=== PATIENT | female | born 1985 | race Hispanic/Latino ===

== ENCOUNTER 2017-04-24 10:45 | Inpatient (IN) | payer MEDICAID ==
[2017-04-24] VITALS (10 sets, daily range): BP systolic 109–119; BP diastolic 64–77; PULSE 88–97; RESP 15–18; O2SAT 95–99
[~2017-04-24] VITALS: Ht 149.9 cm; Wt 67.1 kg
[~2017-04-24 10:45] MED LIST: PREN1TAB69 PO; [UNRECOGNIZED DRUG - CODE] PO; actigall PO
--- NOTE | 2017-04-24 11:04 | ED.REPORT ---
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 The pt was at work this morning when she developed a gradual onset headache then became suddenly dizzy with blurred vision. She drank water and sat down, then experienced a syncopal episode. When she woke, she had a 10/ 10 pain in her pelvic area. The pt has also noticed recent yellowing of her eyes but denies nausea, vomiting, cough and chest pain. She recently had a negative workup for abdominal pain. The pt was on Mirena then Depo-Provera shots , which she stopped taking one month ago. She has not had a period in "years." Nursing Notes Stated Complaint: SYNCOPAL Nursing Notes Reviewed: Yes Allergies: Coded Allergies: No Known Allergies (Verified , 04/24/17) No Active Prescriptions or Reported Meds General Time Seen by Provider: 11:04 Chief Complaint Other (Syncope) Hx Obtained From: Patient, EMS Arrived By: Ambulance Onset Occurred: 46 - 59 minutes ago Recent Healthcare: Recent doctor visit Similar Sx Previous: No Past Medical History Past Medical History heart murmur pneumonia echocardiogram 11/2016: ASD with left to right shunt Past Surgical History shunt Smoking History Unknown if Ever Smoker Social History Other Social History: Good social support Ambulatory Status Independent Review of Systems Eyes: Reports: Blurred bilateral Respiratory: Denies: Non-productive cough, Shortness of breath Cardiovascular: Denies: Chest pain GI: Denies: Abdominal pain, Nausea, Vomiting Musculoskeletal: Denies: Back pain, Neck pain Skin: Denies Rash Neurologic: Reports: Dizziness, Headache, Syncope Complete sys rev & neg: except as marked. Additional Review of Systems Female: Reports: Pelvic pain Physical Exam Initial Vital Signs Vital Signs (First) Date Time Temp Pulse Resp B/P Pulse Ox O2 Delivery O2 Flow Rate FiO2 04/24/17 10:50 36.8 90 15 109/64 97 Room Air Initial VS: Reviewed General/Constitutional: Awake, Alert Respiratory / Chest: Atraumatic, Breath sounds NL, Breath sounds = bilat, No respiratory distress Cardiovascular: Heart rate NL, Regular rhythm murmur present Lower Extremity / Pelvis / MS: Atraumatic, Full range of motion Neurologic: Oriented X3, Speech NL, No motor deficits, No sensory deficits Head / Eyes: Atraumatic, Normocephalic, PERRL, EOMI ENT: Atraumatic, Airway patent, Mucous membranes moist Neck: Atraumatic, Supple, Full range of motion Abdomen: Atraumatic, Soft, Non-tender Back: Atraumatic, Full range of motion Skin: Atraumatic, No rash, Warm, Dry mildly jaundiced Psychiatric: Affect NL, Mood NL Upper Extremity / MS: Atraumatic, Full range of motion Rectum / Perineum: Atraumatic, No mass brown/orange stool guaiac negative Interpretation & Diagnostics Lab Results Interpretation Result Diagram: 04/24/17 1150 04/24/17 1119 Test 04/24/17 11:10 04/24/17 11:19 04/24/17 11:50 04/24/17 12:10 Prothrombin Time 11.7sec (8.1-12.5) Prothromb Time International Ratio 1.09ratio Activated Partial Thromboplast Time 25.7sec (22.8-33.0) Fibrinogen 211mg/dL (157-380) D-Dimer < 0.5mg/L FEU (<0.50) Sodium Level 136mEq/L (134-144) Potassium Level 4.2mEq/L (3.5-5.2) Chloride Level 100mEq/L (97-108) Carbon Dioxide Level 19mmol/L (18-29) Blood Urea Nitrogen 23mg/dL (6-20) Creatinine 1.05mg/dL (0.57-1.00) Estimat Glomerular Filtration Rate 88mL/min (>59) Glucose Level 105mg/dL (60-99) Calcium Level 8.5mg/dL (8.5-10.1) Magnesium Level 2.2mg/dL (1.6-2.6) Total Bilirubin 1.4mg/dL (0.0-1.2) Aspartate Amino Transf (AST/SGOT) 25U/L (0-50) Alanine Aminotransferase (ALT/SGPT) 33U/L (0-32) Alkaline Phosphatase 131U/L (25-150) Troponin T 0.010ug/L (0.0-0.011) Total Protein 7.5g/dL (6.4-8.4) Albumin 4.2g/dL (3.4-5.0) White Blood Count 12.5th/mm3 (3.8-10.1) Red Blood Count 2.41mil/mm3 (3.90-5.20) Hemoglobin 7.1g/dL (12.0-15.6) Hematocrit 20.5% (35.0-46.0) Mean Corpuscular Volume 85.1fL (81-100) Mean Corpuscular Hemoglobin 29.5pg (27.0-35.0) Mean Corpuscular Hemoglobin Concent 34.6% (32.0-37.0) Red Cell Distribution Width 15.3% (12.3-15.4) Platelet Count 20bil/L (150-400) Neutrophils (%) (Auto) 17.0% (40-74) Lymphocytes (%) (Auto) 63.3% (14-46) Monocytes (%) (Auto) 16.1% (4-12) Eosinophils (%) (Auto) 0.1% (0-5) Basophils (%) (Auto) 0.5% (0-3) Urine Color Yellow (YELLOW) Urine Appearance Clear (CLEAR,HAZY) Urine pH 5.5 (5.0-8.0) Urine Specific [place] 1.020 (1.003-1.035) Urine Protein Negativemg/dL (NEG,TRACE) Urine Glucose (UA) Negativemg/dL (NEGATIVE) Urine Ketones Negativemg/dL (NEGATIVE) Urine Occult Blood Trace (NEGATIVE) Urine Nitrite Negative (NEGATIVE) Urine Bilirubin Negative (NEGATIVE) Urine Urobilinogen Normalmg/dL (NORMAL) Urine Leukocyte Esterase Trace (NEGATIVE) Urine RBC 0-2/hpf (0-2) Urine WBC 0-5/hpf (0-5) Urine Epithelial Cells Few/hpf (NONE-MOD) Urine Crystals None seen (NONE SEEN) Urine Bacteria Few/hpf (NONE-FEW) Urine Hyaline Casts None/lpf (NONE) Urine Granular Casts None seen (NONE SEEN) Urine Waxy Casts None seen (NONE SEEN) Urine Red Blood Cell Casts None seen (NONE SEEN) Urine White Blood Cell Casts None seen (NONE SEEN) Urine Mucus None seen (None Seen) Urine Trichomonas None seen (NONE SEEN) Urine Yeast None (NONE SEEN) Urinalysis Comment None Urine Culture Reflexed Indicated Test 04/24/17 13:05 Lactic Acid Level 0.8mmol/L (0.4-2.0) Procalcitonin 0.16ng/mL (0.00-0.08) ECG Interpretation ECG Interpretation: normal sinus rhythm with a rate of 89 probable left atrial enlargement Time: 11:21 Interpreted by: ED physician X-Ray Chest Interpretation Chest Xray Interpretation: IMPRESSION: Cardiomegaly as before, without acute cardiopulmonary disease. Dictated by: Kenny Wagner M.D. on 04/24/2017 at 12:52 Approved by: Kenny Wagner M.D. on 04/24/2017 at 12:53 Interpretation / Wet Read by: Interpret - Radiologist CT Head Interpretation IMPRESSION: 1. No acute intracranial process. Dictated by: Lakshmi Leavitt M.D. on 04/24/2017 at 14:46 Approved by: Lakshmi Leavitt M.D. on 04/24/2017 at 14:47 Interpretation / Wet Read by: Interpret - Radiologist CT Abd / Pelvis Interpretation IMPRESSION: 1. Gallstones as before, without CT findings of acute cholecystitis. 2. The appendix appears normal in morphology. 3. Dominant 4.6 cm nonhemorrhagic left ovarian cyst, presumably functional given the patient's age. If there is left adnexal region tenderness, consider 6-12 week followup pelvic ultrasound to confirm expected size decrease or resolution. 4. Interval increased prominence of several normal sized bilateral iliac chain lymph nodes since 2006, of uncertain etiology. Early lymphoma may be a possibility. Dictated by: Kenny Wagner M.D. on 04/24/2017 at 14:45 Approved by: Kenny Wagner M.D. on 04/24/2017 at 14:57 Interpretation / Wet Read by: Interpret - Radiologist Re-Eval/Medical Decision Med Decision/Clinical Course Symptomatic anemia as well as thrombocytopenia without any evidence of infection or bleeding. Concern for previously undiagnosed malignancy. Patient will be transfused in the ER. Source of Hx: Old records Re-Evaluation/Progress #1: Time of Eval: 13:15 Patient Status: Condition improved Re-Evaluation/Progress Note: Pt rechecked, who is resting. Additional physical exam is performed. Re-Evaluation/Progress #2: Time of Eval: 15:01 Patient Status: Condition improved Re-Evaluation/Progress Note: Pt rechecked, who is resting. Lab and radioogy results are discussed. The diagnosis and plan for admission are discussed. The pt understands and agrees with the plan. All questions are addressed at this time. Counseled Regarding: Diagnosis, Lab results, Need for admission Discharge & Departure Impression: Primary Impression: Syncope Syncope type: unspecified Qualified Code: R55 - Syncope and collapse Additional Impressions: Symptomatic anemia Thrombocytopenia Disposition: ADMITTED TO HOSPITAL Discharge Condition All VS Reviewed: Yes Condition: Stable Referrals: Kathy Wolf MD (PCP) Crit Care Except Billable Proc Time Spent: 30-74 minutes (33 minutes) Services Performed: Patient management by me, Time spent at bedside, Reviewing test results Critical Care Notes: See MDM Scribe Attestation Portions of this note were transcribed by Carmen Woods. I, Dr. Iniguez personally performed the history, physical exam and medical decision-making; I reviewed and confirmed the accuracy of the information in the transcribed note. copies to: Kathy Wolf MD, Timothy S DO Apr 24, 2017 11:04 CARMEN WOODS Apr 24, 2017 11:13
[2017-04-24] MEDS ORDERED: 0.9% Sodium Chloride 1,000 ML IV ONE (11:15)
[2017-04-24 11:23] LABS: EOSINOPHILS % (AUTO) 0 % (0-5); Mean Corpuscular Hemoglobin 29.6 pg (27.0-35.0); Mean Corpuscular Volume 85.8 fL (81-100)
[2017-04-24 11:35] LABS: TROPONIN T 0.01 ug/L (0.0-0.011)
[2017-04-24 11:46] LABS: Magnesium 2.2 mg/dL (1.6-2.6)
[2017-04-24 11:55] LABS: BASOPHILS % (AUTO) 0 % (0-3); MONOCYTES % (AUTO) 1 % (4-12); NEUTROPHILS % (AUTO) 19 % (40-74); Platelet Count 23 bil/L (150-400)
[2017-04-24 12:10] LABS: BASOPHILS % (AUTO) 0.5 % (0-3); EOSINOPHILS % (AUTO) 0.1 % (0-5); MONOCYTES % (AUTO) 16.1 % (4-12); Mean Corpuscular Hemoglobin 29.5 pg (27.0-35.0); Mean Corpuscular Volume 85.1 fL (81-100)
[2017-04-24 12:39] LABS: D-Dimer < 0.5 mg/L FEU (<0.50); INR 1.09 ratio
[2017-04-24 12:51] LABS: Platelet Count 20 bil/L (150-400)
--- NOTE | 2017-04-24 12:54 | DRSVH ---
PROCEDURE: X-RAY CHEST ONE VIEW, PORTABLE ([id number]) INDICATIONS: 31 year-old female with syncope. TECHNIQUE: One view of the chest was acquired. COMPARISON: [facility], , CHEST 1VW (PORTABLE), 03/18/2009, 13:47. [facility], , CHEST 1VW (PORTABLE), 03/14/2009, 13:36. [facility], CHEST 1VW, 03/11/2009, 9 :28. FINDINGS: Surgical changes and devices: None. Lungs and pleura: No pleural effusions or pneumothorax. Lungs are clear. Mediastinum: Mediastinal contours appear normal. Cardiomegaly is unchanged. Bones and chest wall: No suspicious bony lesions. Overlying soft tissues appear unremarkable. IMPRESSION: Cardiomegaly as before, without acute cardiopulmonary disease. Dictated by: Kenny Wagner M.D. on 04/24/2017 at 12:52 Approved by: Kenny Wagner M.D. on 04/24/2017 at 12:53
[2017-04-24 14:11] LABS: APPEARANCE,URINE CLEAR (CLEAR,HAZY); COLOR,URINE YELLOW (YELLOW); OCCULT BLOOD,URINE TRACE (NEGATIVE); PH,URINE 5.5 (5.0-8.0); UROBILINOGEN,URINE NORMAL (NORMAL)
--- NOTE | 2017-04-24 14:48 | DRSVH ---
PROCEDURE: CT BRAIN WITHOUT CONTRAST ([id number]) INDICATIONS: headache thrombocytopenia TECHNIQUE: Noncontrast 4.5 mm thick angled axial sections acquired from the foramen magnum to the vertex, with c oronal reformats. COMPARISON: None. FINDINGS: Image quality: Excellent. CSF spaces: Basal cisterns are patent. No extra-axial fluid collections. Ventricles are normal in size and shape. Brain: No midline shift. No intracranial masses or hemorrhage. Palafox-white matter interface is norm al. Skull and face: Calvarium and visualized facial bones are intact, without suspicious lesions. Sinuses: Visualized sinuses and mastoids are clear. IMPRESSION: 1. No acute intracranial process. Dictated by: Lakshmi Leavitt M.D. on 04/24/2017 at 14:46 Approved by: Lakshmi Leavitt M.D. on 04/24/2017 at 14:47
--- NOTE | 2017-04-24 14:59 | DRSVH ---
PROCEDURE: CT ABDOMEN AND PELVIS WITH CONTRAST ([id number]) INDICATIONS: 31 year-old female with lower abdominal pain and thrombocytopenia. TECHNIQUE: After the administration of intravenous contrast, 5 mm thick sections acquired from the diaphragm to the symphysis. 5 mm coronal and sagittal reformats were acquired. For radiation dose reduction, the following was used: automated exposure control, adjustment of mA and/or kV according to patient siz razia. COMPARISON: [facility], CT, ABD/PELVIS W/CON (PN), 05/17/2007, 21:16. FINDINGS: Image quality: Excellent. ABDOMEN: Lung bases: Lung bases are clear, except for left lung base linear and nodular scarring that is unch anged since 2006. Heart size is upper normal. Solid organs: Liver and spleen are normal in size and enhancement. Gallbladder contains several dep endent noncalcified gallstones as before. Biliary system is non dilated. Pancreas enhances normally . No adrenal nodules. Kidneys demonstrate normal size and enhancement, without hydronephrosis. Peritoneum and bowel: Bowel loops demonstrate normal wall thickness and caliber. The appendix appea rs normal on axial image 53. No free fluid or air. Nodes and vessels: No retroperitoneal or mesenteric adenopathy by size criteria. Aorta and inferior vena cava are normal in size. Miscellaneous: No ventral hernias. PELVIS: Genitourinary: Bladder wall thickness is normal. Uterus and right ovary appear normal in size. Ther e is a dominant 4.6 cm left ovarian cyst, measuring 16.1 Hounsfield units in density. Miscellaneous: No inguinal hernias or adenopathy. On axial image 66, bilateral normal sized iliac c yu and pelvic side wall lymph nodes have increased in prominence since 2006. Bones: No suspicious bony lesions. No vertebral body compression fractures. IMPRESSION: 1. Gallstones as before, without CT findings of acute cholecystitis. 2. The appendix appears normal in morphology. 3. Dominant 4.6 cm nonhemorrhagic left ovarian cyst, presumably functional given the patient's age. I f there is left adnexal region tenderness, consider 6-12 week followup pelvic ultrasound to confirm e xpected size decrease or resolution. 4. Interval increased prominence of several normal sized bilateral iliac chain lymph nodes since 2006 , of uncertain etiology. Early lymphoma may be a possibility. Dictated by: Kenny Wagner M.D. on 04/24/2017 at 14:45 Approved by: Kenny Wagnre M.D. on 04/24/2017 at 14:57
[2017-04-24] MEDS ORDERED: Polyethylene Glycol (PEG) 17 Gm Powder PO PRN (15:20)
[2017-04-24] MEDS ORDERED: Ondansetron 2 mg/mL 2 mL Inj IVPUSH PRN (15:20)
[2017-04-24] MEDS ORDERED: Alum-Mag Hydrox-Simeth 30 mL Suspension PO PRN (15:20)
--- NOTE | 2017-04-24 17:14 | NUR ---
Admit to [facility] Report received from ER Kaylene Villegas RN. awaiting patient from ER. Admit and med req done.
[2017-04-24] MEDS: 0.9% Sodium Chloride 250 ML IV SCH (17:27)
--- NOTE | 2017-04-24 17:48 | PCM.HPMED ---
Subjective Date of Service Apr 24, 2017 Primary Provider: Admitting Physician: Luis Boo Primary Care Physician: Kathy Wolf MD Attending Physician: Luis Boo Admit Status: From the Emergency Department, Admit to Red Team Chief Complaint: Syncope History of Present Illness: Ms. Castorena is a 31 female with past medical history of congenital heart murmur with ASD with [id number] shunt who presents to the ED via EMS secondary to syncopal episode. 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 She does not know how long she was unconscious for an denies any pain before after the event. She states this sort of thing has never happened before but she does state that she has been feeling weak for the last 4 days with a mild headache for the last 2 weeks. She denies fever or chills, nausea vomiting diarrhea, current visual changes, current lightheadedness or dizziness, chest pain, shortness of breath, abdominal pain, change in bladder habits numbness or tingling in her extremities. She does state she has a mild persistent headache. Of note the patient had an IUD in place until June 2016 and was given a double shot at that time. She has not had her period in 10 months. She is currently asymptomatic. Primary care physician is Dr. Wolf from [facility] In the ED chest x-ray showed cardiomegaly, head CT showed no acute process, abdominal CT showed left ovarian cyst and interval increased prominence of several normal-sized bilateral iliac chain lymph nodes since 2006, of uncertain etiology. Early lymphoma may be a possibility Review of Systems: A comprehensive review of systems was conducted with the patient and found to be negative except as above in the history of present illness. Allergies Coded Allergies: No Known Allergies (Verified , 04/24/17) Home Medications None reported Exam Vital Signs & I/O Vital Sign- Last 8 Hours Date Time Temp Pulse Resp B/P Pulse Ox O2 Delivery O2 Flow Rate FiO2 04/26/17 04:42 36.4 69 18 110/71 99 Room Air 04/26/17 03:07 70 04/26/17 00:14 36.8 76 16 109/71 99 Room Air Intake and Output- Last 8 Hour 04/26/17 Cumulative From/Thru 06:59 04/24/17 10:50 - 04/26/17 05:20 Intake Total 400 ml 2935 ml Output Total 420 ml 1170 ml Balance -20 ml 1765 ml Intake Oral 400 ml 1550 ml IV Total 1035 ml Packed Cells 350 ml Output Urine Total 420 ml 1170 ml Lab & Micro Results Laboratory Tests Test 04/25/17 09:27 04/25/17 12:06 04/25/17 17:54 04/25/17 18:37 Serum Immunoglobulin A 203mg/dL (87-352) Serum Immunoglobulin G 1284mg/dL (700-1600) Total Bilirubin 1.4mg/dL (0.0-1.2) Direct Bilirubin 0.2mg/dL (0.0-0.3) Immunoglobulin M 151mg/dL (26-217) Microbiology 04/24/17 Blood Culture - Preliminary, Resulted NO GROWTH AFTER 24 HOURS 04/24/17 Urine Culture - Final, Complete Mixed Urogenital Nhi Result Diagram: 04/25/17 0620 04/25/17 0620 Review of Systems: Constitutional: Negative, except as otherwise mentioned in the history above. Ophthalmologic: Negative, except as otherwise mentioned in the history above. Cardiovascular: Negative, except as otherwise mentioned in the history above. Respiratory: Negative, except as otherwise mentioned in the history above. Gastrointestinal: Negative, except as otherwise mentioned in the history above. Genitourinary: Negative, except as otherwise mentioned in the history above. Musculoskeletal: Negative, except as otherwise mentioned in the history above. Neurological: Negative, except as otherwise mentioned in the history above. Psychiatric: Negative, except as otherwise mentioned in the history above. Hematologic/Lymphatic: Negative, except as otherwise mentioned in the history above. Allergic/Immunologic: Negative, except as otherwise mentioned in the history above. PMH heart murmur pneumonia echocardiogram 11/2016: ASD with left to right shunt 2 previous pregnancies Surgical History Denies Family History States mother passed from diabetes Father still alive 2 brothers, 4 sisters. One sister with heart murmur Social History Hx Alcohol Use: No Hx Substance Use: No Hx Tobacco Use: No Smoking Status: Unknown if Ever Smoker Living Arrangement: with Family Exam Vital Signs Vital Sign - Last Date Time Temp Pulse Resp B/P Pulse Ox O2 Delivery O2 Flow Rate FiO2 04/24/17 17:37 36.7 90 16 114/70 04/24/17 17:29 99 Room Air Exam General: Awake and alert lying in hospital bed in no acute distress, well- developed, well-nourished, appropriately interactive. Upper Sorbian-speaking only, remote white goods appliance tech used for interview and exam HEENT: Normocephalic, atraumatic. External ears without defect. Pupils equal, round, and reactive to light and accommodation scleral icterus, moist conjunctivae, and no lid lag. Oropharynx free of erythema and cobble stoning with moist mucosa. Neck: Supple with full range of motion. No jugular venous distension. No bruits. Cardiovascular: Regular rate and rhythm blowing systolic murmur Pulmonary: Clear to auscultation bilaterally with no crackles, wheezes, or rhonchi. Normal respiratory effort with no use of accessory muscles. Abdomen: Bowel tones present. Soft, nontender, nondistended. No hepatosplenomegaly or masses appreciated. Extremities: No clubbing, cyanosis, edema. Brachydactyly. Skin: Normal temperature, turgor, and texture, mild jaundice Neurological: Cranial nerves grossly intact. Psychiatric: Normal mood and affect. Alert and oriented to person, place, and time. Lab and Diagnostics Result Diagram: 04/25/1761904/25/17619 X-Rays, CTs and MRIs . X-RAY CHEST ONE VIEW, PORTABLE IMPRESSION: Cardiomegaly as before, without acute cardiopulmonary disease. Dictated by: Kenny Wagner M.D. on 04/24/2017 CT BRAIN WITHOUT CONTRAST IMPRESSION: 1. No acute intracranial process. Dictated by: Lakshmi Leavitt M.D. on 04/24/2017 CT ABDOMEN AND PELVIS WITH CONTRAST IMPRESSION: 1. Gallstones as before, without CT findings of acute cholecystitis. 2. The appendix appears normal in morphology. 3. Dominant 4.6 cm nonhemorrhagic left ovarian cyst, presumably functional given the patient's age. If there is left adnexal region tenderness, consider 6- 12 week followup pelvic ultrasound to confirm expected size decrease or resolution. 4. Interval increased prominence of several normal sized bilateral iliac chain lymph nodes since 2006, of uncertain etiology. Early lymphoma may be a possibility. Dictated by: Kenny Wagner M.D. on 04/24/2017 Cardiac Echo Impressions . Echocardiogram Report 11/23/2016 Interpretation Summary: Normal left ventricle size with ejection fraction 60-65%. Flattened septum is consistent with RV pressure/volume overload. Moderately dilated right ventricle with normal systolic function. Severely dilated right atrium. Mildly dilated left atrium. Mild mitral regurgitation. Mild tricuspid regurgitation. There is a large ASD that measures at 2.7 cm. with left to right ishunt. The right ventricular systolic pressure is estimated at 38 mmHg assuming a right atrial pressure of 3 mm Hg. Electronically signed by: Harjinder Adams 11/23/2016 Assessment & Plan Ms. Castorena is a 31 female with past medical history of congenital heart murmur with ASD with [id number] shunt who presents to the ED via EMS secondary to syncopal episode and thrombocytopenia. Syncope present on admission. Under evaluation Possibly secondary to cardiac defect with concomitant anemia EKG shows normal sinus rhythm HR 89 Nurse to perform orthostatics Echo from 12/06/2016 as above Repeat echo pending Continue to monitor Thrombocytopenia. Present on admission. Ongoing Consider platelet transfusion Continue to monitor Anemia. Present on admission. Ongoing Transfuse 1 unit PRBCs Continue to monitor Leukocytosis, present on admission. Ongoing White count 20.4 on admit, repeat value 12.5 30 minutes later Afebrile, lactic acid normal, pro-calcitonin essentially negative Continue to monitor Patient Status: Patient was admitted under inpatient status with expected length of stay greater than two midnights due to severity of presenting symptoms , risk of adverse event, and complexity of treatment plan. Resuscitation Status: CPR: Attempt Resuscitation Attending Statement The patient was seen and examined together with Dr. WAGGONER on 04/24/17 and I agree with the history, exam and plan as outlined in the note above. ALLIE WAGGONER DO Apr 24, 2017 17:48 Luis Boo Apr 26, 2017 07:30
--- NOTE | 2017-04-24 17:51 | NUR ---
Blood transfusion Patient arrived to unit 1725. Vital signs WNL. Consent for blood signed in the ER and placed in chart. Software Business Analyst at bed side. per patient report she has recieved one time blood in the past in 2008. Blood products involving risks/side effects has been reviewed. call light with in reach. Blood started at 1743 and infusing at this time with no sign and symptoms of adverse effect. No sign and symptoms of cardiac or respiratory distress noted. Denies abdominal pain, nausea or vomiting. Family at bed side. Tele on per substance abuse technician [id number]. Stable vital signs. Sloan varma hospitalist. Continue to monitor.
[2017-04-24 23:29] LABS: Mean Corpuscular Hemoglobin 29.8 pg (27.0-35.0); Mean Corpuscular Volume 86.2 fL (81-100)
[2017-04-24 23:30] LABS: BASOPHILS % (AUTO) 0 % (0-3); EOSINOPHILS % (AUTO) 0 % (0-5); MONOCYTES % (AUTO) 4 % (4-12); NEUTROPHILS % (AUTO) 21 % (40-74)
[2017-04-24 23:31] LABS: Platelet Count 19 bil/L (150-400)
[2017-04-25] VITALS (7 sets, daily range): BP systolic 100–120; BP diastolic 63–77; PULSE 76–90; RESP 18; O2SAT 97–99
[2017-04-25 06:47] LABS: Mean Corpuscular Hemoglobin 29.6 pg (27.0-35.0); Mean Corpuscular Volume 86.3 fL (81-100)
[2017-04-25 09:11] LABS: Unsaturated Iron Binding 14.7 ug/dL
--- NOTE | 2017-04-25 11:29 | DRSVH ---
[facility] [address] [place] [address] Echocardiogram Report Name: NEREIDA RUSSELL Study Date: 04/25/2017 Height: 59 in Hospital Exam Location: [facility] Weight: 14 8 lb Gender: Female BSA: 1.6 m2 : 1985 Age: 31 yrs BP: 108/70 mmHg Reason For Study: VSD Ordering Physician: HOSPITALIST [facility] Performed By: Nenita Gallegos Referring Physician: Elijah Sutton Interpretation Summary The left ventricle is normal in size. There is no ventricular septal defect visualized. The ejection fraction is estimated to be 55-60%. Flattened septum is consistent with RV pressure/volume overload. There is septal wall mild hypokinesis. Assessment of diastolic parameters indicates a relaxation abnormality of the left ventricle, consistent with normal filling pressures. The right ventricle is moderate to severely dilated. The right ventricular systolic function is normal. The right ventricular systolic pressure is estimated at least 63 mmHg assuming a right atrial pressure of 8 mm Hg. Compared to the prior echo exam, there has been an increase in the severity of pulmonary hypertension. The left atrium is severely dilated. The right atrium is severely dilated. The atrial septal defect is large. A secundum type atrial septal defect is present. Doppler evidence suggests a left to right interatrial shunt. Measuring 2.7 cm. There is mild to moderate tricuspid regurgitation. There is mild to moderate pulmonic regurgitation. Increased velocities through PV valve. Peak velocity is 2.37. Mean gradient is 15 mmHg. The aortic root is normal size. Severe pulmonary artery dilation. PA measuring 3.9cm. Slight increase compaired to previous study. The IVC is dilated (diameter is greater than 2.1 cm) yet it collapses greater than 50% with a sniff. This suggests a right atrial pressure of 8 mm Hg. Procedure: A two-dimensional transthoracic echocardiogram with color flow and Doppler was performed. The study quality was technically adequate. Comparison is made with the echocardiogram of 11/23/16. The patient was in normal sinus rhythm during the exam. Left Ventricle: The left ventricle is normal in size. There is normal left ventricular wall thickness. There is no ventricular septal defect visualized. The ejection fraction is estimated to be 55-60%. Flattened septum is consistent with RV pressure/volume overload. There is septal wall mild hypokinesis. Assessment of diastolic parameters indicates a relaxation abnormality of the left ventricle, consistent with normal filling pressures. Right Ventricle: The right ventricle is moderate to severely dilated. The right ventricular systolic function is normal. Atria: The left atrium is severely dilated. The right atrium is severely dilated. The atrial septal defect is large. A secundum type atrial septal defect is present. Doppler evidence suggests a left to right interatrial shunt. Measuring 2.7 cm. Mitral Valve: The mitral valve leaflets appear thickened, but open well. There is borderline mitral valve prolapse. There is mild mitral regurgitation. Aortic Valve: The aortic valve is normal in structure and function. No aortic regurgitation is present. Tricuspid Valve: The tricuspid valve is normal. There is mild to moderate tricuspid regurgitation. The right ventricular systolic pressure is estimated at least 63 mmHg assuming a right atrial pressure of 8 mm Hg. Compared to the prior echo exam, there has been an increase in the severity of pulmonary hypertension. Pulmonic Valve: The pulmonic valve leaflets are thin and pliable; valve motion is normal. Increased velocities through PV valve. Peak velocity is 2.37. Mean gradient is 15. There is mild to moderate pulmonic regurgitation. Great Vessels: The aortic root is normal size. The ascending aorta is normal in size. The aortic arch is normal in size. Severe pulmonary artery dilation. PA measuring 3.9cm. Slight increase compaired to previous study. The IVC is dilated (diameter is greater than 2.1 cm) yet it collapses greater than 50% with a sniff. This suggests a right atrial pressure of 8 mm Hg. Pericardium/ Pleura There is no pericardial effusion. There is no pleural effusion. MMode/2D Measurements & Calculations LVIDd: 3.9 cm RA long axis LVOT diam: 1.3 cm LVIDs: 2.4 cm LA A2 area: 22.6 cm AoV Opening FS: 39.4 % LA A4 area: 25.3 cm RA area EPSS: 0.72 cm LA length (vol) Ao root diam IVSd: 0.58 cm : 38.5 cm LVPWd: 0.82 cm LA vol: 79.7 ml RA vol asc Aorta Diam LA vol index : 175.ml RA Ao Arch Diam (Prox : 107.9 mm2 Trans): 2.1 cm IVC diam: 2.3 cm LV gilbert. diameter/BSA LV sys. diameter/BSA RVD1 (basal) RVD2 (mid): 5.9 cm (cm/m^2): 2.4 (cm/m^2): 1.4 Doppler Measurements & Calculations Ao V2 max MV E max abel MV E/A: 0.70 TR max abel : 134.6 cm/sec : 55.2 cm/sec Med Peak E' Abel : 369.9 cm/sec Ao max PG MV A max abel TR max PG : 7.3 mmHg : 78.6 cm/sec E/E' med: 5.6 : 54.7 mmHg Ao mean PG MV P1/2t: 42.7 msec PA V2 max : 237.1 cm/sec LVOT Max Abel PA mean PG : 92.8 cm/sec : 15.3 mmHg ESAU(I,D): 0.92 cm sev ratio MV dec time MV P1/2t max abel Ao V2 mean LV V1 max PG : 0.15 sec : 98.4 cm/sec MVA(P1/2t): 5.2 cm2 Ao V2 VTI: 26.5 cmLV V1 VTI ESAU(V,D): 0.93 cm2: 18.1 cm PA V2 mean ESAU indexed to BSA : 188.0 cm/sec (cm^2/m^2): 0.56 Reading Physician:MALCOLM
--- NOTE | 2017-04-25 13:00 | NUR ---
Headache Communication completed via computed tomography technologist. Pt complained of JONES pain, does not normally have headaches at home, requested something for relief. Tylenol requested and ordered from MD. Pt reports good relief from JONES pain. Call light in reach will continue to monitor.
--- NOTE | 2017-04-25 13:11 | PCM.PNMED ---
Subjective Date of Service Apr 25, 2017 Subjective generalized weakness improved after transfusion. low platelets. she states she has lost 6 pounds in the last few weeks . Exam Vital Signs Vital Sign - Last Date Time Temp Pulse Resp B/P Pulse Ox O2 Delivery O2 Flow Rate FiO2 04/25/17 10:32 36.7 78 18 100/65 99 Room Air Intake and Output 04/24/17 04/24/17 04/25/17 Cumulative From/Thru 15:00 23:00 07:00 04/24/17 10:50 - 04/24/17 20:50 Intake Total 1385 ml 1385 ml Balance 1385 ml 1385 ml IV Total 1035 ml 1035 ml Packed Cells 350 ml 350 ml Exam General: Awake and alert lying in hospital bed in no acute distress, well- developed, well-nourished, appropriately interactive. 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 External ears without defect. Neck: Supple with full range of motion. No jugular venous distension. No bruits. no lymphadenopathy in cervical and axillary area Cardiovascular: Regular rate and rhythm blowing systolic murmur Pulmonary: Clear to auscultation bilaterally with no crackles, wheezes, or rhonchi. Normal respiratory effort with no use of accessory muscles. Abdomen: Bowel tones present. Soft, nontender, nondistended. No hepatosplenomegaly or masses appreciated. Extremities: No clubbing, cyanosis, edema. Brachydactyly. Skin: Normal temperature, turgor, and texture, mild jaundice Neurological: Cranial nerves grossly intact. Psychiatric: Normal mood and affect. Alert and oriented to person, place, and time. IVs and Medications Medications Reviewed: Medications were reviewed in detail Lab and Diagnostics Result Diagram: 04/25/1761904/25/17619 X-Rays, CTs and MRIs . X-RAY CHEST ONE VIEW, PORTABLE IMPRESSION: Cardiomegaly as before, without acute cardiopulmonary disease. Dictated by: Kenny Wagner M.D. on 04/24/2017 CT BRAIN WITHOUT CONTRAST IMPRESSION: 1. No acute intracranial process. Dictated by: Lakshmi Leavitt M.D. on 04/24/2017 CT ABDOMEN AND PELVIS WITH CONTRAST IMPRESSION: 1. Gallstones as before, without CT findings of acute cholecystitis. 2. The appendix appears normal in morphology. 3. Dominant 4.6 cm nonhemorrhagic left ovarian cyst, presumably functional given the patient's age. If there is left adnexal region tenderness, consider 6- 12 week followup pelvic ultrasound to confirm expected size decrease or resolution. 4. Interval increased prominence of several normal sized bilateral iliac chain lymph nodes since 2006, of uncertain etiology. Early lymphoma may be a possibility. Dictated by: Kenny Wagner M.D. on 04/24/2017 Cardiac Echo Impressions . Echocardiogram Report 11/23/2016 Interpretation Summary: Normal left ventricle size with ejection fraction 60-65%. Flattened septum is consistent with RV pressure/volume overload. Moderately dilated right ventricle with normal systolic function. Severely dilated right atrium. Mildly dilated left atrium. Mild mitral regurgitation. Mild tricuspid regurgitation. There is a large ASD that measures at 2.7 cm. with left to right ishunt. The right ventricular systolic pressure is estimated at 38 mmHg assuming a right atrial pressure of 3 mm Hg. Electronically signed by: Harjinder Adams 11/23/2016 ECHO 04/25/17 Interpretation Summary The left ventricle is normal in size. There is no ventricular septal defect visualized. The ejection fraction is estimated to be 55-60%. Flattened septum is consistent with RV pressure/volume overload. There is septal wall mild hypokinesis. Assessment of diastolic parameters indicates a relaxation abnormality of the left ventricle, consistent with normal filling pressures. The right ventricle is moderate to severely dilated. The right ventricular systolic function is normal. The right ventricular systolic pressure is estimated at least 63 mmHg assuming a right atrial pressure of 8 mm Hg. Compared to the prior echo exam, there has been an increase in the severity of pulmonary hypertension. The left atrium is severely dilated. The right atrium is severely dilated. The atrial septal defect is large. A secundum type atrial septal defect is present. Doppler evidence suggests a left to right interatrial shunt. Measuring 2.7 cm. There is mild to moderate tricuspid regurgitation. There is mild to moderate pulmonic regurgitation. Increased velocities through PV valve. Peak velocity is 2.37. Mean gradient is 15 mmHg. The aortic root is normal size. Severe pulmonary artery dilation. PA measuring 3.9cm. Slight increase compaired to previous study. The IVC is dilated (diameter is greater than 2.1 cm) yet it collapses greater than 50% with a sniff. This suggests a right atrial pressure of 8 mm Hg Assessment & Plan Ms. Castorena is a 31 female with past medical history of congenital heart murmur with ASD with [id number] shunt who presents to the ED via EMS secondary to syncopal episode and thrombocytopenia. # Syncope due to symptomatic anemia present on admission. 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 Present on admission. Ongoing -platelets 20 Continue to monitor # suspected autoimmune hemolytic Anemia. Present on admission. Ongoing -consistent with hemolytic,high LDH and Tbili,haptoglobulin pending Transfused 1 unit PRBCs on 04/24 Continue to monitor # Leukocytosis, present on admission. Ongoing White count 20.4 on admit, repeat value 12.5 30 minutes later Afebrile, lactic acid normal, pro-calcitonin essentially negative Continue to monitor Patient Status: Patient was admitted under inpatient status with expected length of stay greater than two midnights due to severity of presenting symptoms , risk of adverse event, and complexity of treatment plan. discharge 1-2 days pending hematology rec Resuscitation Status: CPR: Attempt Resuscitation Raul Padilla MD Apr 25, 2017 13:10
[2017-04-25] MEDS: 0.9% Sodium Chloride 250 ML IV SCH (16:00)
[2017-04-25 18:17] LABS: Bilirubin, Direct 0.2 mg/dL (0.0-0.3)
--- NOTE | 2017-04-25 19:10 | CONS ---
[address] [address] CONSULTATION REPORT PATIENT: NEREIDA CONTRREAS : 1985 MR#: [id number] ADMIT: 04/24/2017 JOB ID: [id number] DATE OF SERVICE: 04/25/2017 HISTORY OF PRESENT ILLNESS: The patient is a 31-year-old woman referred for evaluation and management of leukocytosis with associated lymphocytosis and anemia. She has normocytic anemia and profound thrombocytopenia. She was hospitalized following an episode of syncope, which she experienced while at work. She had developed a gradual-onset headache, then dizziness with blurred vision prior to her syncopal episode. She subsequently had 10/10 pain in the pelvic area, without nausea, vomiting or change in bowel habits. She has not had a menstrual cycle in years, as she has been on Mirena, then Depo-Provera shots. She denies bleeding. Workup in the emergency department included CT of the brain, which showed no acute intracranial process, and abdominal/pelvic CT, which showed a 4.6 cm nonhemorrhagic left ovarian cyst with several prominent bilateral iliac chain lymph nodes of uncertain etiology. There were also incidental gallstones without findings of acute cholecystitis. Appendix appeared normal in morphology. A chest film showed cardiomegaly without acute cardiopulmonary disease. She has a history of tuberculosis treated in 2008 with Rifampin, pyridoxine, pyrazinamide, ethambutol and isoniazid. Her most recent laboratory studies prior to the current admission available in [facility] on February 08, 2011 showed a normal white cell count of 7.7 with hemoglobin 11.1, hematocrit 33.5%, MCV 89, and platelets of 120,000. Admission laboratory studies in the emergency department on April 24, 2017 had a total white count of 20.4 with 80% lymphocytes, 19% neutrophils, with a hemoglobin 7.9, hematocrit 22.9%, and platelets of 23,000. Laboratory studies earlier today had a total white count of 12.2 with hemoglobin 8.4, hematocrit 24.5%, and platelets of 20,000. She had a normal reticulocyte count of 0.6%. Haptoglobin is pending. PAST MEDICAL HISTORY: 1. Tuberculosis treated in 2008. 2. Syncope. 3. control. 4. Abdominal pain. 5. ASD with [id number] shunt on echocardiogram, November 2016. 6. Pneumonia. 7. Heart murmur. ALLERGIES: No known drug allergies. MEDICATIONS: 1. Tylenol p.r.n. 2. Famotidine 10 mg p.o. b.i.d. 3. Maalox Plus p.r.n. 4. Zofran p.r.n. 5. Senokot p.r.n. 6. MiraLAX p.r.n. FAMILY HISTORY: The patient is unaware of any blood disorders or cancers. SOCIAL HISTORY AND HABITS: The patient and her live in [place]. She is and speaks little to no South Korean. She is a nonsmoker, nondrinker and denies recreational drug use. REVIEW OF SYSTEMS: She had some recent headaches. No acute change in vision. She denies any fevers. No bleeding or atypical bruising. She denies any recent cough or shortness of breath. No nausea, vomiting, diarrhea or constipation. No abdominal pain. No bleeding or atypical bruising. She has had abdominal pain which has improved. No dysuria. No significant arthritic concerns. PHYSICAL EXAMINATION: This is a pleasant, younger, woman in no acute distress. Vitals: T 36.7, P 78, R 18, BP 100/65, O2 saturation 99% on room air. Height: 149.86 cm, weight 147 pounds (67.1 kg). HEENT: Pupils equally round, reactive to light. Extraocular muscles intact. Sclerae anicteric. Conjunctivae pale. Mucous membranes moist. No oral lesions. Nodes: No adenopathy in the neck or axilla. Chest is clear. No wheezes or crackles. Cardiac exam: Regular rate and rhythm with normal S1, S2. No murmurs, rubs, or gallops appreciated. Abdomen soft, nontender. Normoactive bowel tones. No palpable splenomegaly or masses. Extremities: No edema. 2+ distal pulses. No calf tenderness. No cyanosis or clubbing. No petechiae or ecchymoses. Neuro: Alert and cooperative with no gross focal deficits. LABORATORIES: WBC 15.2 with 21% neutrophils, 67% lymphocytes, 7% bands, hemoglobin 8.4, hematocrit 24.3%, platelets 19,000. Sodium 138, potassium 4.2, BUN 19, creatinine 0.71, glucose 92, calcium 8.4, albumin 3.8, iron 251, TIBC 266, percent saturation 94%, total bilirubin 1.5, direct bilirubin pending. AST 20, ALT 27, alkaline phosphatase 119. PT 11.7, INR 1.1, PTT 25.7, fibrinogen 211. Haptoglobin pending. ASSESSMENT AND PLAN: Lymphocytic leukocytosis with severe anemia and profound thrombocytopenia: The patient, who has a remote history of tuberculosis treated with multidrug regimen in 2008, but no significant history of cytopenias, presented with a syncopal episode. Imaging of the brain was unremarkable. Imaging below the diaphragm did not show any significant findings in the abdomen or pelvis other than a 4.6 cm nonhemorrhagic left ovarian cyst and several normal-sized bilateral iliac chain lymph nodes of uncertain etiology. Plain chest film showed no acute cardiopulmonary disease. Given her prior history, I recommend CT imaging of the chest to evaluate for any evidence of reactivated tuberculosis. Patients with syncope also have a high rate of pulmonary embolic disease. Differential diagnosis for her hematologic findings includes reactivated tuberculosis, or chronic lymphocytic leukemia with associated autoimmune hemolytic anemia/thrombocytopenia. There is no obvious blood loss, but consider further evaluation. Active blood loss is often associated with reticulocytosis, which she does not exhibit. Obtain flow cytometry with immunophenotyping for leukemia/lymphoma. Obtain globulin levels to help with diagnosis. Tuberculosis is often associated with hypergammaglobulinemia while chronic lymphocytic leukemia is frequently associated with hypogammaglobulinemia. In addition, await results of haptoglobin and fractionated bilirubin. Up to 10% of patients with chronic lymphocytic leukemia can develop an autoimmune hemolytic anemia and immune-mediated thrombocytopenia. This often responds to treatment with steroids and transfusion support as needed. However, if this is reactivated tuberculosis, then high-dose steroid treatment may be contraindicated. We will continue to monitor along with the hospitalist team. The patient appears clinically stable at this time. Thank you Dr. Padilla for this consultation. [facility]
[2017-04-26] VITALS (9 sets, daily range): BP systolic 109–115; BP diastolic 65–77; PULSE 69–85; RESP 16–18; O2SAT 99
[2017-04-26 08:31] LABS: Mean Corpuscular Hemoglobin 29.8 pg (27.0-35.0); Mean Corpuscular Volume 85.6 fL (81-100)
[2017-04-26 09:14] LABS: ERYTHROCYTE SEDIMENTATION RATE 49 mm/hr (0-32)
[2017-04-26 09:27] LABS: BASOPHILS % (AUTO) 0 % (0-3); EOSINOPHILS % (AUTO) 0 % (0-5); MONOCYTES % (AUTO) 0 % (4-12); NEUTROPHILS % (AUTO) 18 % (40-74); Platelet Count 22 bil/L (150-400)
--- NOTE | 2017-04-26 12:44 | DRSVH ---
PROCEDURE: CT CHEST WITH CONTRAST ([id number]) INDICATIONS: Evaluate treated tuberculosis, lymphocytosis TECHNIQUE: After the administration of intravenous contrast, 5 mm thick sections acquired from the pulmonary api iona to the posterior costophrenic angles. 7 mm thick coronal and sagittal MIP reformats were acquire d. For radiation dose reduction, the following was used: automated exposure control, adjustment of mA and/or kV according to patient size. COMPARISON: [facility], CT, CT ABD PELVIS W CON, 04/24/2017, 14:34. FINDINGS: Image quality: Excellent. Lungs and pleura: No acute air space opacities. No pleural effusions or pneumothorax. Central and peripheral airways are patent and normal in caliber. 6 mm right upper lobe nodule is present on series 3 image 13. There is no cavitation. Mediastinum: Heart size is normal. No pericardial effusion. No mediastinal or hilar adenopathy by size criteria. However, numerous subcentimeter aorticopulmonary lymph nodes are present. Thoracic ao rta is normal in size. Pulmonary artery is enlarged. Esophagus is normal in caliber. No hiatal her bernadette. Bones and chest wall: No suspicious bony lesions. No vertebral body compression fractures. Numerou s, bilateral axillary lymph nodes, the largest measuring 13 mm on the right. or supraclavicular claudia nopathy by size criteria. Thyroid gland is unremarkable. Abdomen: Visualized upper abdominal solid organs appear normal. Upper abdominal bowel loops are nor mal in caliber. IMPRESSION: 1. 6 mm right upper lobe nodule. It is nonspecific. Interval followup is recommended to document s tability or resolution after appropriate therapy. 2. Bilaterally axillary lymph nodes, with the largest measuring 13 mm. In addition, there are numer ous, subcentimeter lymph nodes in the aortopulmonary window. These may be reactive in nature. 3. Enlarged pulmonary artery suggestive of pulmonary artery hypertension. Dictated by: Lakshmi Leavitt M.D. on 04/26/2017 at 12:33 Approved by: Lakshmi Leavitt M.D. on 04/26/2017 at 12:42
--- NOTE | 2017-04-26 14:13 | NUR ---
Medical Lab Technician Communication/Activity Medical Lab Technician present for a.m. plate shop helper, assessment completed, questions answered, encouraged patient to tell RN know if she had additional questions so paring machine operator can be requested. Md & RN in room together able to interpret that Md/hospitalist is waiting to hear from hemotologist to discuss "plan", patient & spouse understood, RN to call paring machine operator for Md when the time comes. Request to remove tele to shower, patient showered, encouraged to ambulate outside of her room if she wishes.
--- NOTE | 2017-04-26 15:21 | PCM.PNMED ---
Subjective Date of Service Apr 26, 2017 Subjective no new complaints, lightheadedness improved. No more syncope Exam Vital Signs Vital Sign - Last Date Time Temp Pulse Resp B/P Pulse Ox O2 Delivery O2 Flow Rate FiO2 04/26/17 13:12 36.9 83 16 112/72 99 Room Air Intake and Output 04/25/17 04/25/17 04/26/17 Cumulative From/Thru 15:00 23:00 07:00 04/24/17 10:50 - 04/26/17 05:20 Intake Total 350 ml 800 ml 400 ml 2935 ml Output Total 350 ml 400 ml 420 ml 1170 ml Balance 0 ml 400 ml -20 ml 1765 ml Intake Oral 350 ml 800 ml 400 ml 1550 ml IV Total 1035 ml Packed Cells 350 ml Output Urine Total 350 ml 400 ml 420 ml 1170 ml Exam General: Awake and alert lying in hospital bed in no acute distress, well- developed, well-nourished, appropriately interactive. Georgian-speaking only, remote ice cream server used for interview and exam HEENT: Normocephalic, atraumatic. External ears without defect. Neck: Supple with full range of motion. No jugular venous distension. No bruits. no lymphadenopathy in cervical and axillary area. shooty lymph nodes reported on CT Cardiovascular: Regular rate and rhythm blowing systolic murmur Pulmonary: Clear to auscultation bilaterally with no crackles, wheezes, or rhonchi. Normal respiratory effort with no use of accessory muscles. Abdomen: Bowel tones present. Soft, nontender, nondistended. No hepatosplenomegaly or masses appreciated. Extremities: No clubbing, cyanosis, edema. Brachydactyly. Skin: Normal temperature, turgor, and texture, mild jaundice Neurological: Cranial nerves grossly intact. Psychiatric: Normal mood and affect. Alert and oriented to person, place, and time. IVs and Medications Medications Reviewed: Medications were reviewed in detail Lab and Diagnostics Result Diagram: 04/26/1782204/26/17822 X-Rays, CTs and MRIs . X-RAY CHEST ONE VIEW, PORTABLE IMPRESSION: Cardiomegaly as before, without acute cardiopulmonary disease. Dictated by: Kenny Wagner M.D. on 04/24/2017 CT BRAIN WITHOUT CONTRAST IMPRESSION: 1. No acute intracranial process. Dictated by: Lakshmi Leavitt M.D. on 04/24/2017 CT ABDOMEN AND PELVIS WITH CONTRAST IMPRESSION: 1. Gallstones as before, without CT findings of acute cholecystitis. 2. The appendix appears normal in morphology. 3. Dominant 4.6 cm nonhemorrhagic left ovarian cyst, presumably functional given the patient's age. If there is left adnexal region tenderness, consider 6- 12 week followup pelvic ultrasound to confirm expected size decrease or resolution. 4. Interval increased prominence of several normal sized bilateral iliac chain lymph nodes since 2006, of uncertain etiology. Early lymphoma may be a possibility. Dictated by: Kenny Wagner M.D. on 04/24/2017 PROCEDURE: CT CHEST WITH CONTRAST ([id number]) INDICATIONS: Evaluate treated tuberculosis, lymphocytosis IMPRESSION: 1. 6 mm right upper lobe nodule. It is nonspecific. Interval followup is recommended to document stability or resolution after appropriate therapy. 2. Bilaterally axillary lymph nodes, with the largest measuring 13 mm. In addition, there are numerous, subcentimeter lymph nodes in the aortopulmonary window. These may be reactive in nature. 3. Enlarged pulmonary artery suggestive of pulmonary artery hypertension. Dictated by: Lakshmi Leavitt M.D. on 04/26/2017 at 12:33 Cardiac Echo Impressions . Echocardiogram Report 11/23/2016 Interpretation Summary: Normal left ventricle size with ejection fraction 60-65%. Flattened septum is consistent with RV pressure/volume overload. Moderately dilated right ventricle with normal systolic function. Severely dilated right atrium. Mildly dilated left atrium. Mild mitral regurgitation. Mild tricuspid regurgitation. There is a large ASD that measures at 2.7 cm. with left to right ishunt. The right ventricular systolic pressure is estimated at 38 mmHg assuming a right atrial pressure of 3 mm Hg. Electronically signed by: Harjinder Adams 11/23/2016 ECHO 04/25/17 Interpretation Summary The left ventricle is normal in size. There is no ventricular septal defect visualized. The ejection fraction is estimated to be 55-60%. Flattened septum is consistent with RV pressure/volume overload. There is septal wall mild hypokinesis. Assessment of diastolic parameters indicates a relaxation abnormality of the left ventricle, consistent with normal filling pressures. The right ventricle is moderate to severely dilated. The right ventricular systolic function is normal. The right ventricular systolic pressure is estimated at least 63 mmHg assuming a right atrial pressure of 8 mm Hg. Compared to the prior echo exam, there has been an increase in the severity of pulmonary hypertension. The left atrium is severely dilated. The right atrium is severely dilated. The atrial septal defect is large. A secundum type atrial septal defect is present. Doppler evidence suggests a left to right interatrial shunt. Measuring 2.7 cm. There is mild to moderate tricuspid regurgitation. There is mild to moderate pulmonic regurgitation. Increased velocities through PV valve. Peak velocity is 2.37. Mean gradient is 15 mmHg. The aortic root is normal size. Severe pulmonary artery dilation. PA measuring 3.9cm. Slight increase compaired to previous study. The IVC is dilated (diameter is greater than 2.1 cm) yet it collapses greater than 50% with a sniff. This suggests a right atrial pressure of 8 mm Hg Assessment & Plan Ms. Castorena is a 31 female with past medical history of congenital heart murmur with ASD with [id number]-[id number] shunt who presents to the ED via EMS secondary to syncopal episode and thrombocytopenia. # Syncope due to symptomatic anemia present on admission. 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 Also has small LNs in axilla. Measuring 13mm on CT.there is also 6 mm right upper lobe nodule on CT chest . reactivation of TB causing hemolytic anemia and autoimmune thrombocytopenia unlikely but possible.ID consulted forinput -Axillary lymph nodes seem to be too small but will call surgery for bopsy if flowcytometry is unrevealing # suspected autoimmune Thrombocytopenia. Present on admission. Ongoing -platelets 20 Continue to monitor # suspected autoimmune hemolytic Anemia. Present on admission. Ongoing -consistent with hemolytic,high LDH and Tbili,haptoglobulin pending Transfused 1 unit PRBCs on 04/24 Continue to monitor # Leukocytosis, present on admission. Ongoing White count 20.4 on admit, repeat value 12.5 30 minutes later Afebrile, lactic acid normal, pro-calcitonin essentially negative Continue to monitor Patient Status: Patient was admitted under inpatient status with expected length of stay greater than two midnights due to severity of presenting symptoms , risk of adverse event, and complexity of treatment plan. discharge pending clinical course Resuscitation Status: CPR: Attempt Resuscitation Raul Padilla MD Apr 26, 2017 15:21
[2017-04-26] MEDS: Sodium Chloride LOK Flush 10 mL Syringe IVFLUSH SCH ×2 (16:48→20:08)
--- NOTE | 2017-04-26 16:58 | CONS ---
[address] [address] CONSULTATION REPORT PATIENT: NEREIDA CONTRERAS : 1985 MR#: [id number] ADMIT: 04/24/2017 JOB ID: [id number] DATE OF SERVICE: 04/26/2017 INFECTIOUS DISEASE CONSULTATION: I thank Dr. Padilla for this timely consult. REASON FOR CONSULTATION: Possible reactivated or reinfection tuberculosis. HISTORY OF PRESENT ILLNESS: The patient is an unfortunate 31-year-old mother of three who immigrated here from [place] about 13 years ago. In 2007 she was diagnosed and treated for pulmonary tuberculosis at the [facility]. She said she took seven pills a day for several months and was closely monitored by the [facility] Department and then told she was cured. At the onset of her pulmonary TB she had a productive cough, chest pain, fevers, chills, and night sweats. By the end of therapy she felt fine again and has not had any symptoms suggestive of recrudescent TB since that time. I have placed a call to the [facility] and am awaiting a call back to confirm that her therapy was finished as she indicates. In addition, she suffers from a very large ASD with [id number] shunt and is being monitored by the [facility]. These medical problems described above were relatively stable but then about two weeks ago she started getting very tired and also started to have some headaches and perhaps some lightheadedness. 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 This occurred just two days ago, on April 24. She was apparently out for a short period of time and has never had syncope before. Because of that she was brought to this facility and admitted. The patient states that up until the time of this passing out episode she had been feeling a bit weak and a bit tired for perhaps a couple of weeks but otherwise not much in the way of overt symptoms. She specifically denies any more fevers, chills, sweats, cough, hemoptysis, or chest pain, as she had suffered before when she had pulmonary TB. PAST MEDICAL HISTORY: 1. ASD with cardiomegaly and large shunt. 2. History of tuberculosis 2007. Appropriately treated by her report at [facility]. 3. Three pregnancies and three children, currently in school. SOCIAL HISTORY: The patient is a nonsmoker, nondrinker. Lives with her family. 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 FAMILY HISTORY: Positive for TB. Her father was diagnosed and treated for active pulmonary TB at about the same time she was. REVIEW OF SYSTEMS: The patient currently states she occasionally feels lightheaded but she has no headache. No fevers, no chills, no sweats, and no unexplained weight loss. No visual change, though her vision did turn sheldon as she had the syncopal episode a couple days ago, but it is now back to normal. No sore throat, trouble swallowing, cough, shortness of breath, or chest pain. No nausea, vomiting, diarrhea, dysuria, urgency, or frequency. She is not and, in fact, has been having absent menstrual periods now for several months. No swelling of the joints. No peripheral edema. No focal motor weakness. She has never had syncope before the episode the other day. Remainder of the review of systems negative, and note that I did the review of systems with the habilitation assistant. PHYSICAL EXAMINATION: Reveals an afebrile woman temp 36.9, pulse 83, respiratory rate 16, blood pressure 112/72. She is saturating very well on room air. She is in no acute distress. She is awake and alert, and cheerful. Head without trauma or temporal wasting. Eyes without conjunctivitis but her conjunctivae are rather pale. Her oral cavity is unremarkable. Her neck is without cervical nodes, but she does have supraclavicular nodes bilaterally which are small but firm. Her lungs are clear to auscultation posteriorly. Cardiac tones notable for what I would describe as between a 3/6 and 4/6 systolic murmur. This is a machinery type, continuous, very coarse, very loud murmur. She tells me she has had this since , and of course we know that this is due to an ASD being worked up by the [facility]. Her abdomen is soft and nontender, without organomegaly. She has no suprapubic fullness. No Andre catheter. No synovitis. No peripheral edema. She has good peripheral pulses. Neurologically she is intact. Good motor strength throughout. LABORATORIES: Include white count 17,000 when she was admitted. Her hematocrit is 25, platelets 22,000. She has a bizarre differential white count; 18% segs, 78% lymphs, and her sed rate is 49. Haptoglobin is 120, which is of course normal. D-dimer is negative. Creatinine 0.78. LFTs are normal. Bilirubin normal. CRP 0.5. Albumin 4.2. Urinalysis without white cells. IgM is 151, which is well within normal range. Cold agglutinins negative. Micro studies include blood cultures x2. I am really not certain why those were ordered in this afebrile patient but in any event they were negative. IMAGING: Was reviewed and includes a wide variety of studies. Chest CT was done which shows a small right upper lobe nodule. In addition there are bilateral axillary nodes and subcentimeter nodes in the AP window. An abdominal CT was also done. It shows gallstones with a left nonhemorrhagic ovarian cyst. Also noted are some small lymph nodes. A chest x-ray was reviewed which shows cardiomegaly but little else. In going back to our imaging from 2008 it is notable that a chest x-ray at that time showed bilateral infiltrates. There are subsequent films from that same year showing improvement. There is little in the way of interval films after 2008 until the prior chest x-ray available for review. IMPRESSION: It would appear this patient has some form of hematologic malignancy, and certainly CML would be the most likely candidate. She has a significant anemia in association with severe thrombocytopenia and an elevated white count which is almost exclusively lymphocytes. None of this sounds like recurrent tuberculosis. The patient had a very classic case of TB about a decade ago which was apparently aggressively and appropriately treated by our [facility] department with resolution. At this point I see no evidence for relapsing TB and do not think that is a serious diagnostic consideration at this point. RECOMMENDATIONS: 1. No specific diagnostic studies for TB are indicated. 2. I would not do QuantiFERON Gold or a skin test as these may be positive and we would not know what to do with the result. 3. Should the patient develop symptoms of pulmonary TB, we would of course collect additional sputa or do a BAL, but at this point none of that is indicated, and I agree that the main thing here is to workup what is probably an underlying hematologic malignancy in this very unfortunate woman who also has cardiomyopathy and a huge heart murmur related to her ASD. Thank you very much.
--- NOTE | 2017-04-26 17:39 | PCM.PNMED ---
Subjective Date of Service Apr 26, 2017 Subjective Oncology Progress Note Patient is a 31-year-old woman with a past history of tuberculosis who was referred for evaluation and management of leukocytosis with associated lymphocytosis, anemia, and severe thrombocytopenia. She was hospitalized following an episode of syncope and 10/10 pelvic pain. Today her CBC includes a white blood cell count of 17.1 with 78% lymphocytes, increased from 12.2 yesterday, hemoglobin of 8.9 improved from 8.4 yesterday, hematocrit of 25.6, and platelet count of 22. Other lab results include negative cold agglutinin and negative direct Cameron test. IgA, IgM, and IgG were normal. Total bilirubin was 1.2, haptoglobin was normal at 120 and LDH was minimally elevated at 228, decreasing the likelihood of a hemolytic anemia. Iron was high at 251 and TIBC was normal at 266. Today the patient has no complaints, and denies any further dizziness or syncope , nausea, vomiting, chest pain or abdominal pain. Exam Vital Signs Vital Sign - Last Date Time Temp Pulse Resp B/P Pulse Ox O2 Delivery O2 Flow Rate FiO2 04/26/17 13:12 36.9 83 16 112/72 99 Room Air Intake and Output 04/25/17 04/25/17 04/26/17 Cumulative From/Thru 15:00 23:00 07:00 04/24/17 10:50 - 04/26/17 05:20 Intake Total 350 ml 800 ml 400 ml 2935 ml Output Total 350 ml 400 ml 420 ml 1170 ml Balance 0 ml 400 ml -20 ml 1765 ml Intake Oral 350 ml 800 ml 400 ml 1550 ml IV Total 1035 ml Packed Cells 350 ml Output Urine Total 350 ml 400 ml 420 ml 1170 ml Exam General: Alert, Oriented X3, Cooperative, No acute distress Head: Normocephalic, atraumatic. External ears normal. Eyes: PERRLA, EOMI. Anicteric sclerae. Mouth: Mouth normal, Mucous membranes moist/pink Neck: Neck supple with full range of motion. Chest& Lungs: Clear to auscultation bilaterally with no crackles, wheezes, or rhonchi. Cardiovascular: Regular rate/rhythm, Normal S1, Normal S2, No murmurs/rubs/ gallops Abdomen: Non-tender, Non-distended, No masses, Normoactive bowel tones, Soft Musculoskeletal: Normal range of motion Extremities: No cyanosis/clubbing/edema bilaterally Neurological: Grossly neurologically intact. Normal speech Lab and Diagnostics Result Diagram: 04/26/1782204/26/17822 X-Rays, CTs and MRIs . X-RAY CHEST ONE VIEW, PORTABLE IMPRESSION: Cardiomegaly as before, without acute cardiopulmonary disease. Dictated by: Kenny Wagner M.D. on 04/24/2017 CT BRAIN WITHOUT CONTRAST IMPRESSION: 1. No acute intracranial process. Dictated by: Lakshmi Leavitt M.D. on 04/24/2017 CT ABDOMEN AND PELVIS WITH CONTRAST IMPRESSION: 1. Gallstones as before, without CT findings of acute cholecystitis. 2. The appendix appears normal in morphology. 3. Dominant 4.6 cm nonhemorrhagic left ovarian cyst, presumably functional given the patient's age. If there is left adnexal region tenderness, consider 6- 12 week followup pelvic ultrasound to confirm expected size decrease or resolution. 4. Interval increased prominence of several normal sized bilateral iliac chain lymph nodes since 2006, of uncertain etiology. Early lymphoma may be a possibility. Dictated by: Kenny Wagner M.D. on 04/24/2017 PROCEDURE: CT CHEST WITH CONTRAST ([id number]) INDICATIONS: Evaluate treated tuberculosis, lymphocytosis IMPRESSION: 1. 6 mm right upper lobe nodule. It is nonspecific. Interval followup is recommended to document stability or resolution after appropriate therapy. 2. Bilaterally axillary lymph nodes, with the largest measuring 13 mm. In addition, there are numerous, subcentimeter lymph nodes in the aortopulmonary window. These may be reactive in nature. 3. Enlarged pulmonary artery suggestive of pulmonary artery hypertension. Dictated by: Lakshmi Leavitt M.D. on 04/26/2017 at 12:33 Cardiac Echo Impressions . Echocardiogram Report 11/23/2016 Interpretation Summary: Normal left ventricle size with ejection fraction 60-65%. Flattened septum is consistent with RV pressure/volume overload. Moderately dilated right ventricle with normal systolic function. Severely dilated right atrium. Mildly dilated left atrium. Mild mitral regurgitation. Mild tricuspid regurgitation. There is a large ASD that measures at 2.7 cm. with left to right ishunt. The right ventricular systolic pressure is estimated at 38 mmHg assuming a right atrial pressure of 3 mm Hg. Electronically signed by: Harjinder Adams 11/23/2016 ECHO 04/25/17 Interpretation Summary The left ventricle is normal in size. There is no ventricular septal defect visualized. The ejection fraction is estimated to be 55-60%. Flattened septum is consistent with RV pressure/volume overload. There is septal wall mild hypokinesis. Assessment of diastolic parameters indicates a relaxation abnormality of the left ventricle, consistent with normal filling pressures. The right ventricle is moderate to severely dilated. The right ventricular systolic function is normal. The right ventricular systolic pressure is estimated at least 63 mmHg assuming a right atrial pressure of 8 mm Hg. Compared to the prior echo exam, there has been an increase in the severity of pulmonary hypertension. The left atrium is severely dilated. The right atrium is severely dilated. The atrial septal defect is large. A secundum type atrial septal defect is present. Doppler evidence suggests a left to right interatrial shunt. Measuring 2.7 cm. There is mild to moderate tricuspid regurgitation. There is mild to moderate pulmonic regurgitation. Increased velocities through PV valve. Peak velocity is 2.37. Mean gradient is 15 mmHg. The aortic root is normal size. Severe pulmonary artery dilation. PA measuring 3.9cm. Slight increase compaired to previous study. The IVC is dilated (diameter is greater than 2.1 cm) yet it collapses greater than 50% with a sniff. This suggests a right atrial pressure of 8 mm Hg Assessment & Plan Ms. Castorena is a 31-year-old female with history of tuberculosis who presents with lymphocytic leukocytosis, severe anemia, and severe thrombocytopenia after an episode of syncope. Lymphocytic leukocytosis with severe anemia and profound thrombocytopenia - Patient has been afebrile for the entire hospital stay, and has had no signs or symptoms of infection, including a negative procalcitonin and lactic acid. Chest CT shows a 6 mm right upper lobe nodule without any signs of active infection. Tuberculosis is unlikely at this point, and the case was discussed with Dr. Lara who agrees. Globulin levels, including IgA, IgM, and IgG were normal. At this point, there is high suspicion for chronic lymphocytic leukemia , and flow cytometry is currently pending. - Await flow cytometry results Severe anemia - In terms of her anemia, markers of hemolytic anemia were negative including a negative Cameron, negative cold agglutinin, normal haptoglobin, and normal total bilirubin, while LDH was only minimally elevated. Iron studies were normal, so iron deficiency anemia is unlikely at this point. Consider red cell aplasia given her low reticulocyte count and normocytic anemia, which has been known to be associated with CLL. Severe thrombocytopenia - She continues to be severely thrombocytopenic, possibly secondary to an autoimmune thrombocytopenia. - Recommend starting high-dose steroid treatment. Resuscitation Status: CPR: Attempt Resuscitation Jose Coles Apr 26, 2017 16:31
[2017-04-27] VITALS (7 sets, daily range): BP systolic 104–117; BP diastolic 66–75; PULSE 75–84; RESP 16–20; O2SAT 98–100
--- NOTE | 2017-04-27 01:06 | NUR ---
Comfortable Pt is asked (in Thai) if she has pain, comfortable temperature, needs for food or beverages, and is informed at use of PO medication and IV flush; Family in room and interprets other information as patient requests, comes in to hallway and asks for items as needed. Pt LS clear, pulse is stable although near tachy. VS checked Q 4 and rounding completed. Care continues
--- NOTE | 2017-04-27 08:38 | NUR ---
Social Work Note: Initial Assessment Data& Assessment: EMR reviewed. VISION TEACHER met with pt and pt family at bedside with the assistance of the virtual faro dealer to discuss discharge planning, VISION TEACHER role explained and discharge planning packet provided. Delmi Castorena is a 31 year old female admitted on 04/24/2017 for syncope and symptomatic anemia. Pt is not eligible for insurance coverage, [place] Order Control Clerk Blood Bank application provided. Pt sees Kathy Wolf MD for primary care at [facility]. Pt lives in [place] with her family and is independent at baseline with all ADL's. She does not use any DME at baseline. Pt does not have HH or SNF hx. Pt does not have LTC insurance or VA benefits. Pt to transport her home when medically ready. Pt and pt family denies any needs at this time. MD does not identify any concerns for pt capacity for self care at this time. VISION TEACHER to continue to follow if any needs or MD orders arise. Plan: Anticipated discharge home via POV when medically ready. VISION TEACHER to continue to follow if any needs or MD orders arise. GRIFFIN Carpio Addendum: 04/27/17 at 0842 by LARISSA NGO Amended: Links added.
[2017-04-27] MEDS: Sodium Chloride LOK Flush 10 mL Syringe IVFLUSH SCH ×2 (09:18→17:07)
--- NOTE | 2017-04-27 16:13 | PCM.PNMED ---
Subjective Date of Service Apr 27, 2017 Subjective pt started having Rt neck pain with nodule palpated, denied otherwise rash, bruises, signs of GIB Exam Vital Signs Vital Sign - Last Date Time Temp Pulse Resp B/P Pulse Ox O2 Delivery O2 Flow Rate FiO2 04/27/17 12:42 37.0 77 16 110/71 100 Room Air Intake and Output 04/26/17 04/26/17 04/27/17 Cumulative From/Thru 15:00 23:00 07:00 04/24/17 10:50 - 04/27/17 06:24 Intake Total 650 ml 600 ml 4185 ml Output Total 900 ml 950 ml 3020 ml Balance -250 ml -350 ml 1165 ml Intake Oral 650 ml 600 ml 2800 ml IV Total 1035 ml Packed Cells 350 ml Output Urine Total 900 ml 950 ml 3020 ml # Bowel Movements 1 1 2 Exam Elevated with dark skin, no bruises throughout NAD, comfortably laying down on the bed no JVD, MMM, LAD on posterior cervical, Supraclavicular, no LAD in bilat Axilla RRR, nl s1, s2 no mrg CTAB, no w,c S,ND,NT,normoactive BS+ warm, no edema, pulses 2/2 IVs and Medications Medications Reviewed: Medications were reviewed in detail Lab and Diagnostics Result Diagram: 04/26/1782204/26/17822 X-Rays, CTs and MRIs . X-RAY CHEST ONE VIEW, PORTABLE IMPRESSION: Cardiomegaly as before, without acute cardiopulmonary disease. Dictated by: Kenny Wagner M.D. on 04/24/2017 CT BRAIN WITHOUT CONTRAST IMPRESSION: 1. No acute intracranial process. Dictated by: Lakshmi Leavitt M.D. on 04/24/2017 CT ABDOMEN AND PELVIS WITH CONTRAST IMPRESSION: 1. Gallstones as before, without CT findings of acute cholecystitis. 2. The appendix appears normal in morphology. 3. Dominant 4.6 cm nonhemorrhagic left ovarian cyst, presumably functional given the patient's age. If there is left adnexal region tenderness, consider 6- 12 week followup pelvic ultrasound to confirm expected size decrease or resolution. 4. Interval increased prominence of several normal sized bilateral iliac chain lymph nodes since 2006, of uncertain etiology. Early lymphoma may be a possibility. Dictated by: Kenny Wagner M.D. on 04/24/2017 PROCEDURE: CT CHEST WITH CONTRAST ([id number]) INDICATIONS: Evaluate treated tuberculosis, lymphocytosis IMPRESSION: 1. 6 mm right upper lobe nodule. It is nonspecific. Interval followup is recommended to document stability or resolution after appropriate therapy. 2. Bilaterally axillary lymph nodes, with the largest measuring 13 mm. In addition, there are numerous, subcentimeter lymph nodes in the aortopulmonary window. These may be reactive in nature. 3. Enlarged pulmonary artery suggestive of pulmonary artery hypertension. Dictated by: Lakshmi Leavitt M.D. on 04/26/2017 at 12:33 Cardiac Echo Impressions . Echocardiogram Report 11/23/2016 Interpretation Summary: Normal left ventricle size with ejection fraction 60-65%. Flattened septum is consistent with RV pressure/volume overload. Moderately dilated right ventricle with normal systolic function. Severely dilated right atrium. Mildly dilated left atrium. Mild mitral regurgitation. Mild tricuspid regurgitation. There is a large ASD that measures at 2.7 cm. with left to right ishunt. The right ventricular systolic pressure is estimated at 38 mmHg assuming a right atrial pressure of 3 mm Hg. Electronically signed by: Harjinder Adams 11/23/2016 ECHO 04/25/17 Interpretation Summary The left ventricle is normal in size. There is no ventricular septal defect visualized. The ejection fraction is estimated to be 55-60%. Flattened septum is consistent with RV pressure/volume overload. There is septal wall mild hypokinesis. Assessment of diastolic parameters indicates a relaxation abnormality of the left ventricle, consistent with normal filling pressures. The right ventricle is moderate to severely dilated. The right ventricular systolic function is normal. The right ventricular systolic pressure is estimated at least 63 mmHg assuming a right atrial pressure of 8 mm Hg. Compared to the prior echo exam, there has been an increase in the severity of pulmonary hypertension. The left atrium is severely dilated. The right atrium is severely dilated. The atrial septal defect is large. A secundum type atrial septal defect is present. Doppler evidence suggests a left to right interatrial shunt. Measuring 2.7 cm. There is mild to moderate tricuspid regurgitation. There is mild to moderate pulmonic regurgitation. Increased velocities through PV valve. Peak velocity is 2.37. Mean gradient is 15 mmHg. The aortic root is normal size. Severe pulmonary artery dilation. PA measuring 3.9cm. Slight increase compaired to previous study. The IVC is dilated (diameter is greater than 2.1 cm) yet it collapses greater than 50% with a sniff. This suggests a right atrial pressure of 8 mm Hg Assessment & Plan Ms. Castorena is a 31 female with past medical history of congenital heart murmur with ASD with [id number] shunt who presents to the ED via EMS secondary to syncopal episode and thrombocytopenia. 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 Initially suspected possible TB reactivation. However, currently no signs of active TB per ID, no test available to verify. Cold agglutinin negative, IgM WNL , haptoglobin, retic WNL. ot was transfused 1 unit PRBCs on 04/24 -wbc, h/h, plt remained unchanged, pt newly developed cervical LAD -appreciate hematology followup, unclear pt can tolerate more invasive study given profound thrombocytopenia -awaits flow cytometry -consider steroid, however, labs not consistent to autoimmune hemolytic anemia, -will consider Axillary lymph nodes biopsy chronic, stable hx of TB, POA, Patient was treated for tuberculosis in 2008.CT chest and abd/ pelvis show small lymph nodes seen in abdomen and chest paraortic areas. Also has small LNs in axilla. Measuring 13mm on CT.there is also 6 mm right upper lobe nodule on CT chest . reactivation of TB causing hemolytic anemia and autoimmune thrombocytopenia unlikely but possible. # Syncope due to symptomatic anemia present on admission. Possibly due to symptomatic anemiam EKG shows normal sinus rhythm HR 89, no orthostatic drop. Echo from 12/06/2016 as above.repeat echo today shows worsening pulmonary HTN, pt remained asymptomatic. Patient Status: 2-3more days until h/h, plt more stable, Resuscitation Status: CPR: Attempt Resuscitation Time spent 35min Delfin Selby MD Apr 27, 2017 16:12
--- NOTE | 2017-04-27 17:11 | NUR ---
Hygiene/fatigue Pt has rested quietly through out the day, no complains of increased pain, altered vision or syncopal episodes. Pt was able to get up to shower however did report increased fatigue after. Pt is eating dinner with family at bedside. Call light in reach, will continue to monitor.
[2017-04-28] VITALS (9 sets, daily range): BP systolic 103–113; BP diastolic 63–74; PULSE 75–88; RESP 18; O2SAT 98–100
[2017-04-28] MEDS: Sodium Chloride LOK Flush 10 mL Syringe IVFLUSH SCH ×3 (00:30→17:15)
--- NOTE | 2017-04-28 05:36 | NUR ---
NOC Activity Pt has been alert and oriented. Pleasant and cooperative with care. Pt is hopeful and is aware of the current plan for her care. Denies chest pain, sob, n/v or abd discomfort. Pt's VSS and has been afebrile overnight. Intentional hourly rounding done.
[2017-04-28 07:15] LABS: Mean Corpuscular Hemoglobin 29.8 pg (27.0-35.0); Mean Corpuscular Volume 86.5 fL (81-100)
[2017-04-28 07:57] LABS: Magnesium 2.1 mg/dL (1.6-2.6)
[2017-04-28 08:05] LABS: NEUTROPHILS % (AUTO) 14 % (40-74); Platelet Count 21 bil/L (150-400)
[2017-04-28 08:06] LABS: BASOPHILS % (AUTO) 0 % (0-3); EOSINOPHILS % (AUTO) 1 % (0-5); MONOCYTES % (AUTO) 0 % (4-12)
--- NOTE | 2017-04-28 10:45 | PCM.PNMED ---
Subjective Date of Service Apr 28, 2017 Subjective pt remained stable, still has Rt neck pain, no new site of pain, denied rash, bruises, GIB Exam Vital Signs Vital Sign - Last Date Time Temp Pulse Resp B/P Pulse Ox O2 Delivery O2 Flow Rate FiO2 04/28/17 08:21 36.4 86 18 103/63 98 Room Air Intake and Output 04/27/17 04/27/17 04/28/17 Cumulative From/Thru 15:00 23:00 07:00 04/24/17 10:50 - 04/28/17 06:27 Intake Total 600 ml 650 ml 5435 ml Output Total 200 ml 3220 ml Balance 400 ml 650 ml 2215 ml Intake Oral 600 ml 650 ml 4050 ml IV Total 1035 ml Packed Cells 350 ml Output Urine Total 200 ml 3220 ml # Voids 2 3 5 # Bowel Movements 0 2 Exam pleasant, young lady, dark skin, no bruises throughout NAD, comfortably laying down on the bed no JVD, MMM, LAD on posterior cervical, Supraclavicular, no LAD in bilat Axilla RRR, nl s1, s2 no mrg CTAB, no w,c S,ND,NT,normoactive BS+ warm, no edema, pulses 2/2 IVs and Medications Medications Reviewed: Medications were reviewed in detail Lab and Diagnostics Result Diagram: 04/28/1763404/28/17634 X-Rays, CTs and MRIs . X-RAY CHEST ONE VIEW, PORTABLE IMPRESSION: Cardiomegaly as before, without acute cardiopulmonary disease. Dictated by: Kenny Wagner M.D. on 04/24/2017 CT BRAIN WITHOUT CONTRAST IMPRESSION: 1. No acute intracranial process. Dictated by: Lakshmi Leavitt M.D. on 04/24/2017 CT ABDOMEN AND PELVIS WITH CONTRAST IMPRESSION: 1. Gallstones as before, without CT findings of acute cholecystitis. 2. The appendix appears normal in morphology. 3. Dominant 4.6 cm nonhemorrhagic left ovarian cyst, presumably functional given the patient's age. If there is left adnexal region tenderness, consider 6- 12 week followup pelvic ultrasound to confirm expected size decrease or resolution. 4. Interval increased prominence of several normal sized bilateral iliac chain lymph nodes since 2006, of uncertain etiology. Early lymphoma may be a possibility. Dictated by: Kenny Wagner M.D. on 04/24/2017 PROCEDURE: CT CHEST WITH CONTRAST ([id number]) INDICATIONS: Evaluate treated tuberculosis, lymphocytosis IMPRESSION: 1. 6 mm right upper lobe nodule. It is nonspecific. Interval followup is recommended to document stability or resolution after appropriate therapy. 2. Bilaterally axillary lymph nodes, with the largest measuring 13 mm. In addition, there are numerous, subcentimeter lymph nodes in the aortopulmonary window. These may be reactive in nature. 3. Enlarged pulmonary artery suggestive of pulmonary artery hypertension. Dictated by: Lakshmi Leavitt M.D. on 04/26/2017 at 12:33 Cardiac Echo Impressions . Echocardiogram Report 11/23/2016 Interpretation Summary: Normal left ventricle size with ejection fraction 60-65%. Flattened septum is consistent with RV pressure/volume overload. Moderately dilated right ventricle with normal systolic function. Severely dilated right atrium. Mildly dilated left atrium. Mild mitral regurgitation. Mild tricuspid regurgitation. There is a large ASD that measures at 2.7 cm. with left to right ishunt. The right ventricular systolic pressure is estimated at 38 mmHg assuming a right atrial pressure of 3 mm Hg. Electronically signed by: Harjinder Adams 11/23/2016 ECHO 04/25/17 Interpretation Summary The left ventricle is normal in size. There is no ventricular septal defect visualized. The ejection fraction is estimated to be 55-60%. Flattened septum is consistent with RV pressure/volume overload. There is septal wall mild hypokinesis. Assessment of diastolic parameters indicates a relaxation abnormality of the left ventricle, consistent with normal filling pressures. The right ventricle is moderate to severely dilated. The right ventricular systolic function is normal. The right ventricular systolic pressure is estimated at least 63 mmHg assuming a right atrial pressure of 8 mm Hg. Compared to the prior echo exam, there has been an increase in the severity of pulmonary hypertension. The left atrium is severely dilated. The right atrium is severely dilated. The atrial septal defect is large. A secundum type atrial septal defect is present. Doppler evidence suggests a left to right interatrial shunt. Measuring 2.7 cm. There is mild to moderate tricuspid regurgitation. There is mild to moderate pulmonic regurgitation. Increased velocities through PV valve. Peak velocity is 2.37. Mean gradient is 15 mmHg. The aortic root is normal size. Severe pulmonary artery dilation. PA measuring 3.9cm. Slight increase compaired to previous study. The IVC is dilated (diameter is greater than 2.1 cm) yet it collapses greater than 50% with a sniff. This suggests a right atrial pressure of 8 mm Hg Assessment & Plan Ms. Castorena is a 31 female with past medical history of congenital heart murmur with ASD with relu-[id number] shunt who presents to the ED via EMS secondary to syncopal episode and thrombocytopenia. 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 Initially suspected possible TB reactivation. However, currently no signs of active TB per ID, no test available to verify. Cold agglutinin negative, IgM WNL , haptoglobin, retic WNL. ot was transfused 1 unit PRBCs on 04/24 -wbc, h/h, plt remained unchanged, although lymph% is worsening, moderate aypitcal lymphocytes seem. pt has persistent cervical LAD -appreciate hematology followup, unclear pt can tolerate more invasive study given profound thrombocytopenia -awaits flow cytometry -consider steroid, however, labs not consistent to autoimmune hemolytic anemia, -will consider Axillary lymph nodes biopsy chronic, stable hx of TB, POA, Patient was treated for tuberculosis in 2008.CT chest and abd/ pelvis show small lymph nodes seen in abdomen and chest paraortic areas. Also has small LNs in axilla. Measuring 13mm on CT.there is also 6 mm right upper lobe nodule on CT chest . reactivation of TB causing hemolytic anemia and autoimmune thrombocytopenia unlikely but possible. # Syncope due to symptomatic anemia present on admission. Possibly due to symptomatic anemiam EKG shows normal sinus rhythm HR 89, no orthostatic drop. Echo from 12/06/2016 as above.repeat echo today shows worsening pulmonary HTN, pt remained asymptomatic. Patient Status: 2-3more days until h/h, plt more stable, Resuscitation Status: CPR: Attempt Resuscitation Time spent 35min Delfin Selby MD Apr 28, 2017 10:45
--- NOTE | 2017-04-28 15:26 | NUR ---
PLT/BLOOD Patient platelets 21, Hgb 8, Hct 25. WBC 15.8. Blood work pending for CLL. Patient and family made aware via veterinarian helper about pending blood work and low platelets and danger of bleeding. Patient denies pain shortness of breath, and nausea. Eating and taking adequate oral fluids. Addendum: 04/28/17 at 1843 by RAKESH ARRINGTON RN APPOINTMENT Patient had appointment Saturday for cardiac consult phone number ([phone]). Number provided by of patient, nurse call but no one answered and no message machine.
[2017-04-29] VITALS (7 sets, daily range): BP systolic 103–111; BP diastolic 66–71; PULSE 74–80; RESP 16; O2SAT 97–100
[2017-04-29] MEDS: Sodium Chloride LOK Flush 10 mL Syringe IVFLUSH SCH ×4 (00:30→21:02)
--- NOTE | 2017-04-29 05:19 | NUR ---
NOC Activity Pt has been pleasant and cooperative with care. Denies chest pain, sob, n/v or abd discomfort. HS med administered as scheduled. Telemetry monitoring SR 70.s Pt's VSS and has been afebrile overnight.
[2017-04-29 07:57] LABS: Mean Corpuscular Hemoglobin 29.6 pg (27.0-35.0); Mean Corpuscular Volume 86.9 fL (81-100)
[2017-04-29 08:56] LABS: Platelet Count 23 bil/L (150-400)
[2017-04-29 08:57] LABS: BASOPHILS % (AUTO) 0 % (0-3); EOSINOPHILS % (AUTO) 2 % (0-5); MONOCYTES % (AUTO) 3 % (4-12); NEUTROPHILS % (AUTO) 21 % (40-74)
--- NOTE | 2017-04-29 09:26 | PROG NOTE ---
[address] [address] PROGRESS NOTE PATIENT: NEREIDA CONTRERAS : 1985 MR#: [id number] ADMIT: 04/24/2017 JOB ID: [id number] DATE: 04/29/2017 REASON FOR FOLLOWUP: History of prior active TB in a patient who now is being evaluated for hematologic malignancy. INTERVAL HISTORY: The patient reports no fevers, chills, or sweats. No significant headache, though she does occasionally have a twinge. No cough, shortness of breath, or GI symptoms. PHYSICAL EXAMINATION: Reveals an afebrile woman. Temp 36.6, pulse 74, respiratory rate 16, blood pressure 106/70 saturating 100% on room air. She is in no acute distress. Examination of the head no trauma. Eyes with pale conjunctivae, but no abnormalities. Oral cavity without thrush or hairy leukoplakia. The lungs are clear posteriorly. Cardiac tones regular rate and rhythm. The patient's abdomen is benign. No skin rash noted. LABORATORIES: Include white count pending today. Yesterday was 16,000. Again with only 21,000 platelets, 14% neutrophils, 85% lymphs. Creatinine 0.98. ALT is 40. Her LFTs are normal. Albumin 3.9. CRP 0.5. Cold agglutinin titers negative. Blood cultures negative. IMAGING: Includes the chest CT that was just reviewed and discussed on the . It shows pulmonary hypertension, a 6 mm right upper lobe nodule, and bilateral axillary nodes. The abdominal CT revealed gallstones and a hemorrhagic left ovarian cyst and increasing size of several prominent bilateral iliac chain nodes. Brain CT was negative. Chest x-ray with cardiomegaly. IMPRESSION: This is a complicated case of a woman who reports that she was treated for pulmonary tuberculosis in 2007 at the [facility]. She tells me she received four drug therapy and that she tolerated this quite well. She had classic symptoms of pulmonary TB at the onset of this and by the end of it she said she was cured. She now is admitted for workup of hematologic process, fatigue, and cytopenias, but has not had any recrudescent fevers, chills, cough, or symptoms that were consistent with her prior TB. I called the [facility] on Saturday, and they told me there were no records dating back that far. I was somewhat surprised they do not at least keep a single sheet to prove that satisfactory treatment TB was completed, but they say there is no records of this patient being treated at all and that is not surprising given that it was 9 or 10 years ago. IMPRESSION: I see no evidence for active tuberculosis in this patient, and I do not think the reasons to be unduly concerned about recrudescent tuberculosis. Nonspecific test like QuantiFERON Gold will not be helpful. If the patient does undergo a lymph node biopsy that may be helpful, but I think it is highly unlikely that she has active tuberculosis. RECOMMENDATIONS: 1. No TB drugs. 2. ID will go ahead and sign off at this time, but do not hesitate to call if there is additional questions or issues about this patient, especially as we obtain some more pathologic material.
--- NOTE | 2017-04-29 12:14 | PCM.PNMED ---
Subjective Date of Service Apr 29, 2017 Subjective pt still c/o neck pain from adenopathy, otherwise denied dizziness, no rash, bruises, GIB awaits Dr.Mathey levi today CBC grossly unchanged Exam Vital Signs Vital Sign - Last Date Time Temp Pulse Resp B/P Pulse Ox O2 Delivery O2 Flow Rate FiO2 04/29/17 10:00 36.6 77 16 107/68 98 Room Air Intake and Output 04/28/17 04/28/17 04/29/17 Cumulative From/Thru 15:00 23:00 07:00 04/24/17 10:50 - 04/28/17 18:08 Intake Total 720 ml 6155 ml Output Total 3220 ml Balance 720 ml 2935 ml Intake Oral 720 ml 4770 ml IV Total 1035 ml Packed Cells 350 ml Output Urine Total 3220 ml # Voids 2 7 # Bowel Movements 0 2 Exam pleasant, young lady, dark skin, no bruises throughout NAD, comfortably laying down on the bed no JVD, MMM, LAD on posterior cervical, Supraclavicular, no LAD in bilat Axilla RRR, nl s1, s2 no mrg CTAB, no w,c S,ND,NT,normoactive BS+ warm, no edema, pulses 2/2 IVs and Medications Medications Reviewed: Medications were reviewed in detail Lab and Diagnostics Result Diagram: 04/29/17 0730 04/28/17 0635 X-Rays, CTs and MRIs . X-RAY CHEST ONE VIEW, PORTABLE IMPRESSION: Cardiomegaly as before, without acute cardiopulmonary disease. Dictated by: Kenny Wagner M.D. on 04/24/2017 CT BRAIN WITHOUT CONTRAST IMPRESSION: 1. No acute intracranial process. Dictated by: Lakshmi Leaivtt M.D. on 04/24/2017 CT ABDOMEN AND PELVIS WITH CONTRAST IMPRESSION: 1. Gallstones as before, without CT findings of acute cholecystitis. 2. The appendix appears normal in morphology. 3. Dominant 4.6 cm nonhemorrhagic left ovarian cyst, presumably functional given the patient's age. If there is left adnexal region tenderness, consider 6- 12 week followup pelvic ultrasound to confirm expected size decrease or resolution. 4. Interval increased prominence of several normal sized bilateral iliac chain lymph nodes since 2006, of uncertain etiology. Early lymphoma may be a possibility. Dictated by: Kenny Wagner M.D. on 04/24/2017 PROCEDURE: CT CHEST WITH CONTRAST ([id number]) INDICATIONS: Evaluate treated tuberculosis, lymphocytosis IMPRESSION: 1. 6 mm right upper lobe nodule. It is nonspecific. Interval followup is recommended to document stability or resolution after appropriate therapy. 2. Bilaterally axillary lymph nodes, with the largest measuring 13 mm. In addition, there are numerous, subcentimeter lymph nodes in the aortopulmonary window. These may be reactive in nature. 3. Enlarged pulmonary artery suggestive of pulmonary artery hypertension. Dictated by: Lakshmi Leavitt M.D. on 04/26/2017 at 12:33 Cardiac Echo Impressions . Echocardiogram Report 11/23/2016 Interpretation Summary: Normal left ventricle size with ejection fraction 60-65%. Flattened septum is consistent with RV pressure/volume overload. Moderately dilated right ventricle with normal systolic function. Severely dilated right atrium. Mildly dilated left atrium. Mild mitral regurgitation. Mild tricuspid regurgitation. There is a large ASD that measures at 2.7 cm. with left to right ishunt. The right ventricular systolic pressure is estimated at 38 mmHg assuming a right atrial pressure of 3 mm Hg. Electronically signed by: Harjinder Adams 11/23/2016 ECHO 04/25/17 Interpretation Summary The left ventricle is normal in size. There is no ventricular septal defect visualized. The ejection fraction is estimated to be 55-60%. Flattened septum is consistent with RV pressure/volume overload. There is septal wall mild hypokinesis. Assessment of diastolic parameters indicates a relaxation abnormality of the left ventricle, consistent with normal filling pressures. The right ventricle is moderate to severely dilated. The right ventricular systolic function is normal. The right ventricular systolic pressure is estimated at least 63 mmHg assuming a right atrial pressure of 8 mm Hg. Compared to the prior echo exam, there has been an increase in the severity of pulmonary hypertension. The left atrium is severely dilated. The right atrium is severely dilated. The atrial septal defect is large. A secundum type atrial septal defect is present. Doppler evidence suggests a left to right interatrial shunt. Measuring 2.7 cm. There is mild to moderate tricuspid regurgitation. There is mild to moderate pulmonic regurgitation. Increased velocities through PV valve. Peak velocity is 2.37. Mean gradient is 15 mmHg. The aortic root is normal size. Severe pulmonary artery dilation. PA measuring 3.9cm. Slight increase compaired to previous study. The IVC is dilated (diameter is greater than 2.1 cm) yet it collapses greater than 50% with a sniff. This suggests a right atrial pressure of 8 mm Hg Assessment & Plan Ms. Castorena is a 31 female with past medical history of congenital heart murmur with ASD with [id number] shunt who presents to the ED via EMS secondary to syncopal episode and thrombocytopenia. 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 Initially suspected possible TB reactivation. However, currently no signs of active TB per ID, no test available to verify. Cold agglutinin negative, IgM WNL , haptoglobin, retic WNL. ot was transfused 1 unit PRBCs on 04/24 -wbc, h/h, plt remained unchanged, although lymph% is worsening, moderate aypitcal lymphocytes seem. pt has persistent cervical LAD -appreciate hematology followup, unclear pt can tolerate more invasive study given profound thrombocytopenia -awaits flow cytometry -consider steroid, however, labs not consistent to autoimmune hemolytic anemia, -will consider Axillary lymph nodes biopsy chronic, stable hx of TB, POA, Patient was treated for tuberculosis in 2008.CT chest and abd/ pelvis show small lymph nodes seen in abdomen and chest paraortic areas. Also has small LNs in axilla. Measuring 13mm on CT.there is also 6 mm right upper lobe nodule on CT chest . reactivation of TB causing hemolytic anemia and autoimmune thrombocytopenia unlikely but possible. # Syncope due to symptomatic anemia present on admission. Possibly due to symptomatic anemiam EKG shows normal sinus rhythm HR 89, no orthostatic drop. Echo from 12/06/2016 as above.repeat echo today shows worsening pulmonary HTN, pt remained asymptomatic. Patient Status:pending, pt may require acute tx in house. VTE Mechanical Devices: Venous Foot Pump Resuscitation Status: CPR: Attempt Resuscitation Time spent 35min Delfin Selby MD Apr 29, 2017 12:14
--- NOTE | 2017-04-29 15:22 | NUR ---
Social Work: Continued Discharge Planning Data & Assessment: EMR reviewed. Patient is on day 5 of hospitalization for syncope and symptomatic anemia per H&P. Patient is from home with family. Patient was discussed in morning rounds. Patient is not medically stable for discharge at this time. Patient will remain in hospital a few more days until H/H and platelets are more stable. SW will continue to follow for needs. Plan: Patient will discharge home with family when medically stable. SW will continue to follow for needs. GRIFFIN Lopez
--- NOTE | 2017-04-29 15:31 | NUR ---
Interpretation Face to face interpretation provided. Pt has denied pain all shift. Call made to pts [employer] at this AM to inform of pt missing 0800 appt [phone] at bedside most shift. Dr Rodgers in to assess pt.
[2017-04-30] VITALS (7 sets, daily range): BP systolic 98–105; BP diastolic 62–73; PULSE 73–85; RESP 16; O2SAT 99–100
--- NOTE | 2017-04-30 04:27 | NUR ---
Uneventful Night: Pt had an uneventful night, no c/o pain, chest pain or SOB. Pt slept most of the night, pleasant and cooperative with care.
[2017-04-30 06:34] LABS: Mean Corpuscular Hemoglobin 29.1 pg (27.0-35.0); Mean Corpuscular Volume 86.1 fL (81-100)
[2017-04-30] MEDS: Sodium Chloride LOK Flush 10 mL Syringe IVFLUSH SCH ×3 (07:44→19:54)
--- NOTE | 2017-04-30 08:13 | PROG NOTE ---
[address] [address] PROGRESS NOTE PATIENT: NEREIDA CONTRERAS : 1985 MR#: [id number] ADMIT: 04/24/2017 JOB ID: [id number] DATE: 04/29/2017 SUBJECTIVE: The patient is a 31-year-old woman hospitalized with lymphocytosis and anemia. She initially had a syncopal episode, at which time laboratory studies showed a hemoglobin of 7.9 and hematocrit of 22.9%. She had profoundly decreased platelets of 23,000 and an elevated white count of 20.4 with 80% lymphocytes. She is undergoing further evaluation of her cytopenias. A previous episode of abdominal pelvic pain has improved. Imaging showed a 4.6 cm non hemorrhagic left ovarian cyst, but no other significant findings. She denies any current bleeding. She denies any fevers. OBJECTIVE: Vitals: T 36.6, P 77, R 16, BP 107/68. HEENT: Conjunctivae slightly pale. Mucous membranes moist. No oral lesions. Nodes: No palpable adenopathy in the neck or axilla. Chest: Clear. Cardiac examination: Regular rate and rhythm with normal S1, S2. Abdomen: Soft, nontender. Normoactive bowel tones. No splenomegaly or masses. Extremities: No edema. 2+ distal pulses. LABORATORIES: WBC 16.5 with 71% lymphocytes, 21% neutrophils, 3% monocytes, 2% eosinophils, hemoglobin 8.8, hematocrit 25.8%, platelets 23,000. BUN 24, creatinine 0.98, glucose 110. AST 27, ALT 40, alkaline phosphatase 128. Flow cytometry-pending. ASSESSMENT AND PLAN: Lymphocytic leukocytosis with anemia and thrombocytopenia: Imaging has shown no evidence to suggest her remote diagnosis of tuberculosis. Await results of flow cytometry. The suspected diagnosis is chronic lymphocytic leukemia with possible autoimmune hemolytic anemia and thrombocytopenia. Other leukemias or lymphoproliferative disorders are with the differential. If flow cytometry is unrevealing, then bone marrow studies would be indicated. However, this could be provided as an outpatient if the patient is discharged. Although counts remain low, she is clinically stable at this time. We will continue to monitor with the hospitalist team. If discharged, please arrange [facility] on , May 02, 2017. VIDYA
[2017-04-30 08:17] LABS: BASOPHILS % (AUTO) 0 % (0-3); EOSINOPHILS % (AUTO) 0 % (0-5); MONOCYTES % (AUTO) 1 % (4-12); NEUTROPHILS % (AUTO) 15 % (40-74); Platelet Count 19 bil/L (150-400)
--- NOTE | 2017-04-30 13:11 | NUR ---
Flow Cytometry Primary RN called downstairs lab for results, paper results recd and given to physician.
--- NOTE | 2017-04-30 14:17 | PCM.PNMED ---
Subjective Date of Service Apr 30, 2017 Subjective Pt remained asymptomatic, plt level grossly unchanged, cytometry showed no PNH, otherwise no result available Exam Vital Signs Vital Sign - Last Date Time Temp Pulse Resp B/P Pulse Ox O2 Delivery O2 Flow Rate FiO2 04/30/17 09:26 36.7 77 16 105/68 99 Room Air Intake and Output 04/29/17 04/29/17 04/30/17 Cumulative From/Thru 15:00 23:00 07:00 04/24/17 10:50 - 04/30/17 05:45 Intake Total 500 ml 900 ml 400 ml 7955 ml Output Total 3220 ml Balance 500 ml 900 ml 400 ml 4735 ml Intake Oral 500 ml 900 ml 400 ml 6570 ml IV Total 1035 ml Packed Cells 350 ml Output Urine Total 3220 ml # Voids 3 3 2 15 # Bowel Movements 0 0 2 Exam pleasant, young lady, dark skin, no bruises throughout NAD, comfortably laying down on the bed no JVD, MMM, LAD on posterior cervical, Supraclavicular, no LAD in bilat Axilla RRR, nl s1, s2 no mrg CTAB, no w,c S,ND,NT,normoactive BS+ warm, no edema, pulses 2/2 IVs and Medications Medications Reviewed: Medications were reviewed in detail Lab and Diagnostics Result Diagram: 04/30/1761204/28/17 0635 X-Rays, CTs and MRIs . X-RAY CHEST ONE VIEW, PORTABLE IMPRESSION: Cardiomegaly as before, without acute cardiopulmonary disease. Dictated by: Kenny Wagner M.D. on 04/24/2017 CT BRAIN WITHOUT CONTRAST IMPRESSION: 1. No acute intracranial process. Dictated by: Lakshmi Leavitt M.D. on 04/24/2017 CT ABDOMEN AND PELVIS WITH CONTRAST IMPRESSION: 1. Gallstones as before, without CT findings of acute cholecystitis. 2. The appendix appears normal in morphology. 3. Dominant 4.6 cm nonhemorrhagic left ovarian cyst, presumably functional given the patient's age. If there is left adnexal region tenderness, consider 6- 12 week followup pelvic ultrasound to confirm expected size decrease or resolution. 4. Interval increased prominence of several normal sized bilateral iliac chain lymph nodes since 2006, of uncertain etiology. Early lymphoma may be a possibility. Dictated by: Kenny Wagner M.D. on 04/24/2017 PROCEDURE: CT CHEST WITH CONTRAST ([id number]) INDICATIONS: Evaluate treated tuberculosis, lymphocytosis IMPRESSION: 1. 6 mm right upper lobe nodule. It is nonspecific. Interval followup is recommended to document stability or resolution after appropriate therapy. 2. Bilaterally axillary lymph nodes, with the largest measuring 13 mm. In addition, there are numerous, subcentimeter lymph nodes in the aortopulmonary window. These may be reactive in nature. 3. Enlarged pulmonary artery suggestive of pulmonary artery hypertension. Dictated by: Lakshmi Leavitt M.D. on 04/26/2017 at 12:33 Cardiac Echo Impressions . Echocardiogram Report 11/23/2016 Interpretation Summary: Normal left ventricle size with ejection fraction 60-65%. Flattened septum is consistent with RV pressure/volume overload. Moderately dilated right ventricle with normal systolic function. Severely dilated right atrium. Mildly dilated left atrium. Mild mitral regurgitation. Mild tricuspid regurgitation. There is a large ASD that measures at 2.7 cm. with left to right ishunt. The right ventricular systolic pressure is estimated at 38 mmHg assuming a right atrial pressure of 3 mm Hg. Electronically signed by: Harjinder Adams 11/23/2016 ECHO 04/25/17 Interpretation Summary The left ventricle is normal in size. There is no ventricular septal defect visualized. The ejection fraction is estimated to be 55-60%. Flattened septum is consistent with RV pressure/volume overload. There is septal wall mild hypokinesis. Assessment of diastolic parameters indicates a relaxation abnormality of the left ventricle, consistent with normal filling pressures. The right ventricle is moderate to severely dilated. The right ventricular systolic function is normal. The right ventricular systolic pressure is estimated at least 63 mmHg assuming a right atrial pressure of 8 mm Hg. Compared to the prior echo exam, there has been an increase in the severity of pulmonary hypertension. The left atrium is severely dilated. The right atrium is severely dilated. The atrial septal defect is large. A secundum type atrial septal defect is present. Doppler evidence suggests a left to right interatrial shunt. Measuring 2.7 cm. There is mild to moderate tricuspid regurgitation. There is mild to moderate pulmonic regurgitation. Increased velocities through PV valve. Peak velocity is 2.37. Mean gradient is 15 mmHg. The aortic root is normal size. Severe pulmonary artery dilation. PA measuring 3.9cm. Slight increase compaired to previous study. The IVC is dilated (diameter is greater than 2.1 cm) yet it collapses greater than 50% with a sniff. This suggests a right atrial pressure of 8 mm Hg Assessment & Plan Ms. Castorena is a 31 female with past medical history of congenital heart murmur with ASD with [id number] shunt who presents to the ED via EMS secondary to syncopal episode and thrombocytopenia. 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 Initially suspected possible TB reactivation. However, currently no signs of active TB per ID, no test available to verify. Cold agglutinin negative, IgM WNL , haptoglobin, retic WNL. ot was transfused 1 unit PRBCs on 04/24 -wbc, h/h, plt remained unchanged, although lymph% is worsening, moderate aypitcal lymphocytes seem. pt has persistent cervical LAD -appreciate hematology followup, unclear pt can tolerate more invasive study given profound thrombocytopenia -awaits flow cytometry -consider steroid, however, labs not consistent to autoimmune hemolytic anemia, -will consider Axillary lymph nodes biopsy chronic, stable hx of TB, POA, Patient was treated for tuberculosis in 2008.CT chest and abd/ pelvis show small lymph nodes seen in abdomen and chest paraortic areas. Also has small LNs in axilla. Measuring 13mm on CT.there is also 6 mm right upper lobe nodule on CT chest . reactivation of TB causing hemolytic anemia and autoimmune thrombocytopenia unlikely but possible. # Syncope due to symptomatic anemia present on admission. Possibly due to symptomatic anemiam EKG shows normal sinus rhythm HR 89, no orthostatic drop. Echo from 12/06/2016 as above.repeat echo today shows worsening pulmonary HTN, pt remained asymptomatic. Patient Status:d/c tomorrow if cytometry unrevealing per oncology VTE Mechanical Devices: Venous Foot Pump Resuscitation Status: CPR: Attempt Resuscitation Time spent 35min Delfin Selby MD Apr 30, 2017 14:17
--- NOTE | 2017-04-30 17:42 | NUR ---
Social Work-readiness for discharge/ multidisciplinary rounds: Data:EMR Reviewed. Pt is on day 6 of hospitalization for syncope per H&P. Pt is not medically stable anticipate 1-2 more days. SW followed up with pt to confirms any unmeet discharge needs. Pt states she has further information for [facility] for insurance. SW took information, called [facility] and [facility] came and picked this up for pt. Pt declines any other SW needs. Pt's family to provide transport home at discharge. SW will continue to follow if needs arise. Assessment:Pt who is independent at baseline. Plan:Pt to discharge home when medically stable via POV. No anticipated discharge needs. SW will continue to follow if needs arise. GRIFFIN Robbins
[2017-05-01 05:06] VITALS: BP 93/61; PULSE 70; RESP 16; O2SAT 99
--- NOTE | 2017-05-01 06:08 | NUR ---
PT ACTIVITY Pt awake during first few hours of shift, family and friends in room. Pt denies pain or discomforts. Pt has been up in room independently, tolerates activity well. Continue to monitor. Call light in reach. Intentional rounding.
[2017-05-01 06:32] LABS: Mean Corpuscular Hemoglobin 29.8 pg (27.0-35.0); Mean Corpuscular Volume 86.6 fL (81-100)
[2017-05-01] MEDS: Sodium Chloride LOK Flush 10 mL Syringe IVFLUSH SCH (08:10)
[2017-05-01 08:56] LABS: BASOPHILS % (AUTO) 0 % (0-3); EOSINOPHILS % (AUTO) 0 % (0-5); MONOCYTES % (AUTO) 0 % (4-12); NEUTROPHILS % (AUTO) 11 % (40-74); Platelet Count 22 bil/L (150-400)
--- NOTE | 2017-05-01 10:13 | NUR ---
Blood-Cytometry Primary RN nic blood for Flow Cytometry and walked it to [facility]. Hospitalist and Dr Vishal rudd.
--- NOTE | 2017-05-01 11:02 | PCM.DIMED ---
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 You were monitored closely but didn't have complication or bleeding. Please note that you need to follow up the result of the study in the clinic with Dr.Bruce Rodgers in 1week. If you notice any bleeding episode, black stools, increasing bruises, any new headache and pain. Please return to hospital immediately Follow-up Provider: Shelton Rodgers MD Follow-up with PCP in: 1 week Delfin Selby MD May 01, 2017 11:02
[2017-05-01 11:11] VITALS: BP 101/64; PULSE 79; RESP 16; O2SAT 99
--- NOTE | 2017-05-01 11:28 | NUR ---
Social Work-discharge: data:EMR Reviewed. Pt is on day 7 of hospitalization for syncope per H&P. Pt is medically stable for discharge. Pt has been up independent in her room. No discharge needs identified. All updated and agreeable to plan. Assessment:Pt who is independent at baseline. Plan:Pt to discharge home today via POV. No discharge needs identified. All updated and agreeable to plan. GRIFFIN Robbins
--- NOTE | 2017-05-01 11:56 | NUR ---
Discharge Pt d/cd home with at 1050 via wc by the RN. Pt denied pain. IV d/cd. All personal belongings left with pt. VSS. F/u appt scheduled with Dr Rodgers for Fri at 1020, manager employee relations requested. Discharge info discussed with pt and live manager employee relations present. Pt denied having questions.
--- NOTE | 2017-05-01 19:53 | PCM.DC.MED ---
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 Shelton Rodgers Procedures XRay, CTs & MRIs . X-RAY CHEST ONE VIEW, PORTABLE IMPRESSION: Cardiomegaly as before, without acute cardiopulmonary disease. Dictated by: Kenny Wagner M.D. on 04/24/2017 CT BRAIN WITHOUT CONTRAST IMPRESSION: 1. No acute intracranial process. Dictated by: Lakshmi Leavitt M.D. on 04/24/2017 CT ABDOMEN AND PELVIS WITH CONTRAST IMPRESSION: 1. Gallstones as before, without CT findings of acute cholecystitis. 2. The appendix appears normal in morphology. 3. Dominant 4.6 cm nonhemorrhagic left ovarian cyst, presumably functional given the patient's age. If there is left adnexal region tenderness, consider 6- 12 week followup pelvic ultrasound to confirm expected size decrease or resolution. 4. Interval increased prominence of several normal sized bilateral iliac chain lymph nodes since 2006, of uncertain etiology. Early lymphoma may be a possibility. Dictated by: Kenny Wagner M.D. on 04/24/2017 PROCEDURE: CT CHEST WITH CONTRAST ([id number]) INDICATIONS: Evaluate treated tuberculosis, lymphocytosis IMPRESSION: 1. 6 mm right upper lobe nodule. It is nonspecific. Interval followup is recommended to document stability or resolution after appropriate therapy. 2. Bilaterally axillary lymph nodes, with the largest measuring 13 mm. In addition, there are numerous, subcentimeter lymph nodes in the aortopulmonary window. These may be reactive in nature. 3. Enlarged pulmonary artery suggestive of pulmonary artery hypertension. Dictated by: Lakshmi Leavitt M.D. on 04/26/2017 at 12:33 Cardiac Echo Impression . Echocardiogram Report 11/23/2016 Interpretation Summary: Normal left ventricle size with ejection fraction 60-65%. Flattened septum is consistent with RV pressure/volume overload. Moderately dilated right ventricle with normal systolic function. Severely dilated right atrium. Mildly dilated left atrium. Mild mitral regurgitation. Mild tricuspid regurgitation. There is a large ASD that measures at 2.7 cm. with left to right ishunt. The right ventricular systolic pressure is estimated at 38 mmHg assuming a right atrial pressure of 3 mm Hg. Electronically signed by: Harjinder Adams 11/23/2016 ECHO 04/25/17 Interpretation Summary The left ventricle is normal in size. There is no ventricular septal defect visualized. The ejection fraction is estimated to be 55-60%. Flattened septum is consistent with RV pressure/volume overload. There is septal wall mild hypokinesis. Assessment of diastolic parameters indicates a relaxation abnormality of the left ventricle, consistent with normal filling pressures. The right ventricle is moderate to severely dilated. The right ventricular systolic function is normal. The right ventricular systolic pressure is estimated at least 63 mmHg assuming a right atrial pressure of 8 mm Hg. Compared to the prior echo exam, there has been an increase in the severity of pulmonary hypertension. The left atrium is severely dilated. The right atrium is severely dilated. The atrial septal defect is large. A secundum type atrial septal defect is present. Doppler evidence suggests a left to right interatrial shunt. Measuring 2.7 cm. There is mild to moderate tricuspid regurgitation. There is mild to moderate pulmonic regurgitation. Increased velocities through PV valve. Peak velocity is 2.37. Mean gradient is 15 mmHg. The aortic root is normal size. Severe pulmonary artery dilation. PA measuring 3.9cm. Slight increase compaired to previous study. The IVC is dilated (diameter is greater than 2.1 cm) yet it collapses greater than 50% with a sniff. This suggests a right atrial pressure of 8 mm Hg Brief History HPI obtained by Dr. Boo on 04/24 Ms. Castorena is a 31 female with past medical history of congenital heart murmur with ASD with [id number] shunt who presents to the ED via EMS secondary to syncopal episode. 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 She does not know how long she was unconscious for an denies any pain before after the event. She states this sort of thing has never happened before but she does state that she has been feeling weak for the last 4 days with a mild headache for the last 2 weeks. She denies fever or chills, nausea vomiting diarrhea, current visual changes, current lightheadedness or dizziness, chest pain, shortness of breath, abdominal pain, change in bladder habits numbness or tingling in her extremities. She does state she has a mild persistent headache. Of note the patient had an IUD in place until June 2016 and was given a double shot at that time. She has not had her period in 10 months. She is currently asymptomatic. Primary care physician is Dr. Wolf from [facility] In the ED chest x-ray showed cardiomegaly, head CT showed no acute process, abdominal CT showed left ovarian cyst and interval increased prominence of several normal-sized bilateral iliac chain lymph nodes since 2006, of uncertain etiology. Early lymphoma may be a possibility Hospital Course Ms. Castorena is a 31 female with past medical history of congenital heart murmur with ASD with [id number] shunt who presents to the ED via EMS secondary to syncopal episode and thrombocytopenia. pt was hemodynamicallyi stable throughout even with severe thrombocytopenia, given new onset anemia, tthrombocytopenia, leukocytosis, abnormal leukocytes on microscope, pt was suspected CLL with probable autoimmune hemolytic anemia, although later IgM was WNL, cold agglutinin was negative. pt received 1unit on and didn't show any signs of bleeding throughout hospitalization. given pt's hx of TB, posible TB reactivation was suspected initially, however, since no test available and no signs of tb per ID, no further w/u or tx was pursued. Plan is to follow up with tomorrow, 05/02 FU the result of flow cytometry, if it's unrevealing, pt could potentially need BM biopsy per . 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 Initially suspected possible TB reactivation. However, currently no signs of active TB per ID, no test available to verify. Cold agglutinin negative, IgM WNL , haptoglobin, retic WNL. ot was transfused 1 unit PRBCs on 04/24 -wbc, h/h, plt remained unchanged, although lymph% is worsening, moderate aypitcal lymphocytes seem. pt has persistent cervical LAD -appreciate hematology followup, unclear pt can tolerate more invasive study given profound thrombocytopenia -awaits flow cytometry -consider steroid, however, labs not consistent to autoimmune hemolytic anemia, -will consider Axillary lymph nodes biopsy chronic, stable hx of TB, POA, Patient was treated for tuberculosis in 2008.CT chest and abd/ pelvis show small lymph nodes seen in abdomen and chest paraortic areas. Also has small LNs in axilla. Measuring 13mm on CT.there is also 6 mm right upper lobe nodule on CT chest . reactivation of TB causing hemolytic anemia and autoimmune thrombocytopenia unlikely but possible. # Syncope due to symptomatic anemia present on admission. Possibly due to symptomatic anemiam EKG shows normal sinus rhythm HR 89, no orthostatic drop. Echo from 12/06/2016 as above.repeat echo today shows worsening pulmonary HTN, pt remained asymptomatic. Patient Status:d/c tomorrow if cytometry unrevealing per oncology Exam Vital Signs (Last) Date Time Temp Pulse Resp B/P Pulse Ox O2 Delivery O2 Flow Rate FiO2 05/01/17 11:11 36.6 79 16 101/64 99 Room Air Exam pt was examined on the day of d/c Test 04/24/17 11:10 04/24/17 11:19 04/24/17 12:10 04/24/17 13:05 Prothrombin Time 11.7sec (8.1-12.5) Prothromb Time International Ratio 1.09ratio Activated Partial Thromboplast Time 25.7sec (22.8-33.0) Fibrinogen 211mg/dL (157-380) D-Dimer < 0.5mg/L FEU (<0.50) Troponin T 0.010ug/L (0.0-0.011) Urine Color Yellow (YELLOW) Urine Appearance Clear (CLEAR,HAZY) Urine pH 5.5 (5.0-8.0) Urine Specific [place] 1.020 (1.003-1.035) Urine Protein Negativemg/dL (NEG,TRACE) Urine Glucose (UA) Negativemg/dL (NEGATIVE) Urine Ketones Negativemg/dL (NEGATIVE) Urine Occult Blood Trace (NEGATIVE) Urine Nitrite Negative (NEGATIVE) Urine Bilirubin Negative (NEGATIVE) Urine Urobilinogen Normalmg/dL (NORMAL) Urine Leukocyte Esterase Trace (NEGATIVE) Urine RBC 0-2/hpf (0-2) Urine WBC 0-5/hpf (0-5) Urine Epithelial Cells Few/hpf (NONE-MOD) Urine Crystals None seen (NONE SEEN) Urine Bacteria Few/hpf (NONE-FEW) Urine Hyaline Casts None/lpf (NONE) Urine Granular Casts None seen (NONE SEEN) Urine Waxy Casts None seen (NONE SEEN) Urine Red Blood Cell Casts None seen (NONE SEEN) Urine White Blood Cell Casts None seen (NONE SEEN) Urine Mucus None seen (None Seen) Urine Trichomonas None seen (NONE SEEN) Urine Yeast None (NONE SEEN) Urinalysis Comment None Urine Culture Reflexed Indicated Lactic Acid Level 0.8mmol/L (0.4-2.0) Procalcitonin 0.16ng/mL (0.00-0.08) Test 04/25/17 06:20 04/25/17 09:27 04/25/17 17:54 04/25/17 18:37 Reticulocyte Count,Calculated 0.6% (0.6-2.6) Haptoglobin 120mg/dL (34-200) Iron Level 251ug/dL (35-150) Total Iron Binding Capacity < 266ug/dL (250-450) Percent Iron Saturation < 94%sat (15-50) Unsaturated Iron Binding 14.7ug/dL Lactate Dehydrogenase 228U/L (100-190) Cold Agglutinin Titer Negative (Neg <1:32) Serum Immunoglobulin A 203mg/dL (87-352) Serum Immunoglobulin G 1284mg/dL (700-1600) Direct Bilirubin 0.2mg/dL (0.0-0.3) Immunoglobulin M 151mg/dL (26-217) [facility] Specimen Peripheral blood (.) [facility] Submitting Diagnosis Comment (.) [facility] Red Blood Cells (.) [facility] Granulocytes Comment (.) [facility] Monocytes Comment (.) [facility] Viability 84% (.) [facility] Antibodies Performed Comment (.) [facility] Flow Differential Percent Comment (.) [facility] Environmental Compliance Engineer Histogram (.) [facility] Interpretation Comment (.) [facility] Reviewed By Comment (.) Test 04/26/17 08:23 04/28/17 06:35 04/29/17 07:30 04/30/17 06:13 Erythrocyte Sedimentation Rate 49mm/hr (0-32) C-Reactive Protein 0.5mg/dL (0.0-0.5) Sodium Level 138mEq/L (134-144) Potassium Level 4.3mEq/L (3.5-5.2) Chloride Level 103mEq/L (97-108) Carbon Dioxide Level 20mmol/L (18-29) Blood Urea Nitrogen 24mg/dL (6-20) Creatinine 0.98mg/dL (0.57-1.00) Estimat Glomerular Filtration Rate 95mL/min (>59) Glucose Level 110mg/dL (60-99) Calcium Level 8.5mg/dL (8.5-10.1) Magnesium Level 2.1mg/dL (1.6-2.6) Total Bilirubin 0.9mg/dL (0.0-1.2) Aspartate Amino Transf (AST/SGOT) 27U/L (0-50) Alanine Aminotransferase (ALT/SGPT) 40U/L (0-32) Alkaline Phosphatase 128U/L (25-150) Total Protein 6.6g/dL (6.4-8.4) Albumin 3.9g/dL (3.4-5.0) Hematology Comments Wbc Band Neutrophils % 2% (1-5) Nucleated Red Blood Cells 1/100 WBC (0-24) Test 05/01/17 06:05 White Blood Count 14.5th/mm3 (3.8-10.1) Red Blood Count 2.99mil/mm3 (3.90-5.20) Hemoglobin 8.9g/dL (12.0-15.6) Hematocrit 25.9% (35.0-46.0) Mean Corpuscular Volume 86.6fL (81-100) Mean Corpuscular Hemoglobin 29.8pg (27.0-35.0) Mean Corpuscular Hemoglobin Concent 34.4% (32.0-37.0) Red Cell Distribution Width 15.0% (12.3-15.4) Platelet Count 22bil/L (150-400) Neutrophils (%) (Auto) 11% (40-74) Lymphocytes (%) (Auto) 82% (14-46) Monocytes (%) (Auto) 0% (4-12) Eosinophils (%) (Auto) 0% (0-5) Basophils (%) (Auto) 0% (0-3) Blast Cells % 5% (0-0) Discharge Medications No Active Prescriptions or Reported Meds Followup Plan Disposition: home Discharge Diet: No restrictions Discharge Activity: No restrictions Patient Instructions You were hospitalized with severe abnormalities concerning for blood cancer. You were monitored closely but didn't have complication or bleeding. Please note that you need to follow up the result of the study in the clinic with Dr.Bruce Rodgers in 1week. If you notice any bleeding episode, black stools, increasing bruises, any new headache and pain. Please return to hospital immediately Follow-up Provider: Shelton Rodgers MD Follow-up with PCP in: 1 week Time spent 65min Delfin Selby MD May 01, 2017 19:53
--- NOTE | 2017-05-02 10:33 | PATH ---
FLOW CYTOMETRY REPORT Attending Physician:Shelton Rodgers M.D. ([facility] Reg. Cancer) COLLEGE ADMINISTRATOR RESULT DISPLAY AND UNSIGNED HARD COPIES ARE UNOFFICIAL. CASE STATUS: Signed Out DATE COLLECTED:05/01/2017 13:27 SPECIMEN: Peripheral Blood CLINICAL HISTORY: ANEMIA, LYMPHOCYTOSIS, THROMBOCYTOPENIA, POSSIBLE CLL, FINAL DIAGNOSIS: Peripheral Blood: WBC: Small blasts consistent with lymphoblasts estimated at approximately 50% of the total WBC consistent with acute B lymphoblastic leukemia/ lymphoma; see Comment. Left-shifted granulocytes. RBC: Marked normocytic anemia with polychromasia and rare nucleated RBC. Platelets: Marked thrombocytopenia with no significant morphologic abnormality. 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 The results of the flow cytometric findings were discussed with Dr. Rodgers by Dr. Barillas on 05/01/2017. Separate portions of peripheral blood collected in heparin are submitted to cytogenetics for routine karyotyping and an acute leukemia FISH panel. The cytogenetic results will be reported in an addendum. Flow Interpretation: ([id number]) Peripheral blood: Abnormal immature B-cell population with immunophenotypic characteristics of acute B lymphoblastic leukemia/lymphoma comprising 61% of the total leukocytes analyzed; see Comment. Flow Comment: Flow cytometric analysis of the peripheral blood after lysis of erythrocytes shows 61% of the leukocytes in the blast gate as determined by the CD45/sidescatter plot. Cells in the blast gate express uniform TdT, CD10, CD19, CD22, CD34 and HLA-DR with variable expression of CD20 on a subset and partial/dim expression of CD38 and CD117. The blasts are negative for surface immunoglobulin and all other B- or T-lymphoid markers. Aside from the partial/dim expression of CD117 on a small subset, the blasts are negative for all other myeloid or monocytic markers. No abnormal mature lymphocytes are identified, and the background maturing granulocytes are left-shifted but do not exhibit any significant immunophenotypic abnormalities. In summary, the flow cytometric findings support the diagnosis of acute B lymphoblastic leukemia/lymphoma. These results were discussed with Dr. Rodgers by Dr. Barillas on 05/01/2017 at 1830. Separate specimens of peripheral blood collected in heparin will be submitted to cytogenetics for routine karyotyping and an acute leukemia FISH panel. The flow cytometric results will be correlated with the peripheral blood morphology to confirm the diagnosis of acute B lymphoblastic leukemia/lymphoma. This will be reported in case [id number]. GROSS DESCRIPTION: RECEIVED 2 GREEN TOP TUBES RECEIVED 2 LAVENDAR TOP TUBES RECEIVED 2 PERIPHERAL SLIDES ACCOMPANYING IS REQUISITION FOR FLOW CYTOMETRY AND POSSIBLE CLL MICRO DESCRIPTION: Review of the peripheral smear shows a moderate leukocytosis with atypical lymphocytes which are slightly larger than the background of small mature lymphocytes. The atypical lymphocytes have finer chromatin, and some have a small nucleolus. Scant cytoplasm is present, and no cytoplasmic granules or Bassam rods are identified. Many of the blasts have a small rim of deeply basophilic cytoplasm. The morphologic characteristics are consistent with lymphoblasts. Left-shifted granulocytes are present consisting of metamyelocytes and myelocytes. RBC are normocytic with polychromasia and rare nucleated RBC. Platelets are markedly decreased, but no morphologically abnormal platelets are identified. ICD-9 CODES: PROCEDURE/ADDENDA: Addendum SPI Addendum Diagnosis TEST: CHROMOSOME, LEUKEMIA/LYMPHOMA CYTOGENETIC RESULT: 4,XX[10] INTERPRETATION: NORMAL FEMALE KARYOTYPE Please see [facility] report [phone] for complete details. TEST: FISH-No culture FISH RESULT: NO REARRANGEMENT OR AMPLIFICATION OF KMT2A OBSERVED NORMAL C-MYC GENE HYBRIDIZATION NORMAL BCR AND ABL1 HYBRIDIZATION Please see [facility] report [phone] for complete details. Addendum Comment *This test was developed and its performance characteristics determined by [employer] [facility] ([place]). It has not been cleared or approved by the U.S. Food and Drug Administration. The FDA has determined that such clearance or approval is not necessary. This test is used for clinical purposes. It should not be regarded as investigation or for research. Electronically Signed Out Buddy Barillas MD, PhD Electronically Signed Out Buddy Barillas MD, PhD [facility] Pathology [facility], [place] [address] Technical component performed at [facility], [address], [place], [address]
== END 2017-05-01 11:47 | disposition home or self-care (01) | DRG 809 ==
LOC: SED 10:45 → MPC 16:06
PROVIDERS: ADMIT Internal Medicine; ATTEND Internal Medicine
PROC: 30233N1 Transfusion of Nonautologous Red Blood Cells into Peripheral Vein, Percutaneous Approach (ICD-10-PCS; principal; 2017-04-24)
DX: D59.1 Other autoimmune hemolytic anemias (principal); C91.10 Chronic lymphocytic leukemia of B-cell type not having achieved remission; D69.6 Thrombocytopenia, unspecified; Q21.1 Atrial septal defect; I27.2 Other secondary pulmonary hypertension; R55 Syncope and collapse; D72.829 Elevated white blood cell count, unspecified; R01.1 Cardiac murmur, unspecified

== ENCOUNTER 2017-05-11 21:45 | Inpatient (IN) | payer MEDICAID ==
[~2017-05-11] VITALS: Ht 144.8 cm; Wt 66.1 kg
[2017-05-11 22:18] VITALS: BP 100/69; PULSE 77; RESP 14; O2SAT 100
--- NOTE | 2017-05-11 22:39 | ED.REPORT ---
HPI-NVD Date of Service May 11, 2017 ED Provider: Prateek Iniguez DO The pt is a 31 year old Maori-speaking female with a hx of leukemia on chemo, depression, heart murmur, and cystic fibrosis presenting to the ED complaining of a severe headache onset yesterday afternoon. She claims it got better for a little while, but returned again today. She rates her headache as a 9/10 severity. Her headache is exacerbated by standing up. Associated symptoms include vomiting, abdominal pain, and nausea. Denied symptoms include fever, diarrhea, and dysuria. She was recently discharged from the hospital at the [facility]. She had a spinal tap on and was discharged on the same day. Per her family, she was admitted for 1 week. Nursing Notes Stated Complaint: HEADACHE, VOMITING Chief Complaint: Female Abdominal Pain Nursing Notes Reviewed: Yes Allergies: Coded Allergies: No Known Allergies (Verified , 04/24/17) No Active Prescriptions or Reported Meds General Time Seen by MD: 22:39 Chief Complaint Other (headache) Hx Obtained From: [employer] Technician Arrived By: Walk-in Onset Occurred: Yesterday Symptom Duration: Constant Quality: Painful Severity: Current: Pain level 9 out of 10 Severity: Maximum: Pain level 10 out of 10 Recent Healthcare: Recent doctor visit, Recent hospitalization Similar Sx Previous: No Past Medical History Past Medical History Notes: spinal tap 05/09/2017 at [facility] Past Medical History heart murmur pneumonia echocardiogram 11/2016: ASD with left to right shunt Leukemia on chemotherapy Past Surgical History shunt Smoking History Unknown if Ever Smoker Social History Other Social History: Good social support Ambulatory Status Independent Review of Systems Constitutional: Denies: Chills, Fever GI: Reports: Abdominal pain, Nausea, Vomiting, Denies: Diarrhea Neurologic: Reports: Headache Complete sys rev & neg: except as marked. Female: Denies: Dysuria Physical Exam Initial Vital Signs Vital Signs (First) Date Time Temp Pulse Resp B/P Pulse Ox O2 Delivery O2 Flow Rate FiO2 05/11/17 22:18 37.2 77 14 100/69 100 Room Air Initial VS: Reviewed Head / Eyes: Atraumatic, Normocephalic Neck: Supple, Full range of motion Respiratory: Breath sounds normal, No respiratory distress Cardiovascular: Regular rate & rhythm, Heart sounds normal Lymphatic: No lymphadenopathy Extremities: Vascular intact Skin: Warm, Dry Neurologic: Alert, Oriented Psychiatric: Mood/affect normal, Behavior normal General/Constitutional: Awake, Alert Distress / Hydration: Positive: Distress mild Abdomen: Atraumatic, Soft, Non-tender Back: Atraumatic No redness, swelling, or induration at site of lumbar puncture Head / Eyes: Atraumatic, Normocephalic Scleral icterus Interpretation & Diagnostics CT HEAD No Contrast: CONCLUSION: Normal non-contrast scan of the head. This report was transmitted to the emergency room at 05/11/2017 - 11:18:41 PM PDT. Lab Results Interpretation Result Diagram: 05/11/17 2346 05/11/17 2346 Test 05/11/17 23:46 White Blood Count 0.3th/mm3 (3.8-10.1) Red Blood Count 3.83mil/mm3 (3.90-5.20) Hemoglobin 11.2g/dL (12.0-15.6) Hematocrit 31.0% (35.0-46.0) Mean Corpuscular Volume 80.9fL (81-100) Mean Corpuscular Hemoglobin 29.2pg (27.0-35.0) Mean Corpuscular Hemoglobin Concent 36.1% (32.0-37.0) Red Cell Distribution Width 13.3% (12.3-15.4) Platelet Count 23bil/L (150-400) Neutrophils (%) (Auto) % (40-74) Lymphocytes (%) (Auto) % (14-46) Monocytes (%) (Auto) % (4-12) Eosinophils (%) (Auto) % (0-5) Basophils (%) (Auto) % (0-3) Prothrombin Time 10.8sec (8.1-12.5) Prothromb Time International Ratio 1.01ratio Activated Partial Thromboplast Time 22.8sec (22.8-33.0) Sodium Level 133mEq/L (134-144) Potassium Level 5.1mEq/L (3.5-5.2) Chloride Level 95mEq/L (97-108) Carbon Dioxide Level 26mmol/L (18-29) Blood Urea Nitrogen 27mg/dL (6-20) Creatinine 0.57mg/dL (0.57-1.00) Estimat Glomerular Filtration Rate 177mL/min (>59) Glucose Level 181mg/dL (60-99) Lactic Acid Level 1.5mmol/L (0.4-2.0) Calcium Level 8.9mg/dL (8.5-10.1) Magnesium Level 2.1mg/dL (1.6-2.6) Total Bilirubin 2.9mg/dL (0.0-1.2) Aspartate Amino Transf (AST/SGOT) 16U/L (0-50) Alanine Aminotransferase (ALT/SGPT) 42U/L (0-32) Alkaline Phosphatase 85U/L (25-150) Troponin T 0.010ug/L (0.0-0.011) Total Protein 7.0g/dL (6.4-8.4) Albumin 4.0g/dL (3.4-5.0) ECG Interpretation ECG Interpretation: Probable left atrial enlargement Incomplete right bundle branch pattern Time: 23:17 Interpreted by: ED physician Normal ECG Interpretation: Normal sinus rhythm Re-Eval/Medical Decision Med Decision/Clinical Course Patient presents with headache. She has pancytopenia in the setting of recent induction chemotherapy for leukemia. Differential diagnosis includes post lumbar puncture headache, migraine, subarachnoid hemorrhage, meningitis or encephalitis. Patient is profoundly thrombocytopenic and for this reason no lumbar puncture will be performed. Patient will require platelet transfusion prior to either a blood patch or lumbar puncture. Antibiotics are discussed with the hospitalist and decision is made to hold antibiotics for now. Consultation : Referral / Consult Name: Yogi Gordon MD Consulted With: Hospitalist Call Returned at: 00:12 Production Control Expediter: Will see patient, Agrees with plan, Accepts admit Note: Accept admit. Do not start antibiotics at this point. Discharge & Departure Impression: Primary Impression: Pancytopenia Additional Impression: Headache Disposition: ADMITTED TO HOSPITAL Referrals: Kathy Wolf MD (PCP) Chris[facility]razia Attestation Portions of this note were transcribed by Mychal Baker. I, Dr. Iniguez personally performed the history, physical exam and medical decision-making; I reviewed and confirmed the accuracy of the information in the transcribed note. Signed by: Nathalie Maxwell, 05/11/2017 copies to: Kathy Wolf MD, Timothy Constantino BETANCOURT May 11, 2017 22:39 May 11, 2017 22:48
[2017-05-11] MEDS ORDERED: 0.9% Sodium Chloride 1,000 ML IV ONE (22:51)
[2017-05-11] MEDS ORDERED: MetoCLOpramide 5 mg/mL 2 mL Inj IVPUSH ONE (22:55)
[2017-05-11 23:52] LABS: Mean Corpuscular Hemoglobin 29.2 pg (27.0-35.0); Mean Corpuscular Volume 80.9 fL (81-100); Platelet Count 23 bil/L (150-400)
[2017-05-12] VITALS (8 sets, daily range): BP systolic 89–105; BP diastolic 52–64; PULSE 63–85; RESP 16–19; O2SAT 98–100
[2017-05-12 00:08] LABS: INR 1.01 ratio
[2017-05-12 00:17] LABS: TROPONIN T 0.01 ug/L (0.0-0.011)
[2017-05-12 00:26] LABS: Magnesium 2.1 mg/dL (1.6-2.6)
[2017-05-12] MEDS ORDERED: 0.9% Sodium Chloride 250 ML ONE (00:34)
[2017-05-12] MEDS ORDERED: Ondansetron 2 mg/mL 2 mL Inj IVPUSH PRN (01:00)
[2017-05-12] MEDS ORDERED: Alum-Mag Hydrox-Simeth 30 mL Suspension PO PRN ×2 (01:00→05:25)
[2017-05-12 02:09] LABS: APPEARANCE,URINE CLEAR (CLEAR,HAZY); COLOR,URINE DARK YELLOW (YELLOW); PH,URINE 5.5 (5.0-8.0)
[2017-05-12 02:10] LABS: OCCULT BLOOD,URINE LARGE (NEGATIVE)
[2017-05-12] MEDS: 0.9% Sodium Chloride 1,000 ML IV SCH ×2 (02:34→13:15)
[2017-05-12] MEDS ORDERED: DXM4T PO (03:15)
[2017-05-12] MEDS ORDERED: PROC10TA PO ×2 (03:15)
[2017-05-12] MEDS ORDERED: POLY17PO6 PO (03:15)
[2017-05-12] MEDS ORDERED: ZOV800 PO (03:15)
[2017-05-12] MEDS ORDERED: FLUC200T5 PO (03:15)
[2017-05-12] MEDS ORDERED: LEVO750T39 PO (03:15)
[2017-05-12] MEDS ORDERED: RANI75TA72 PO (03:15)
[2017-05-12] MEDS ORDERED: ONDA-54 PO (03:15)
[2017-05-12] MEDS ORDERED: SULF1TAB35 PO (03:15)
--- NOTE | 2017-05-12 03:23 | NUR ---
Ar[place] [facility]15[place] and father at bedside. provided current medications (had RX paperwork and bottles from appointment 05/09) and all entered into med rec and medications delivered to pharmacy by primer charger. provided basic translations to patient to ensure she was comfortable and not in pain. Informed of current liquid diet, not allowed to eat. Informed of neutropenic precautions to prevent infection. Informed that adapted physical education specialist on a stick was available. Per admission information can be completed based on history from admit 2 weeks prior as patient is sleepy. Pt is lethargic and nod's to any question, in kosovan or hungarian. She denies any SOB or headache, no back pain at LP site. off unit to go home and sleep, father rooming in. Care continues
[2017-05-12] MEDS ORDERED: Polyethylene Glycol (PEG) 17 Gm Powder PO PRN (05:25)
--- NOTE | 2017-05-12 05:57 | PCM.HPMED ---
Subjective Date of Service May 12, 2017 Primary Provider: Admitting Physician: Yogi Gordon MD Primary Care Physician: Kathy Wolf MD Attending Physician: Yogi Gordon MD Chief Complaint: Headache History of Present Illness: Ms. Castorena is a 31 female with past medical history of congenital heart murmur with history of recently diagnosed leukemia on chemotherapy, ASD with [id number] shunt who presents for headache. She states she first developed a headache after her lumbar puncture at [facility] on 05/09/2017. She said it lasted 10 minutes and went away. She then developed another headache on 05/10/2017 which has been constant since then. She described as 9 out of 10 in severity which was exacerbated by standing up. She has associated nausea, vomiting 5 without any hematemesis. She denies any fevers, chills, neck pain or stiffness, chest pain, shortness of breath, abdominal pain, dysuria , diarrhea. 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 Received cycle one from -05/17 at [facility]. Regular oncologist is Dr. Rodgers. On 05/10 she started daily GCSF 480 mcg subcutaneously. In the ED she was found to have pancytopenia WBC 0.3, Hgb 11.2, HCT 31.0, platelets 23. Sodium 133, potassium 5.1, chloride 95, CO2 26, BUN 27, creatinine 0.57, glucose 181, lactic acid 1.5, total bilirubin 2.9, AST 16, ALT 42, alkaline phosphatase 85, troponin 0.010. CT head was unremarkable. There were not able to do a lumbar puncture due to thrombocytopenia. Platelet transfusion was done. Review of Systems: A comprehensive review of systems was conducted with the patient and found to be negative except as above in the History of Present Illness. Allergies Coded Allergies: No Known Allergies (Verified , 04/24/17) Home Medications Acyclovir 800 mg twice a day Dexamethasone 4 mg by mouth daily from 05/14-05/17 Levofloxacin 750 mg by mouth daily Bactrim 800-160 mg, 1 tablet by mouth 2 times a day Mondays and Tuesdays Fluconazole 200 mg daily PMH heart murmur pneumonia echocardiogram 11/2016: ASD with left to right shunt Leukemia on chemotherapy Surgical History Denies Family History States mother passed from diabetes Father still alive 2 brothers, 4 sisters. One sister with heart murmur Social History Hx Alcohol Use: No Hx Substance Use: No Hx Tobacco Use: No Smoking Status: Unknown if Ever Smoker Exam Vital Signs Vital Sign - Last Date Time Temp Pulse Resp B/P Pulse Ox O2 Delivery O2 Flow Rate FiO2 05/12/17 02:29 36.4 73 16 89/56 100 Room Air Intake and Output 05/11/17 05/11/17 05/12/17 Cumulative From/Thru 14:58 22:58 06:58 05/11/17 22:18 - 05/12/17 02:03 Intake Total 1000 ml 1000 ml Balance 1000 ml 1000 ml Intake IV Total 1000 ml 1000 ml Exam General: No acute distress, well-developed, well-nourished, appropriately interactive HEENT: Normocephalic, atraumatic. External ears without defect. Pupils equal, round, and reactive to light and accommodation. scleral icterus, moist conjunctivae. Neck: Supple with full range of motion. No neck tenderness. No lymphadenopathy or thyromegaly. Cardiovascular: Regular rate and rhythm with no murmurs, rubs, or gallops appreciated Pulmonary: Clear to auscultation bilaterally with no crackles, wheezes, or rhonchi. Normal respiratory effort with no use of accessory muscles. Abdomen: Bowel tones present. Soft, nontender, nondistended. No hepatosplenomegaly or masses appreciated. Extremities: No clubbing, cyanosis, edema, or lymphadenopathy appreciated. Skin: Normal temperature, turgor, and texture Neurological: Cranial nerves grossly intact. Normal muscle strength, tone, and bulk. Reflexes, coordination, and sensory function within normal limits. Psychiatric: Normal mood and affect. Alert and oriented to person, place, and time. Lab and Diagnostics Result Diagram: 05/11/17 2346 05/11/172345 X-Rays, CTs and MRIs CT HEAD No Contrast: CONCLUSION: Normal non-contrast scan of the head. Assessment & Plan Ms. Castorena is a 31 female with past medical history of B-cell acute lymphoblastic leukemia, congenital heart murmur with ASD with [id number] shunt who presents with headache. Headache, Present on admission, resolved Differential includes post lumbar puncture headache, migraine, subarachnoid hemorrhage, meningitis or encephalitis. Her headache did resolve by the time she was admitted to the hospital. - Lumbar puncture not done in ED due to severe thrombocytopenia. - Platelet transfusion in the ED. - Repeat CBC, CMP - Tylenol PRN B-cell acute lymphoblastic leukemia, Present on admission, active CD20 positive per oncology note. Plan is per outpatient oncology note listed below. - Started daily GCSF 480 mcg subcutaneously on 05/10 - Acyclovir 800 mg b.i.d. for prophylaxis. - Fluconazole 200 mg daily for prophylaxis. - Levofloxacin 750 mg daily for prophylaxis. - Bactrim DS b.i.d. on Mondays and Tuesdays for prophylaxis. - Dexamethasone 40 mg daily x4 days, for May 14 through May 17. Pancytopenia. Present on admission. Ongoing Secondary to Leukemia - Platelet transfusion in ED. - Continue to monitor - Blood cultures pending Code Status: Full Code Patient Status: Patient is admitted under observation status with expected length of stay less than 2 midnights due to severity of presenting symptoms, risk of adverse event, and complexity of treatment plan. VTE Mechanical Devices: Intermittant Pneumatic CD Resuscitation Status: CPR: Attempt Resuscitation Attending Statement Patient seen and examined today. Agree with assessment and plan as outlined below. In addition, discussed the case with Dr. Shafer who is covering Dr. Rodgers. Continue neupogen. US abd to rule out any biliary pathology. Yogi Poole DO May 12, 2017 03:29 Clarence Whittington MD May 12, 2017 16:42 Yogi Gordon MD May 12, 2017 19:19
[2017-05-12] MEDS: Acyclovir 800 mg Tablet PO SCH ×2 (08:49→19:52)
[2017-05-12] MEDS: levoFLOXacin 750 mg Tablet PO SCH (08:49)
--- NOTE | 2017-05-12 09:05 | DRSVH ---
PROCEDURE: CT BRAIN WITHOUT CONTRAST ([id number]) INDICATIONS: headache leukemia TECHNIQUE: Noncontrast 4.5 mm thick angled axial sections acquired from the foramen magnum to the vertex, with c oronal reformats. COMPARISON: [facility], CT, CT BRAIN WO CON, 04/24/2017, 14:34. FINDINGS: Image quality: Excellent. CSF spaces: Basal cisterns are patent. No extra-axial fluid collections. Ventricles are normal in size and shape. Brain: No midline shift. No intracranial masses or hemorrhage. Palafox-white matter interface is norm al. Skull and face: Calvarium and visualized facial bones are intact, without suspicious lesions. Sinuses: Visualized sinuses and mastoids are clear. IMPRESSION: 1. No acute intracranial process. Dictated by: Lakshmi Leavitt M.D. on 05/12/2017 at 9:03 Approved by: Lakshmi Leavitt M.D. on 05/12/2017 at 9:04
[2017-05-12 09:09] LABS: BASOPHILS % (AUTO) 0 % (0-3); EOSINOPHILS % (AUTO) 0 % (0-5); MONOCYTES % (AUTO) 0 % (4-12); Mean Corpuscular Hemoglobin 29.6 pg (27.0-35.0)
[2017-05-12 10:01] LABS: Platelet Count 19 bil/L (150-400)
--- NOTE | 2017-05-12 15:23 | NUR ---
Social Work- Initial Assessment/Multidisciplinary Rounds Data: See Initial Assessment for additional information. Pt is a 31 year old female admitted [facility] for headache, pancytopenia per H&P. Pt has no insurance listed. Pt's PCP is Kathy Wolf MD. Pt's readmit risk score is not listed at this time. Pt discussed in multidisciplinary rounds, no concerns raised regarding patient's capacity for self-care. Pt is likely to d/c home. SW met with pt and at bedside with the video ruffling machine operator, SW role explained. Pt alert and oriented x3. Pt resides in [place] in an apartment with her . Pt is independent with ADLs and self-care. Pt's oncologist is Vishal. Pt uses no DME at baseline and continues to drive. Pt has no HH or SNF history, no LTC or VA benefits. Pt declined DPOA information when explained at bedside. RCA referral made, pt is agreeable to RCA screening. RCA likely to screen on Saturday. [employer] Application in Turkmen provided. Pt is likely to d/c home with her spouse to transport via POV. No anticipate d/c needs, SW will continue to follow. Assessment: Pt who is independent with ADLs and self-care Plan: RCA screening pending, statistical financial analyst application provided. Pt is likely to d/c home with her spouse to transport via POV. No anticipate d/c needs, SW will continue to follow. GRIFFIN Thurman Addendum: 05/12/17 at 1527 by ROMANA MARIEE SS Amended: Links added.
[2017-05-12] MEDS ORDERED: Sodium Chloride LOK Flush 10 mL Syringe IVFLUSH PRN ×2 (17:55)
--- NOTE | 2017-05-12 18:54 | DRSVH ---
PROCEDURE: X-RAY CHEST ONE VIEW, PORTABLE ([id number]) INDICATIONS: picc line placement TECHNIQUE: One view of the chest was acquired. COMPARISON: None. FINDINGS: Surgical changes and devices: Right PICC line is present with distal tip overlying the mid thoracic s pine. Lungs and pleura: No pleural effusions or pneumothorax. Lungs are clear. Mediastinum: Mediastinal contours appear normal. Heart size is normal. Bones and chest wall: No suspicious bony lesions. Overlying soft tissues appear unremarkable. IMPRESSION: Right PICC line with distal tip overlying the mid thoracic spine. This is venous it would be at the level of the mid SVC. However, given the line location, venous placement cannot be definit ively confirmed on the basis of this examination. Recommend clinical correlation with blood return or repeat chest x-ray without patient rotation. Dictated by: Lakshmi Leavitt M.D. on 05/12/2017 at 18:50 Approved by: Lakshmi Leavitt M.D. on 05/12/2017 at 18:52
--- NOTE | 2017-05-12 18:57 | DRSVH ---
PROCEDURE: US ABDOMEN, LIMITED ([id number]) INDICATIONS: Evaluation of biliary ducts TECHNIQUE: Real-time focused scanning was performed of the abdomen, with image documentation. COMPARISON: [facility], CT, CT ABD PELVIS W CON, 04/24/2017, 14:34. FINDINGS: The liver is unremarkable. The gallbladder demonstrates wall thickening measuring 3.6 mm. T here are multiple areas of increased echogenicity within the gallbladder appearing mobile. Nuclear di lation. Cholelithiasis with No pericholecystic fluid collection. There is a slight appearance of margot l collecting system prominence on the right. It is noted that this was also present on the 04/24/17 exa m. IMPRESSION: 1. Gallstones with wall thickening most suggestive of cholecystitis. Recommend clinical correlation. No biliary dilation. 2. Persistent minimal prominence of the right renal collecting system. Dictated by: Lakshmi Leavitt M.D. on 05/12/2017 at 18:53 Approved by: Lakshmi Leavitt M.D. on 05/12/2017 at 18:56
[2017-05-13] MEDS: 0.9% Sodium Chloride 1,000 ML IV SCH ×3 (00:33→22:34)
--- NOTE | 2017-05-13 01:30 | NUR ---
Activity No complaints of pain this shift. No SOB. No further tingling or side effects from epogen injection. NS infusing 100 ml/hr in PICC. and family members in room. Patient tolerates PO intake well this shift and no reports of nausea. Care continues
[2017-05-13 05:15] VITALS: BP 94/68; PULSE 78; RESP 16; O2SAT 99
[2017-05-13 05:20] LABS: Platelet Count 15 bil/L (150-400)
[2017-05-13 05:39] LABS: Bilirubin, Direct 0.3 mg/dL (0.0-0.3)
--- NOTE | 2017-05-13 08:12 | PCM.PNMED ---
Subjective Date of Service May 13, 2017 Subjective Patient seen and examined. Complains of mild epigastric pain on deep palpation, but no nausea. Vitals noted. Exam Vital Signs Vital Sign - Last Date Time Temp Pulse Resp B/P Pulse Ox O2 Delivery O2 Flow Rate FiO2 05/13/17 05:15 36.7 78 16 94/68 99 Room Air Intake and Output 05/12/17 05/12/17 05/13/17 Cumulative From/Thru 15:00 23:00 07:00 05/11/17 22:18 - 05/13/17 05:15 Intake Total 2062 ml 1865 ml 5027 ml Output Total 1000 ml 950 ml 1950 ml Balance 1062 ml 915 ml 3077 ml Intake Oral 600 ml 875 ml 1575 ml IV Total 1462 ml 990 ml 3452 ml Output Urine Total 1000 ml 950 ml 1950 ml # Voids 1 # Bowel Movements 0 0 0 Exam General: No acute distress, well-developed, well-nourished, appropriately interactive Cardiovascular: Regular rate and rhythm with no murmurs, rubs, or gallops appreciated Pulmonary: Clear to auscultation bilaterally with no crackles, wheezes, or rhonchi. Normal respiratory effort with no use of accessory muscles. Abdomen: Bowel tones present. Soft, nontender, nondistended.Epigastric pain on deep palpation Extremities: No clubbing, cyanosis, edema, or lymphadenopathy appreciated. Neurological: Cranial nerves grossly intact. Normal muscle strength, tone, and bulk. Reflexes, coordination, and sensory function within normal limits. Lab and Diagnostics Result Diagram: 05/13/17 0500 05/13/17 0500 X-Rays, CTs and MRIs CT HEAD No Contrast: CONCLUSION: Normal non-contrast scan of the head. Assessment & Plan Ms. Castorena is a 31 female with past medical history of B-cell acute lymphoblastic leukemia, congenital heart murmur with ASD with [id number] shunt who presents with headache. Neutropenia - secondary to chemotherapy - afebrile - neupogen being given - on prophylactic abx as listed below - discussed the case with Dr. Shafer yesterday on phone, no transfusions recommended at this point Elevated bilirubin - Total bili elevated, direct normal - likely secondary to hemolysis from lymphoma - however, us abd suggestive of cholecystitis due to gall bladder thickening - will get surgery's opinion, along with ID B-cell acute lymphoblastic leukemia, Present on admission, active CD20 positive per oncology note. Plan is per outpatient oncology note listed below. - Started daily GCSF 480 mcg subcutaneously on 05/10 - Acyclovir 800 mg b.i.d. for prophylaxis. - Fluconazole 200 mg daily for prophylaxis. - Levofloxacin 750 mg daily for prophylaxis. - Bactrim DS b.i.d. on Mondays and Tuesdays for prophylaxis. - Dexamethasone 40 mg daily x4 days, for May 14 through May 17. Headache, Present on admission, resolved - likely secondary to recent lumbar puncture in uw, completely resolved now Pancytopenia. Present on admission. Ongoing Secondary to Leukemia - Platelet transfusion in ED. - Continue to monitor - Blood cultures pending Code Status: Full Code Dispo: Pending improvement pancytopenia VTE Mechanical Devices: Intermittant Pneumatic CD Resuscitation Status: CPR: Attempt Resuscitation Time spent 35 mins Clarence Whittington MD May 13, 2017 08:12
[2017-05-13] MEDS: levoFLOXacin 750 mg Tablet PO SCH (08:52)
[2017-05-13] MEDS: Acyclovir 800 mg Tablet PO SCH ×2 (08:52→22:31)
[2017-05-13] MEDS: Trimethoprim-Sulfa 160 mg-800 mg Tablet PO SCH ×2 (08:52→22:31)
--- NOTE | 2017-05-13 09:19 | PROG NOTE ---
[address] [address] PROGRESS NOTE PATIENT: NEREIDA CONTRERAS : 1985 MR#: [id number] ADMIT: 05/12/2017 JOB ID: [id number] DATE: 05/13/2017 SUBJECTIVE: The patient is a 31-year-old, woman (Frisian-speaking only), with recently diagnosed B-cell ALL. She was referred to the [facility] and initiated chemotherapy on Monday, March 27, 2017. Flow cytometry at the [facility] showed 60.4% of the total white blood cells were abnormal immature B cells with 21.4% CD 20 expression on blasts, [place] chromosome negative. She began cycle 1a hyper-CVAD chemotherapy from May 04 through May 08, 2017, with the addition of Rituxan on May 09, 2017, due to her high CD 20 expression and [place] chromosome-negative cytogenetics. At discharge from [facility] on May 09, 2017, she had an absolute neutrophil count of 80 and persistent thrombocytopenia with poor response to platelet transfusions. She had a high PRA of 90%, which will require platelet donors based on acceptable HLA typing. She was hospitalized over the weekend with a severe headache and vomiting. CT of the brain on May 11, 2017, showed no acute intracranial process. Abdominal ultrasound done to evaluate mild transaminitis showed gallstones with wall thickening suggestive of cholecystitis. There was no biliary dilatation. She has been receiving fluids and Tylenol. She is on Granix 480 mcg subcutaneously daily for 14 days, and prophylactic antibiotic coverage with Bactrim DS b.i.d., acyclovir 800 mg twice daily, Levaquin 750 mg daily, and Diflucan 200 mg daily. Headaches have improved and she is feeling much more comfortable this morning. She has been afebrile. OBJECTIVE: Vitals: T 36.7, P 78, R 16, BP 94/68. HEENT: Conjunctivae pale. Mucous membranes moist. No oral lesions. Nodes: No adenopathy in the neck, axilla, or groin. Chest: Clear to auscultation and percussion throughout. Cardiac exam: Regular rate and rhythm with normal S1, S2. Abdomen: Soft, nontender. Normoactive bowel tones. No splenomegaly or masses. Extremities: No edema. 2+ distal pulses. No calf tenderness. LABORATORIES: WBC 0.3, hemoglobin 9.6, hematocrit 26.8%, platelets 15,000. Sodium 132, potassium 4.3, BUN 17, creatinine 0.42, glucose 121. AST 11, ALT 27, alkaline phosphatase 82, total bilirubin 2.7, total protein 5.6, albumin 3.6. PT 10.8, INR 1.01, PTT 22.8. ASSESSMENT AND PLAN: 1. B-cell acute lymphoblastic leukemia: Originally diagnosed [place] [facility] [place], confirmed at the [facility], where 60.4% of total white blood cells were abnormal immature B cells with 21.4% CD 20 expression on blasts, [place] chromosome negative. She is in the midst of cycle 1a hyper-CVAD. She is to receive daily G-CSF (Granix) 480 mcg subcutaneously. This began on Wednesday, May 10, 2017. Her hospitalization was likely due to a post lumbar puncture headache, which is better controlled at this time. Day 11 treatment with vincristine 2 mg IV, rituximab 375 mg/m2 IV, and 100 mg intrathecal cytarabine is due tomorrow. She is also due to begin dexamethasone 40 mg daily, beginning May 14 through May 17, 2017. Her next PICC dressing change is due on May 17, 2017. She will need a platelet transfusion prior to her intrathecal cytarabine tomorrow. Goal platelets for intrathecal therapy are 50,000, or greater. She had a high PRA of 90%, which means that platelet donors should be based on acceptable HLA typing, which will be done by blood [employer]. Recommend type and cross today for transfusion with HLA compatible irradiated platelets tomorrow prior to her intrathecal aamir-C. With her current hematocrit of 26.8%, we will not schedule additional packed red blood cell transfusion at this time. All blood products should be irradiated and HLA acceptable. Continue prophylactic acyclovir 800 mg twice daily, fluconazole 200 mg daily, Bactrim DS b.i.d. each Saturday and Saturday, and Levaquin 750 mg each night. 2. Fertility concerns: The patient is a 3 para 3, but is hoping that she could become following treatments. Recommend Lupron 11.5 mg deep IM on May 17, 2017, with initiation of 10 days of letrozole 5 mg daily and norethindrone 5 mg daily to start at that time. If she starts having a monthly cycle and is severely thrombocytopenic, then she should receive additional platelet transfusion as appropriate. We do not recommend use of estrogens for bleeding given active malignancy and hypercoagulable state. 3. Secundum atrial septal defect: The patient has a congenital defect with left to right shunt, evidence of severe right ventricular pressures with severe right atrial enlargement, but normal bilateral ventricular function with a left ventricular ejection fraction greater than 60% and no evidence of pulmonary hypertension. Given that she is likely to be neutropenic and thrombocytopenic for a prolonged time, surgical repair will be deferred until she is no longer receiving chemotherapy. Avoid dramatic fluid shifts and volume overload when giving chemotherapy. Use air locks at all times for blood draws or infusions. Given her ongoing needs, recommend continued hospitalization at least until chemotherapy and intrathecal therapy is complete tomorrow. CC: Yogi Poole DO
[2017-05-13 09:30] VITALS: BP 101/59; PULSE 81; RESP 16; O2SAT 100
[2017-05-13] MEDS: Ondansetron 2 mg/mL 2 mL Inj IVPUSH PRN (10:33)
[2017-05-13 13:30] VITALS: BP 98/61; PULSE 77; RESP 17; O2SAT 100
--- NOTE | 2017-05-13 17:03 | CONS ---
[address] [address] CONSULTATION REPORT PATIENT: NEREIDA CONTRERAS : 1985 MR#: [id number] ADMIT: 05/12/2017 JOB ID: [id number] DATE OF SERVICE: 05/13/[address] Whittington for this timely consult. REASON FOR CONSULT: Possible cholecystitis in the setting of neutropenia. HISTORY OF THE PRESENT ILLNESS: The patient is an unfortunate 31-year-old woman who was recently diagnosed with B-cell ALL. She has already started hyper-VAD plus rituximab, and on May 09, she was at the [facility] for an intrathecal methotrexate injection. Following that injection on May 09, she developed a moderately severe headache on May 10, which developed into intractable nausea, vomiting, and excruciating headache on May 11. Because of this terrible headache on May 11, the patient was admitted to this facility for evaluation. The patient tells us that since admission she has been steadily improving and at this point, her headache is fairly minimal except when she abruptly stands up. She states her nausea and vomiting have subsided, though she did have a little bit of vomiting earlier today. At this point, she is hungry because she is being made n.p.o. for an upcoming surgical consult. The surgery consult was prompted by the finding of an ultrasound which suggested possible cholecystitis. Despite her ongoing though now diminishing headache, as well as some nausea and occasional vomiting, the patient reports she feels relatively well. At no point has she had fevers, chills or sweats. She additionally denies intraoral complaints, cough, shortness of breath or abdominal pain. She has had no diarrhea, no dysuria. PAST MEDICAL HISTORY: 1. B-cell ALL. 2. ASD with cardiomegaly and large shunt. 3. History of TB, 2007 or 2008. Appropriately treated through [facility] according to the patient's recollection. During a prior admission this year on the same patient, I called [facility] and somewhat surprisingly they have no records at all. 4. Three pregnancies and three healthy children, all in school. SOCIAL HISTORY: The patient is from [facility] [facility]. She emigrated 13 years ago and has never returned. She is a nonsmoker, nondrinker. FAMILY HISTORY: Positive for TB in her father. REVIEW OF SYSTEMS: Was comprehensive and was done today. The patient reports a minimal headache at this point. No visual complaint. No vertigo. She denies any stiff neck, sores in the mouth or trouble swallowing. She does note she is quite hungry. No current cough shortness, of breath or chest pain. She has minimal nausea at this point, and is primarily just hungry. She did have a little bit of vomiting a couple hours ago but it is much improved over the last two days. No diarrhea, dysuria, urgency, or frequency. No swelling of the joints. No skin rash and no problems with her PICC line. Remainder of the review of systems negative. PHYSICAL EXAMINATION: Reveals an afebrile woman. Temp 37.4, pulse 77, respiratory rate 17, blood pressure 98/61. She is saturating 100% on room air. Mental status is completely clear. She is oriented x3. Head without trauma. No temporal wasting. Eyes without conjunctivitis. Nose is normal. Oral cavity without thrush, pharyngitis, or hairy leukoplakia. Teeth are in good repair. No evidence of gingivitis. Neck is completely supple. No adenopathy or JVD. Lungs completely clear to auscultation posteriorly. A 3/6 holosystolic machinery-type murmur heard across the precordium. Abdomen soft and nontender. Absolutely no tenderness in the right upper quadrant. No hepatosplenomegaly, no ascites. No suprapubic tenderness. She does not have a Andre catheter. No inguinal adenopathy. Extremities are warm and well perfused. No evidence of synovitis. Range of motion of extremities is normal. Neurologically she is intact. No skin rash noted. LABORATORIES: Include white count 300; that is 12% or so neutrophils, neutrophil count about 36. Platelet count very low at 15,000, hematocrit 27, platelet count 0.42. LFTs are normal except bilirubin 2.7. Note that her bilirubin was high on her prior admission as well. Procalcitonin not done during this admission. Urinalysis without white cells, which is not of much significance as she has no white cells. Serum IgG on her last admission 1284. Micro studies include negative blood cultures from May 11. During her previous admission back in early April she also had negative blood cultures. I reviewed extensive records from [facility]. 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 I do not see any report of testing nor Strongyloides testing despite her earlier residence in [facility]. Note that she did spend part of her childhood in a thatched roof home. IMAGING STUDIES: Include chest x-ray with clear lung garcia. An abdominal ultrasound done on May 12 because of her vomiting showed gallstones with wall thickening to 3.6 mm. No pericholecystic fluid is seen, and the right renal collecting system is slightly distended as it was on a prior imaging study back in early April. A CT of the brain was normal. IMPRESSION: This is an unfortunate 31-year-old woman who fairly recently was diagnosed with B-cell ALL and is just now getting started with chemotherapy. As part of that chemo, she underwent a lumbar puncture and intrathecal methotrexate injection on May 09, which resulted in a severe headache as well as nausea and vomiting. This was a classic spinal headache as it was associated with sudden movements or being upright for sustained periods and it is now subsiding after bed rest and IV fluids. I see no evidence for meningitis or any sort of central nervous system process. The other issue here is whether she might have some component of cholecystitis. Clinically, this does not appear to be the case. She was feeling fine up until the time she had the intrathecal methotrexate and lumbar puncture and following that, she developed nausea, vomiting, and a terrible headache. As the headache has resolved, so has the nausea and vomiting, and I see no evidence clinically for cholecystitis. Her ultrasound is notable for a little bit of wall thickening but this does not sound too impressive and there is no pericholecystic fluid nor, most importantly, is there any tenderness with even very deep palpation in the right upper quadrant. RECOMMENDATIONS: 1. I would continue the patient on the prophylactic antibiotics selected by her Heme-Onc doctors which currently include levofloxacin, fluconazole, acyclovir, and Bactrim. 2. I see no reason to add any additional antibiotics at this time. 3. From an Infectious Disease point of view, the patient could be discharged once she has been seen by Surgery as I note that surgery has been consulted to additionally evaluate her gallbladder, but I suspect they will say the patient is clear to go as well. 4. If the patient is still here tomorrow, we will plan to see her on rounds.
--- NOTE | 2017-05-13 19:10 | NUR ---
Off Unit Pt off unit for HYDA scan at 1630. A&Ox3, IV patent - 2x PICC at Right and infusing NS at 100ml/hr, Urine dip - test NEG, No c/o pain, Used plastic mixer on a stick to inform pt of procedure - agreeable and stating understanding. Pt left via w/c. Chart with patient. At 1910, pt still has not returned from HYDA scan procedure - this RN not able to claim IV Intake. Will pass on to NOC RN. Family in room awaiting pt return.
--- NOTE | 2017-05-13 19:31 | DRSVH ---
CORRECTED PROCEDURE NAME AND ACCESSION/PLACER NUMBER ON 05/16/17 PROCEDURE: NM HIDA SCAN WITHOUT CCK PHARMACEUTICAL: 5.5 mCi Tc-99m mebrofenin IV INDICATIONS: neutropenic pt, r/o cholecystitis. Ultrasound examination performed 05.12.17 revealed ch olecystitis. TECHNIQUE: Following intravenous administration of Tc-99m mebrofenin, sequential anterior abdominal images were obtained. To evaluate the contractile response of the gallbladder in response to Cholecystokinin (CC K), sincalide (0.02 g/kg) was administered by slow intravenous infusion approximately 60 minutes aft er the administration of the radiopharmaceutical. Sequential imaging was continued for [address] the start of CCK infusion. Gallbladder ejection fraction was calculated. COMPARISON: [facility], US, ABDOMEN LTD, 05/12/2017, 17:08. [facility], CT, CT CHEST W CON, 04/25/2017, 18:08. [facility], CT, CT ABD PELVIS W CON, 04/24/2017, 14:34. FINDINGS: Biliary scan: There is normal tracer uptake and excretion by the liver. There is normal visualizati on of the intrahepatic ducts and common bile duct. The gallbladder is nonvisualized. There is normal tracer transit into the duodenum. IMPRESSION: 1. Nonvisualization of the gallbladder, consistent with cholecystitis, as seen by ultrasound examinat ion dated 05.12.17. Findings discussed with Dr. Christopher on 05.13.17 at 1940 hrs. Dictated by: Dipesh Ty M.D. on 05/13/2017 at 19:27 Transcribed by: CANDI on 05/13/2017 at 19:31 Approved by: Dipesh Ty M.D. on 05/13/2017 at 19:45
[2017-05-13 20:03] VITALS: BP 101/65; PULSE 73; RESP 16; O2SAT 98
--- NOTE | 2017-05-13 20:05 | CONS ---
[address] [address] CONSULTATION REPORT PATIENT: NEREIDA CONTRERAS : 1985 MR#: [id number] ADMIT: 05/12/2017 JOB ID: [id number] DATE OF SERVICE: 05/13/2017 CHIEF COMPLAINT/IDENTIFICATION: The hospitalist service has asked for General Surgery consult on this 31-year-old female admitted with neutropenia status post chemotherapy for a question of cholecystitis. HISTORY OF PRESENT ILLNESS: The patient presented to the hospital yesterday with a chief complaint that appears to have been a post-lumbar puncture headache with some associated nausea and vomiting, but no abdominal pain. Her headache has been persistent. She was noted to be neutropenic and was admitted for hydration, blood product transfusion, prophylactic antibiotics. She had mild elevation of her bilirubin that spurred a gallbladder ultrasound which demonstrated stones and gallbladder wall thickening up to 3.6 mm and gallstones. I am asked to weigh in on the question of cholecystitis. PAST MEDICAL HISTORY: A known atrial septal defect. She was recently diagnosed with B-cell ALL and has begun chemotherapy at [facility]. MEDICATIONS: As per admission history and physical. SOCIAL HISTORY: Negative tobacco. Negative daily alcohol. She is a Syrian speaker. REVIEW OF SYSTEMS: Noncontributory. PHYSICAL EXAMINATION: Temperature is 36.7, pulse is 78, blood pressure is 94/68. She is in no acute distress. Directed abdominal examination is benign without a Zamora's sign, without right upper quadrant tenderness. LABS: Platelet count early this morning was 15,000, hematocrit was 26.8, white blood cell count was 0.3. Chemistries demonstrate mild elevation of total bilirubin between 2.7 and 3, but a normal direct bilirubin of 0.3, otherwise LFTs are normal except for an ALT on presentation 42 but is now normal. There is no lipase. IMAGING: I have reviewed the films and the report. IMPRESSION AND PLAN: A 31-year-old female with leukemia, currently neutropenic, admitted with symptoms that are most consistent with a post lumbar puncture headache who is currently pancytopenic. I think it is unlikely that she has acute cholecystitis on top of all these other problems. Her gallbladder wall thickening in this case is fairly nonspecific, gallstones are very likely incidental. However, given her neutropenia and fragility at this point, and I do think undiagnosed acute cholecystitis would be a disaster for her and I have therefore ordered a HIDA scan. If the HIDA scan shows visualization of her gallbladder, we can be confident that she does not have acute cholecystitis. She does have some aspect of possible liver dysfunction given the elevated indirect bilirubin, but I would not think it is so high that the HIDA scan would not process the radioisotope. I will follow up after the HIDA scan.
--- NOTE | 2017-05-13 21:27 | DRSVH ---
PROCEDURE: X-RAY CHEST ONE VIEW ([id number]) INDICATIONS: Catheter tip placement TECHNIQUE: One view of the chest was acquired. COMPARISON: None. FINDINGS: Surgical changes and devices: Right arm PICC is present, tip of which is in the mid SVC. Lungs and pleura: No pleural effusions or pneumothorax. Lungs are clear. Mediastinum: Mediastinal contours appear normal. Heart size is normal. Bones and chest wall: No suspicious bony lesions. Overlying soft tissues appear unremarkable. IMPRESSION: No acute process. Dictated by: Dipesh Ty M.D. on 05/13/2017 at 21:25 Approved by: Dipesh Ty M.D. on 05/13/2017 at 21:25
--- NOTE | 2017-05-13 21:52 | CONS ---
[address] [address] CONSULTATION REPORT PATIENT: NEREIDA CONTRERAS : 1985 MR#: [id number] ADMIT: 05/12/2017 JOB ID: [id number] DATE OF SERVICE: 04/23/2017 NOTE: Followup on the earlier consult today on the patient. She did have her HIDA scan, and much to my surprise, this demonstrated by report from Dr. Ty nonvisualization of the gallbladder, which is basically pathognomonic for cholecystitis. I have discussed the situation with Dr. Rodgers and also Dr. Hampton, the night hospitalist. The literature suggested this is an uncommon occurrence and the general recommendation would be to treat her infection with antibiotics until she was no longer neutropenic and then plan to do a laparoscopic cholecystectomy. Dr. Rodgers will discuss the case with the oncologist at [facility] first thing tomorrow morning to see whether they have any experience with this or have a different recommendation. Of course, if she were to decompensate with a septic picture, one would have to be concerned that we would just need to move ahead with laparoscopic cholecystectomy. I will follow up with her in the morning.
[2017-05-14] VITALS (10 sets, daily range): BP systolic 91–106; BP diastolic 55–67; PULSE 75–86; RESP 14–17; O2SAT 97–100
[2017-05-14 05:46] LABS: Mean Corpuscular Hemoglobin 28.9 pg (27.0-35.0); Mean Corpuscular Volume 82.4 fL (81-100)
[2017-05-14 05:47] LABS: Platelet Count 10 bil/L (150-400)
--- NOTE | 2017-05-14 06:15 | NUR ---
Pain Patient resting in bed most of shift. by bedside. Patient's Vitals stable. 98% on room air. Patient states she is not having any pain at this time. Chemo today. A&OX3. Care continues.
--- NOTE | 2017-05-14 08:55 | PCM.PNMED ---
Subjective Date of Service May 14, 2017 Subjective Patient seen and examined today. Patient complains of mild abdominal pain. No nausea or vomiting. Vitals stable Patient was supposed to get chemotherapy today after the platelet infusion. Order for cross and match was put in for HLA typing and irradiation, however it didnt communicate with the blood works. Patient to get platelets today after blood works arranges the plt. HIDA scan noticed, surgery aware, ID informed. Exam Vital Signs Vital Sign - Last Date Time Temp Pulse Resp B/P Pulse Ox O2 Delivery O2 Flow Rate FiO2 05/14/17 05:00 37.1 81 16 106/67 100 Room Air Intake and Output 05/13/17 05/13/17 05/14/17 Cumulative From/Thru 15:00 23:00 07:00 05/11/17 22:18 - 05/14/17 06:42 Intake Total 0 ml 3646 ml 8673 ml Output Total 1200 ml 2350 ml 5500 ml Balance -1200 ml 1296 ml 3173 ml Intake Oral 0 ml 1600 ml 3175 ml IV Total 2046 ml 5498 ml Output Urine Total 1200 ml 2350 ml 5500 ml # Voids 1 # Bowel Movements 0 0 0 Exam General: No acute distress, well-developed, well-nourished, appropriately interactive Cardiovascular: Regular rate and rhythm with no murmurs, rubs, or gallops appreciated Pulmonary: Clear to auscultation bilaterally with no crackles, wheezes, or rhonchi. Normal respiratory effort with no use of accessory muscles. Abdomen: Bowel tones present. Soft, nontender, nondistended.Epigastric pain on deep palpation Extremities: No clubbing, cyanosis, edema, or lymphadenopathy appreciated. Neurological: Cranial nerves grossly intact. Normal muscle strength, tone, and bulk. Reflexes, coordination, and sensory function within normal limits. Lab and Diagnostics Result Diagram: 05/14/1752405/14/17524 X-Rays, CTs and MRIs CT HEAD No Contrast: CONCLUSION: Normal non-contrast scan of the head. Additional Diagnostics HIDA scan IMPRESSION: 1. Nonvisualization of the gallbladder, consistent with cholecystitis, as seen by ultrasound examination dated 05.12.17. Assessment & Plan Ms. Castorena is a 31 female with past medical history of B-cell acute lymphoblastic leukemia, congenital heart murmur with ASD with arin-ak-veakg shunt who presents with headache. Neutropenia - secondary to chemotherapy + Leukomia - afebrile - neupogen being given Q24 hrs - on prophylactic abx as listed below - Dr. 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 - Dr. Rodgers on board, recs : She is to receive daily G-CSF (Granix) 480 mcg subcutaneously. This began on Wednesday, May 10, 2017. Her hospitalization was likely due to a post lumbar puncture headache, which is better controlled at this time. Day 11 treatment with vincristine 2 mg IV, rituximab 375 mg/m2 IV, and 100 mg intrathecal cytarabine is due tomorrow. She is also due to begin dexamethasone 40 mg daily, beginning May 14 through May 17, 2017. Her next PICC dressing change is due on May 17, 2017. She will need a platelet transfusion prior to her intrathecal cytarabine tomorrow. Goal platelets for intrathecal therapy are 50,000, or greater. - Started daily GCSF 480 mcg subcutaneously on 05/10, QDaily - Acyclovir 800 mg b.i.d. for prophylaxis. - Fluconazole 200 mg daily for prophylaxis. - Levofloxacin 750 mg daily for prophylaxis. - Bactrim DS b.i.d. on Mondays and Tuesdays for prophylaxis. - Dexamethasone 40 mg daily x4 days, for May 14 through May 17. Headache, Present on admission, resolved - likely secondary to recent lumbar puncture in uw, completely resolved now Pancytopenia. Present on admission. Ongoing Secondary to Leukemia - Platelet transfusion in ED. - Continue to monitor - Blood cultures pending Secundum atrial septal defect: - a congenital defect with left to right shunt, evidence of severe right ventricular pressures with severe right atrial enlargement, but normal bilateral ventricular function with a left ventricular ejection fraction greater than 60% - Given that she is likely to be neutropenic and thrombocytopenic for a prolonged time, surgical repair will be deferred until she is no longer receiving chemotherapy. Avoid dramatic fluid shifts and volume overload when giving chemotherapy Fertility concerns: - The patient is a 3 para 3, but is hoping that she could become following treatments. As per Dr. Rodgers : Recommend Lupron 11.5 mg deep IM on May 17, 2017, with initiation of 10 days of letrozole 5 mg daily and norethindrone 5 mg daily to start at that time Dispo: Likely to stay > 2 midnights due to complexity of disease process and treatment associated with it . Code Status: Full Code Dispo: Pending clinical improvement post chemo VTE Mechanical Devices: Intermittant Pneumatic CD Resuscitation Status: CPR: Attempt Resuscitation Time spent 35 mins Clarence Whittington MD May 14, 2017 08:55
[2017-05-14] MEDS: levoFLOXacin 750 mg Tablet PO SCH (09:24)
[2017-05-14] MEDS: Trimethoprim-Sulfa 160 mg-800 mg Tablet PO SCH ×2 (09:24→21:48)
[2017-05-14] MEDS: Acyclovir 800 mg Tablet PO SCH ×2 (09:24→21:48)
[2017-05-14] MEDS: Ondansetron 2 mg/mL 2 mL Inj IVPUSH PRN (10:48)
--- NOTE | 2017-05-14 10:54 | NUR ---
JONES & N/V / Granix admin Pt c/o JONES and NV after breakfast. Zofran given. JONES seems to subside once laying back down. Granix instructions states "Do not give within 24hrs pre or post chemo administration." Per Gary Pharmacist OK to give Granix today as ordered by .
[2017-05-14] MEDS ORDERED: VINCRISTINE IV ONE (11:45)
[2017-05-14] MEDS ORDERED: SODIUM CHLORIDE 0.9% IV ONE ×2 (11:45→12:00)
[2017-05-14] MEDS ORDERED: RITUXIMAB IV ONE (12:00)
[2017-05-14] MEDS: 0.9% Sodium Chloride 1,000 ML IV SCH ×2 (12:42→12:56)
--- NOTE | 2017-05-14 15:42 | PROG NOTE ---
[address] [address] PROGRESS NOTE PATIENT: NEREIDA CONTRERAS : 1985 MR#: [id number] ADMIT: 05/12/2017 JOB ID: [id number] DATE: 05/14/2017 PROGRESS NOTE: The patient continues to be afebrile, not tachycardic, acceptable blood pressure, without progressive abdominal complaints or findings on examination. She remains neutropenic, actually pancytopenic and is receiving platelet transfusion. We will touch base with Dr. Rodgers today, but at this point, we will plan to continue treating her acute cholecystitis with intravenous antibiotics and hold off on surgery.
--- NOTE | 2017-05-14 16:15 | PROG NOTE ---
[address] [address] PROGRESS NOTE PATIENT: NEREIDA CONTRERAS : 1985 MR#: [id number] ADMIT: 05/12/2017 JOB ID: [id number] DATE: 05/14/2017 REASON FOR FOLLOWUP: Possible cholecystitis in the setting of ALL. INTERVAL HISTORY: Over the night, the patient reports orthostatic headaches which have been a continuing problem since her intrathecal methotrexate, May 09, as well as some lower abdominal, almost suprapubic pain. She has had some degree of nausea and vomiting which just started this morning and was not previously a problem. Interestingly, she was able to have breakfast but is going to pass on lunch because of the nausea and vomiting. She has had no fevers, chills, and no right upper quadrant pain at all. No new pulmonary symptoms either. PHYSICAL EXAMINATION: Reveals an afebrile woman in no distress at this point. Temp 36.3, pulse 80, respiratory rate 14. Blood pressure 96/61, saturating well on room air. Examination of the head unremarkable. Oral cavity continues to be benign. No pharyngitis noted. Lungs relatively clear. Cardiac tones: No new murmur. Her right upper quadrant remains entirely benign. She has some very mild suprapubic tenderness with deep palpation. LABORATORIES: Include white count 200 total today. Our last diff was 12% polys so her neutrophil count is approximately 24 today. Her hematocrit 23. Platelet count 10,000, which is also dropping. Creatinine 0.34. LFTs normal. Urinalysis without white cells. Micro studies include negative blood cultures. The HIDA scan of the gallbladder was done and showed nonvisualization of the gallbladder, which was consistent with cholecystitis. Subsequently, a chest x-ray has been done which remains completely benign. Recall that the patient did have an ultrasound of the gallbladder a couple days ago which showed gallstones with some minimal wall thickening possibly consistent with cholecystitis. IMPRESSION: This patient, somewhat surprisingly, does appear to have cholecystitis in the setting of her acute lymphocytic leukemia. She continues to have really no right upper quadrant pain and it is unclear whether the nausea and vomiting, which just started late this morning, are related to gallbladder disease. I note that both Dr. Rodgers, the Heme/Onc doctor, and Dr. Christopher, the surgeon, agree that we should try and defer any surgery for her gallbladder disease until after her white counts have recovered as well as her platelet count, of course, and I wholeheartedly agree with that. Note that the patient is already on daily levofloxacin as well as intermittent Bactrim. Levofloxacin in and of itself is a reasonable agent used as an alternative therapy for cholecystitis, and given the patient's complete lack of toxicity, I think it is reasonable to continue using levofloxacin as our drug for the cholecystitis at this point. Note that she is also on intermittent Bactrim as well as fluconazole and acyclovir. RECOMMENDATIONS: 1. Continue with levofloxacin and the other prophylactic antibiotics. 2. Will continue to monitor with you.
--- NOTE | 2017-05-14 17:58 | NUR ---
Chemo Chemo complete at 1745. Completed with no notable issues. No c/o nausea or pain. Pt states that she is doing ok. at bedside helps with care. c/o JONES when standing or sitting up at times. Sleepy most of day laying in bed. Care continues
[2017-05-15] VITALS (12 sets, daily range): BP systolic 94–103; BP diastolic 56–65; PULSE 68–95; RESP 16–18; O2SAT 97–100
[2017-05-15] MEDS: 0.9% Sodium Chloride 1,000 ML IV SCH ×2 (00:21→09:41)
--- NOTE | 2017-05-15 03:35 | NUR ---
Patient has denied nausea and pain this evening. at bedside helping with needs. No issues over night.
[2017-05-15 08:06] LABS: Mean Corpuscular Hemoglobin 29.6 pg (27.0-35.0); Mean Corpuscular Volume 81.3 fL (81-100)
[2017-05-15 08:55] LABS: Platelet Count 5 bil/L (150-400)
[2017-05-15] MEDS: Acyclovir 800 mg Tablet PO SCH ×2 (09:41→20:58)
[2017-05-15] MEDS: levoFLOXacin 750 mg Tablet PO SCH (09:41)
--- NOTE | 2017-05-15 11:00 | PROG NOTE ---
[address] [address] PROGRESS NOTE PATIENT: NEREIDA CONTRERAS : 1985 MR#: [id number] ADMIT: 05/12/2017 JOB ID: [id number] DATE: 05/15/2017 REASON FOR FOLLOWUP: Cholecystitis occurring in the setting of neutropenia and profound thrombocytopenia due to ALL. INTERVAL HISTORY: This unfortunate 31-year-old woman is in the middle of receiving chemotherapy for ALL which includes both systemic and intrathecal chemo. She was admitted because of a spinal headache occurring after intrathecal methotrexate last week, but during the course of her admission she had some nausea, vomiting which prompted right upper quadrant ultrasound which was suspicious for cholecystitis. A HIDA scan was then done which showed nonvisualization of the gallbladder and the patient has been presumed on that basis to have acute cholecystitis. Because she is nontoxic and really has nothing in the way of right upper quadrant pain she is being managed conservatively at this point. Surgery would be difficult of course in any event because she has very low white count and platelets. Today, the patient was seen in conjunction with the entire rounding team as well as a hockey scout. The patient has no fevers, chills, sweats, cough, or abdominal pain. No nausea, vomiting, diarrhea. In fact, just had breakfast and was eating a big apple when we came in the room. PHYSICAL EXAMINATION: Reveals an afebrile woman. Temp 36.9, pulse 78, respiratory rate 16, blood pressure 97/56. She is saturating well on room air. She is in no distress. Lungs are clear. Cardiac tones without murmur. Abdomen soft and nontender. Absolutely no right upper quadrant tenderness once again. LABORATORIES: Include white count 200, platelets 5000 with a platelet transfusion being awaited. Creatinine 0.39. LFTs normal. Blood cultures continue negative. No new imaging available. 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 She, at this point, is eating a full diet and snacks as well without any nausea, vomiting, diarrhea, or right upper quadrant pain. Given the findings on the HIDA there is 90% or more probability that she does have acute cholecystitis, but if so this is almost entirely asymptomatic and I agree with recommendations to wait on surgery or any other intervention until her acute lymphocytic leukemia is in remission. RECOMMENDATIONS: 1. Will continue with levo and the other prophylactic antibiotics including acyclovir, Septra, and fluconazole. 2. We will continue to follow with you. 3. There is no reason from an Infectious Disease point of view to keep the patient in the hospital any longer, but obviously she needs a better platelet count and her intrathecal chemo as well before discharge.
--- NOTE | 2017-05-15 12:37 | PCM.PNSURG ---
Subjective Date of Service: May 15, 2017 Date of Service: May 15, 2017 Visit Information: Reason for Visit Headache, Pancytopenia Surgery/Surgery Date Post-Op Day # Date of Admission: May 12, 2017 at 00:50 Hospital Day # 4 Subjective: Seen with order tracer this a.m. No acute overnight events. One instance of emesis yesterday at breakfast but tolerated general diet for lunch & dinner. Currently denies significant related pain, nausea, &/or vomiting. She is able to ambulate around her room carefully to avoid falls. Medical Team is the Attending. Infectious Disease is managing her her antibiotic and antiviral medications. Oncology is monitoring her cancer with plans for treatment this afternoon. Gastrointestinal: Tolerating Oral Feedings, No N/V Pain Management: No or Minimal Pain Postop Activity: Ambulating in Room Only Objective Vital Sign- Last 8 Hours Date Time Temp Pulse Resp B/P Pulse Ox O2 Delivery O2 Flow Rate FiO2 05/15/17 09:45 78 05/15/17 08:21 36.9 16 97/56 99 Room Air 05/15/17 04:40 36.7 80 16 96/61 100 Room Air Intake and Output- Last 8 Hour 05/15/17 Cumulative From/Thru 07:00 05/11/17 22:18 - 05/15/17 06:15 Intake Total 1779 ml 69477 ml Output Total 1300 ml 7400 ml Balance 479 ml 4847 ml Intake Oral 800 ml 4395 ml IV Total 979 ml 7852 ml Output Urine Total 1300 ml 7400 ml # Voids 1 # Bowel Movements 0 0 General: Alert, Oriented X3, Cooperative Lungs: Clear to Auscultation Heart: Exam Unremarkable Abdomen: Soft, Non-tender, Non-distended, Normoactive bowel tones Extremities: Thigh&Calf Soft/Nontender Neuro: Normal Speech Result Diagram: 05/15/17 0756 05/15/17 0756 Assessment & Plan Impression Primary Diagnoses: 1. Acute lymphoblastic leukemia (ALL): Pancytopenia 2. 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 Continue conservative medical treatment & infection prophylaxis. 2. Pain management as needed. 3. General diet as tolerated. 4. Repeat LFTs with a.m. draw. 5. Defer treatment to Medicine/ID/Oncology. 6. We will continue to follow peripherally. VTE Prophylaxis: SCDs Resuscitation Status: CPR: Attempt Resuscitation Ken Monreal PA-C May 15, 2017 12:37
--- NOTE | 2017-05-15 12:49 | NUR ---
MD NOTIFICATION Dr. Rodgers made aware X 2 RE: Platelet count and H/H results. Dr. Rodgers to contact blood bank in [place] to order specialized blood products. He will call back when he gets more information from the blood bank. Transfusions pending at this time till blood products are available. Addendum: 05/15/17 at 1430 by JENNI MICHAEL RN BLOOD Per blood bank PRBC leukocyte reduced, irradiated is available at this time. Dr. Rodgers made aware. New orders to transfuse 2 units of PRBC's received. Platelet transfusion is pending till Dr. Rodgers notifies us RE: Availability of the blood product.
--- NOTE | 2017-05-15 13:03 | PCM.PNMED ---
Subjective Date of Service May 15, 2017 Subjective Pt denies any bleeding in urine, stool, or skin sites. Denies fever/chills. History through chief innovation officer. Exam Vital Signs Vital Sign - Last Date Time Temp Pulse Resp B/P Pulse Ox O2 Delivery O2 Flow Rate FiO2 05/15/17 12:46 36.8 95 16 94/57 98 Room Air Intake and Output 05/14/17 05/14/17 05/15/17 Cumulative From/Thru 15:00 23:00 07:00 05/11/17 22:18 - 05/15/17 06:15 Intake Total 1795 ml 1779 ml 23299 ml Output Total 600 ml 1300 ml 7400 ml Balance 1195 ml 479 ml 4847 ml Intake Oral 420 ml 800 ml 4395 ml IV Total 1375 ml 979 ml 7852 ml Output Urine Total 600 ml 1300 ml 7400 ml # Voids 1 # Bowel Movements 0 0 0 Exam General: No acute distress, well-developed, well-nourished, appropriately interactive Cardiovascular: Regular rate and rhythm with no murmurs, rubs, or gallops appreciated Pulmonary: Clear to auscultation bilaterally with no crackles, wheezes, or rhonchi. Normal respiratory effort with no use of accessory muscles. Abdomen: Bowel tones present. Soft, nontender, nondistended.Epigastric pain on deep palpation Extremities: No clubbing, cyanosis, edema, or lymphadenopathy appreciated. Neurological: Cranial nerves grossly intact. Normal muscle strength, tone, and bulk. Reflexes, coordination, and sensory function within normal limits. IVs and Medications Medications Reviewed: Medications were reviewed in detail Lab and Diagnostics Result Diagram: 05/15/17 0756 05/15/17 0756 X-Rays, CTs and MRIs CT HEAD No Contrast: CONCLUSION: Normal non-contrast scan of the head. Additional Diagnostics HIDA scan IMPRESSION: 1. Nonvisualization of the gallbladder, consistent with cholecystitis, as seen by ultrasound examination dated 05.12.17. Assessment & Plan Ms. Castorena is a 31 female with past medical history of B-cell acute lymphoblastic leukemia, congenital heart murmur with ASD with [id number] shunt who presents with headache. Pancytopenia. Present on admission. Ongoing Secondary to Leukemia. - Platelet transfusion in ED. - Continue to monitor for bleeding, fevers. - 05/15- Ordered another 2u Plts/2u RBC from [facility], arranged by Dr. Rodgers. Neutropenia - secondary to chemotherapy - afebrile - neupogen Q24 hrs - on prophylactic abx as listed below - Hem/Onc- Dr. Rodgers following. Elevated bilirubin 2/2 acute cholecystitis - Total bili elevated, direct normal - HIDA scan +ve for acute cholecystitis - Surgery on board, to continue conservative management with IV abx as patient is not septic till the neutropenia improves and then lap surgery - ID aware, await recs if change in abx needed - Follow LFT's. 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 - Started daily GCSF 480 mcg subcutaneously on 05/10, QDaily - Acyclovir 800 mg b.i.d. for prophylaxis. - Fluconazole 200 mg daily for prophylaxis. - Levofloxacin 750 mg daily for prophylaxis. - Bactrim DS b.i.d. on Mondays and Tuesdays for prophylaxis. - Dexamethasone 40 mg daily x4 days, for May 14 through May 17. - Dr. Rodgers following, f/u updated recs. 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 Avoid dramatic fluid shifts and volume overload when giving chemotherapy Fertility concerns: - The patient is a 3 para 3, but is hoping that she could become following treatments. As per Dr. Rodgers : Recommend Lupron 11.5 mg deep IM on May 17, 2017, with initiation of 10 days of letrozole 5 mg daily and norethindrone 5 mg daily to start at that time Dispo: Likely to stay > 2 midnights due to complexity of disease process and treatment associated with it . Code Status: Full Code Dispo: Pending clinical improvement post chemo VTE Prophylaxis: SCDs VTE Mechanical Devices: Intermittant Pneumatic CD Resuscitation Status: CPR: Attempt Resuscitation Rolly Rodriguez MD May 15, 2017 13:03
[2017-05-15] MEDS ORDERED: Hydrocortisone 125 mg/mL 2 mL Inj IV ONE (14:55)
--- NOTE | 2017-05-15 15:00 | NUR ---
Assumed Care of Pt 1500 assumed care of pt; Zambian speaking only, A&Ox3, able to NOLAND, ind in room with steady gait to BR, no c/o pain, BP low, HR 90's, RA, SPo2 98%. Blood products to start administration. Care ongoing.
--- NOTE | 2017-05-15 15:06 | NUR ---
ACTIVITY Patient denies pain. Tolerating liquids PO and her diet well. Had 1 episode of emesis after taking her antibiotics. Patient stated and attributed her vomiting to the antibiotics. Denies SOB. Denies dizziness/lightheadedness. No signs/symptoms of bleeding noted. Ambulated with her in the hallway and tolerated activity.
[2017-05-15] MEDS ORDERED: Hydrocortisone 50 mg/mL 2 mL Inj IV ONE (15:15)
[2017-05-15] MEDS ORDERED: 0.9% Sodium Chloride 250 ML ONE ×2 (16:11→20:23)
--- NOTE | 2017-05-15 17:54 | NUR ---
Social Work- Readiness for Discharge/Multidisciplinary Rounds Data: EMR reviewed. Pt is on day 3 of hospitalization. Pt discussed at bedside multidisciplinary rounds, pt is not medically stable for discharge. Pt requested to speak with HOLE DIGGER TRUCK DRIVER in bedside rounds. Review of RCA notes indicate that pt has been enrolled in [facility] Medicaid. HOLE DIGGER TRUCK DRIVER met with pt and with the assistance of the medical doctor md. Pt and requested information regarding low income housing as there rent was just raised and they are going to have to move. Pt's is not working at this time. SW provided list of "Housing to Try in [facility]," pt and appreciative. No additional discharge needs identified. SW will continue to follow for needs as they arise. Assessment: Pt who is independent at baseline. Plan: Housing resources provided to pt. Pt likely to d/c home with spouse to transport via POV. No additional discharge needs identified. SW will continue to follow for needs as they arise. GRIFFIN Thurman
[2017-05-16] VITALS (15 sets, daily range): BP systolic 92–105; BP diastolic 55–65; PULSE 64–85; RESP 16–18; O2SAT 95–98
[2017-05-16] MEDS: 0.9% Sodium Chloride 1,000 ML IV SCH ×4 (04:56→17:50)
--- NOTE | 2017-05-16 06:13 | NUR ---
Transfusion pt received 2nd unit of PRBC's over night, tolerated well, afebrile. Pt denies any pain and overall states that she feels well.
[2017-05-16 06:45] LABS: Mean Corpuscular Hemoglobin 29.5 pg (27.0-35.0); Mean Corpuscular Volume 78.9 fL (81-100)
[2017-05-16 07:09] LABS: Platelet Count 4 bil/L (150-400)
--- NOTE | 2017-05-16 09:00 | PROG NOTE ---
[address] [address] PROGRESS NOTE PATIENT: NEREIDA CONTRERAS : 1985 MR#: [id number] ADMIT: 05/12/2017 JOB ID: [id number] DATE: 05/15/2017 SUBJECTIVE: The patient is a 31-year-old woman with B-cell ALL, [place] chromosome negative. She received vincristine and Rituxan yesterday. She is resting comfortably this morning. Abdominal pain is much improved. No significant headaches at this time. She has been afebrile. OBJECTIVE: Vitals: T 36.7, P 80, R 16, BP 96/61. O2 saturation 100% on room air. HEENT: Conjunctivae pale. Mucous membranes slightly dry. No oral lesions. Chest is clear. Cardiac exam regular rate and rhythm. Abdomen benign. Extremities no edema. A couple of scattered ecchymoses. LABORATORIES: WBC 0.2, hemoglobin 7.6, hematocrit 20.9%, platelets 5000. Sodium 133, potassium 4.0. BUN 14, creatinine 0.39. Glucose 117. AST 9, ALT 15, alkaline phosphatase 78, total bilirubin 1.7. ASSESSMENT AND PLAN: 1. B-cell acute lymphoblastic leukemia: The patient is receiving chemotherapy with cycle 1A hyper-CVAD. She was overdue for her intrathecal aamir-C, but this will be delayed until she can get HLA matched irradiated platelets. I am working with [facility] to arrange compatible blood products. She will receive irradiated packed red blood cells today after premedication with Tylenol 650 mg by mouth and hydrocortisone 50 mg IV. Continue prophylactic acyclovir, fluconazole, Bactrim, and Levaquin. 2. Fertility: She is due for Lupron 11.5 mg deep IM on Saturday, May 17, 2017, with initiation of 10 days of letrozole 5 mg daily and 10 days of norethindrone 5 mg daily at that time.
[2017-05-16] MEDS: levoFLOXacin 750 mg Tablet PO SCH (09:11)
[2017-05-16] MEDS: Acyclovir 800 mg Tablet PO SCH ×2 (09:11→20:45)
[2017-05-16] MEDS ORDERED: Hydrocortisone 50 mg/mL 2 mL Inj IV ONE (09:15)
[2017-05-16] MEDS: Ondansetron 2 mg/mL 2 mL Inj IVPUSH PRN (09:19)
--- NOTE | 2017-05-16 10:05 | NUR ---
CRITICAL LABS WBC-0.1 PLATELETS-[address] Rodgers platelets will be ready today from [facility]. 0800 Lab notified. No platelets available at this time. 0900 Per lab platelets will be available before lunch today. Dr. Rodriguez made aware. *Patient is currently on neutropenic precautions.
--- NOTE | 2017-05-16 10:55 | PROG NOTE ---
[address] [address] PROGRESS NOTE PATIENT: NEREIDA CONTRERAS : 1985 MR#: [id number] ADMIT: 05/12/2017 JOB ID: [id number] DATE: 05/16/2017 INFECTIOUS DISEASE FOLLOW UP NOTE: REASON FOR FOLLOWUP: Cholecystitis in the setting of ALL. INTERVAL HISTORY: The patient continues to feel quite well. She notes that she has some nausea when she receives all of her prophylactic meds at once on an empty stomach but otherwise no nausea, no vomiting, no abdominal pain. She further has no fevers, chills or sweats. No evidence of bleeding anywhere and no pulmonary symptoms. PHYSICAL EXAMINATION: Reveals an afebrile woman. Temperature 36.4, pulse 85, respiratory rate 16, blood pressure 101/65, saturating well on room air. No acute distress at all. Alert and oriented and we took history through the mixer helper. Oral cavity negative. Lungs completely clear. Cardiac tones without new murmur. Abdomen benign including completely benign in the right upper quadrant. LABORATORIES: Include white count 100, platelet count 4000, creatinine 0.35. LFTs remain normal. No new imaging to report. IMPRESSION: This patient continues to get along quite well despite what appears to be cholecystitis in the face of profound neutropenia and thrombocytopenia. As of yet, there is no evidence of ongoing systemic infection nor is her gallbladder disease symptomatic. Luckily, she also has no bleeding. RECOMMENDATION: 1. Continue with prophylactic acyclovir, fluconazole, Bactrim and Levaquin. 2. Will continue to watch this patient with you in the hospital as she remains at extraordinary risk for infection given her neutrophil count which is basically at this point 0.
[2017-05-16] MEDS ORDERED: 0.9% Sodium Chloride 250 ML ONE (11:31)
[2017-05-16 12:36] LABS: Bilirubin, Direct 0.3 mg/dL (0.0-0.3)
[2017-05-16] MEDS ORDERED: 0.9% Sodium Chloride 100 ML ONE (12:37)
--- NOTE | 2017-05-16 13:14 | PCM.PNMED ---
Subjective Date of Service May 16, 2017 Subjective Pt rcvd 2u pRBC yesterday. Scheduled to get 2u Plts today. Pt had episode of nausea overnight. Exam Vital Signs Vital Sign - Last Date Time Temp Pulse Resp B/P Pulse Ox O2 Delivery O2 Flow Rate FiO2 05/16/17 13:00 36.8 71 18 92/56 05/16/17 10:22 98 Room Air Intake and Output 05/15/17 05/15/17 05/16/17 Cumulative From/Thru 15:00 23:00 07:00 05/11/17 22:18 - 05/16/17 06:22 Intake Total 2040 ml 1060 ml 52327 ml Output Total 1450 ml 1050 ml 9900 ml Balance 590 ml 10 ml 5447 ml Intake Oral 700 ml 5095 ml IV Total 1690 ml 50 ml 9592 ml Packed Cells 350 ml 310 ml 660 ml Output Urine Total 1450 ml 1050 ml 9900 ml # Voids 1 # Bowel Movements 1 0 1 Exam General: No acute distress, well-developed, well-nourished, appropriately interactive Cardiovascular: Regular rate and rhythm with no murmurs, rubs, or gallops appreciated Pulmonary: Clear to auscultation bilaterally with no crackles, wheezes, or rhonchi. Normal respiratory effort with no use of accessory muscles. Abdomen: Bowel tones present. Soft, nontender, nondistended.Epigastric pain on deep palpation Extremities: No clubbing, cyanosis, edema, or lymphadenopathy appreciated. Neurological: Cranial nerves grossly intact. Normal muscle strength, tone, and bulk. Reflexes, coordination, and sensory function within normal limits. IVs and Medications Medications Reviewed: Medications were reviewed in detail Lab and Diagnostics Result Diagram: 05/16/17 0540 05/16/17 0540 X-Rays, CTs and MRIs CT HEAD No Contrast: CONCLUSION: Normal non-contrast scan of the head. Additional Diagnostics HIDA scan IMPRESSION: 1. Nonvisualization of the gallbladder, consistent with cholecystitis, as seen by ultrasound examination dated 05.12.17. Assessment & Plan Ms. Castorena is a 31 female with past medical history of B-cell acute lymphoblastic leukemia, congenital heart murmur with ASD with [id number] shunt who presents with headache. Pancytopenia. Present on admission. Ongoing Secondary to Leukemia. - Platelet transfusion in ED. - Continue to monitor for bleeding, fevers. - 05/15- Ordered another 2u Plts/2u RBC from [facility] in [place] , arranged by Dr. Rodgers. Continue prophylactic acyclovir, fluconazole, Bactrim, and Levaquin. Neutropenia - secondary to chemotherapy - afebrile - neupogen Q24 hrs - on prophylactic abx as listed below - Hem/Onc- Dr. Rodgers following. See above. - ID following, Dr. Lara. Elevated bilirubin 2/2 acute cholecystitis - Total bili elevated, direct normal - HIDA scan +ve for acute cholecystitis - Surgery on board, to continue conservative management with IV abx as patient is not septic till the neutropenia improves and then lap surgery - ID aware, await recs if change in abx needed - Follow LFT's. 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 - Started daily GCSF 480 mcg subcutaneously on 05/10, QDaily - Acyclovir 800 mg b.i.d. for prophylaxis. - Fluconazole 200 mg daily for prophylaxis. - Levofloxacin 750 mg daily for prophylaxis. - Bactrim DS b.i.d. on Mondays and Tuesdays for prophylaxis. - Dexamethasone 40 mg daily x4 days, for May 14 through May 17. - Dr. Rodgers following, f/u updated recs. Fertility concerns: - The patient is a 3 para 3, but is hoping that she could become following treatments. As per Dr. Rodgers : Lupron 11.5 mg deep IM on May 17, 2017, with initiation of 10 days of letrozole 5 mg daily and norethindrone 5 mg daily to start at that time Headache, Present on admission, resolved - likely secondary to recent lumbar puncture in , completely resolved now Secundum atrial septal defect: - a congenital defect with left to right shunt, evidence of severe right ventricular pressures with severe right atrial enlargement, but normal bilateral ventricular function with a left ventricular ejection fraction greater than 60% - Given that she is likely to be neutropenic and thrombocytopenic for a prolonged time, surgical repair will be deferred until she is no longer receiving chemotherapy. Avoid dramatic fluid shifts and volume overload when giving chemotherapy Dispo: Likely to stay > 2 midnights due to complexity of disease process and treatment associated with it . Code Status: Full Code Dispo: Pending clinical improvement post chemo VTE Prophylaxis: SCDs VTE Mechanical Devices: Intermittant Pneumatic CD Resuscitation Status: CPR: Attempt Resuscitation Rolly Rodriguez MD May 16, 2017 13:14
--- NOTE | 2017-05-16 14:00 | NUR ---
PLATELET/MD NOTIFICATION Premedicated with Tylenol 650 mg PO and Hydrocortisone 50 mg IV. 2 units of HLA, apharesed, irradiated platelets transfused without any adverse reactions noted. Patient denies itching, chest pain or SOB. Platelet count after the transfusion was 47. Dr. Rodgers made aware. Patient is cleared to have her intrathecal chemo after her platelet infusion. IR and pharmacist-Oscar made aware RE: Chemo. Patients is aware RE: Plan of care.
[2017-05-16] MEDS ORDERED: SODIUM CHLORIDE INTRATHEC ONE ×2 (16:30→17:00)
[2017-05-16] MEDS ORDERED: CYTARABINE INTRATHEC SCH ×2 (16:30→16:45)
[2017-05-16] MEDS ORDERED: CYTARABINE INTRATHEC ONE (16:30)
[2017-05-16] MEDS ORDERED: SODIUM CHLORIDE IV SCH (16:30)
--- NOTE | 2017-05-16 16:31 | NUR ---
TO RADIOLOGY Patient transferred to radiology via a hospital bed for inthratecal chemo. Professor Of Marketing is at the bedside.
[2017-05-16] MEDS ORDERED: SODIUM CHLORIDE INTRATHEC SCH (16:45)
--- NOTE | 2017-05-16 18:01 | DRSVH ---
PROCEDURE: X-RAY LUMBAR PUNCTURE W/CHEMO RX INJ. ([id number]) INDICATIONS: CYTARBINE INTRATHECAL TECHNIQUE: The indications, alternatives, benefits, risks, and complications were explained to the patient. Bec ause of severe thrombocytopenia, the patient received platelet transfusion immediately prior to lumba r puncture. Post transfusion platelet 47; INR 1.0. I explained to the patient that she has increased risk for bleeding, but the procedure is medically necessary based on my conversation with Dr. Rodgers . Dr. Rodgers assured me that the platelet level is adequate for this procedure which is performed at cancer care centers in other institutions with similar platelet counts. Written informed consent was obtained and placed in the chart. The patient was placed in a prone position on the fluoroscopy tabl e, and a level was chosen for percutaneous access under fluoroscopic guidance. The site was prepped and draped in a sterile fashion. After local anaesthetic, a spinal needle was then used to enter the intrathecal space, with return of cerebrospinal fluid. After obtaining sufficient fluid, the needle was then withdrawn, and a bandage applied to the punctur e site. FINDINGS: Puncture level: L3-L4 Needle: Spinal needle. Opening pressure: Not requested. CSF volume and description: 9 mL (tube one 7 mL and tube two 2 mL), clear Medications: 1% lidocaine for anaesthesia. Intrathecal infusion of chemotherapy therapeutic agents p er Dr. Shelton Rodgers. An oncology nurse was present to assist the procedure. Complications: None Laboratories: As ordered by referring clinician. IMPRESSION: Successful fluoroscopically guided lumbar puncture and intrathecal chemotherapeutic agen t infusion. Dictated by: Jer Burton M.D. on 05/16/2017 at 17:40 Approved by: Jer Burton M.D. on 05/16/2017 at 17:59
--- NOTE | 2017-05-16 18:29 | NUR ---
BACK FROM RADIOLOGY Post intrathecal chemo. Patient denies pain/nausea/SOB. Bandaid dressing noted in her back. Patient will be on bedrest till 2100. HOB up 20-45 degrees for comfort per orders. Encouraged to increase fluid intake to 0019-7971 ml for 24 hrs. Instructed patient via the park interpreter at the bedside and she verbalized understanding.
[2017-05-16 18:49] LABS: APPEARANCE,CSF CLEAR (CLEAR); COLOR,CSF COLORLESS (COLORLESS); WHITE BLOOD CELL,CSF 3 /mm3 (0-5)
[2017-05-16] MEDS ORDERED: Codeine-APAP 30-300 mg Tablet PO PRN (19:05)
[2017-05-17] VITALS (8 sets, daily range): BP systolic 90–107; BP diastolic 59–74; PULSE 64–77; RESP 15–16; O2SAT 96–100
[2017-05-17] MEDS: 0.9% Sodium Chloride 1,000 ML IV SCH ×2 (03:35→14:29)
--- NOTE | 2017-05-17 04:55 | NUR ---
Post procedure Pt tolerated intrathecal chemo without headache, pain, nausea. Bedrest maintained until 2100, then able to sit up and eat dinner. Encouraged increased intake of PO fluids, IV fluids infusing. Hourly rounding ongoing.
--- NOTE | 2017-05-17 06:14 | PROG NOTE ---
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 She received vincristine and Rituxan on Saturday. She is due for intrathecal aamir-C see today after receiving platelets. She denies any significant headache. Abdominal pain is well controlled. No fevers. No significant nausea or vomiting. OBJECTIVE: Vitals: T 36.6, P 73, R 16, BP 98/62. HEENT: Conjunctivae pale. Mucous membranes moist. No oral lesions. Nodes: No adenopathy in the neck or axilla. Chest: Clear. Cardiac exam: Regular rate and rhythm. Abdomen: Soft, nontender. Extremities: No edema. 2+ distal pulses. No calf tenderness. LABORATORIES: WBC 0.1, hemoglobin 10.1, hematocrit 27.0%, MCV 79, platelets 4000. ASSESSMENT AND PLAN: 1. B-cell acute lymphoblastic leukemia: The patient is in the midst of chemotherapy with cycle IA hyperCVAD. Once she receives HLA matched irradiated platelets, anticipate intrathecal aamir-C 100 mg today. Please check daily CBC, differential and platelets. 2. Fertility: She is due for Lupron 11.5 mg deep IM on Saturday and we will initiate 10 days of letrozole 5 mg daily and 10 days of norethindrone 5 mg daily at that time. MTDD
[2017-05-17 07:12] LABS: Mean Corpuscular Hemoglobin 28.8 pg (27.0-35.0); Mean Corpuscular Volume 80.6 fL (81-100)
[2017-05-17 07:40] LABS: Platelet Count 33 bil/L (150-400)
--- NOTE | 2017-05-17 08:08 | CCA LTR ---
[facility] [address] [place] [id number] PATIENT: NEREIDA CONTERRAS : 1985 MR#: [id number] DATE: 05/12/2017 JOB ID: [id number] 05/16/2017 To Whom It May Concern: The patient (: [birth year]) is a 31-year-old woman recently diagnosed with acute lymphoblastic leukemia. She has been evaluated both at [facility] and at the [facility], and started on an aggressive chemotherapy regimen known as hyper-CVAD. This will require ongoing treatment both as an inpatient and outpatient, broad-spectrum antibiotic coverage, growth factor support, transfusions, and additional supportive care as indicated. Her immune system will be profoundly suppressed throughout much of her treatment, and she will be unable to work for at least the next six months, possibly longer. Thank you for your understanding in this difficult situation. Shelton Rodgers MD [facility]ITAL[facility]
--- NOTE | 2017-05-17 08:24 | PROG NOTE ---
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 She is receiving chemotherapy with hyper-CVAD. This was initiated on Thursday, May 04, 2017 at the [facility]. Initially 60% of her total white cells were abnormal immature B cells with 21% expressing CD20 on blasts. She received Rituxan initially on May 09, 2017 due to high CD20 expression and pH negative cytogenetics. She received intrathecal methotrexate on May 09, 2017. She returned to [facility], but was admitted to hospital with severe spinal headache on May 12, 2017. In addition, she had some abdominal pain and suggestion of cholecystitis. She has been on prophylactic antibiotics and additional antibiotic coverage due to her neutropenia. She has no abdominal pain at this time. She received additional day 11 vincristine on Sunday, May 14, 2017. She also received additional Rituxan that day. After a platelet transfusion yesterday, she received intrathecal EVA-C 100 mg. She denies any headaches this morning. She has slept well overnight. She is on dexamethasone 40 mg daily through today, and continues growth factor support with daily G-CSF 480 mcg subcutaneously. She hopes to have children in the future, and is due to begin her GnRH agonist today. Note that anti-mullerian hormone level at baseline was 0.425. OBJECTIVE: Vitals: T 36.7, P 68, R 16, BP 107/59. O2 saturation 96% on room air. HEENT: Conjunctivae slightly pale. Mucous membranes moist. No oral lesions. Nodes: No adenopathy in the neck or axilla. Chest: Clear. Cardiac examination: Regular rate and rhythm. A 1/6 systolic ejection murmur across the precordium. Abdomen: Soft, nontender with normoactive bowel tones. No splenomegaly or masses. Extremities: No edema. 2+ distal pulses. A few scattered ecchymoses. No petechiae. LABORATORIES: Sodium 139, potassium 3.9, BUN 20, creatinine 0.34, glucose 230, calcium 8.0, albumin 3.3, total bilirubin 1.5. AST 8, ALT 15, alkaline phosphatase 73. WBC pending, hemoglobin pending, hematocrit pending, platelets pending. ASSESSMENT AND PLAN: 1. B-cell acute lymphoblastic leukemia: As above, initial total white blood cell count, had 60% abnormal immature B cells, of which 21% of her blasts expressed CD20. Her leukemia is [place] chromosome negative. She received course IA hyper-CVAD chemotherapy from May 04 through May 08, 2017, with the addition of Rituxan on May 09 due to PH negative cytogenetics. She received a lumbar puncture with intrathecal methotrexate on May 09, 2017. She has subsequently been hospitalized at [facility] where she received day 11 vincristine 2 mg and Rituxan intravenously on day 11 (May 14, 2017). She has been on dexamethasone 40 mg daily for days 11 through 14 and growth factor support daily with G-CSF 480 mcg subcutaneously for 14 days. She is due for a PICC line dressing change today. Transfusion threshold is a hematocrit less than 26 or platelets less than 10, unless additional platelets are needed to support intrathecal chemotherapy administration. She had a high PRA and is receiving specialized platelets from [facility], which are also irradiated. 2. Fertility and amenorrhea: Baseline AMH was 0.425. Proceed with Lupron 11.5 mg deep subcutaneously (three month dosing) today as well as 10 days of letrozole 5 mg daily and 10 days of norethindrone 5 mg daily to decrease wear side effects. 3. Steroid-induced hyperglycemia: Continue to monitor closely and treat per the hospitalist team. 4. 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 She had a left ventricular ejection fraction greater than 60% with no evidence of pulmonary hypertension. No plan to repair this at this time. She should take aspirin for at least six months, unless her platelets are less than 50,000. Use air locks at all times for blood draws or infusions, and avoid dramatic fluid shifts and volume overload. 5. Disposition: If the patient is discharged, please make sure that she will continue to get daily G-CSF as an outpatient. In addition, we would like to see her immediately in the outpatient setting for daily laboratory studies and transfusion support as indicated. She is due to return to the [facility] for her next course of treatment beginning approximately May 24, 2017.
--- NOTE | 2017-05-17 08:42 | PCM.PNSURG ---
Subjective Date of Service: May 17, 2017 Date of Service: May 17, 2017 Visit Information: Reason for Visit Headache, Pancytopenia Surgery/Surgery Date Post-Op Day # Date of Admission: May 12, 2017 at 00:50 Hospital Day # 6 Subjective: Seen with sign language interpreter this a.m. No acute overnight events. Tolerated general diet for lunch & dinner. Currently denies significant related pain, nausea, &/or vomiting. Reports BM yesterday. She is able to ambulate around her room carefully with assist to avoid falls. Medical Team is the Attending. Infectious Disease is managing her her antibiotics & infection prophylaxis. Oncology is on board. Postop General: No Complaints Gastrointestinal: Good Appetite, Tolerating Oral Feedings, No N/V, Passing Flatus, Passing Stool Pain Management: No or Minimal Pain Postop Activity: Ambulating in Room Only Objective Vital Sign- Last 8 Hours Date Time Temp Pulse Resp B/P Pulse Ox O2 Delivery O2 Flow Rate FiO2 05/17/17 05:16 70 05/17/17 05:00 36.7 68 16 107/59 96 Room Air Intake and Output- Last 8 Hour 05/17/17 Cumulative From/Thru 07:00 05/11/17 22:18 - 05/17/17 05:38 Intake Total 1825 ml 13177 ml Output Total 500 ml 17664 ml Balance 1325 ml 8115 ml Intake Oral 720 ml 5815 ml IV Total 1105 ml 77648 ml Packed Cells 960 ml Platelets 300 ml Output Urine Total 500 ml 65825 ml # Voids 1 # Bowel Movements 0 1 General: Alert, Oriented X3, Cooperative, No Acute Distress Lungs: Clear to Auscultation Heart: Exam Unremarkable Abdomen: Soft, Non-distended, Normoactive bowel tones Extremities: Thigh&Calf Soft/Nontender Neuro: Normal Speech Result Diagram: 05/17/17 0510 05/17/17 0510 Assessment & Plan Impression Primary Diagnoses: 1. Acute lymphoblastic leukemia (ALL): Pancytopenia 2. Acute cholecystitis: HD # 6 Improving with medical treatment recommending continued antibiotics per ID. Surgery is not indicated at this time unless she becomes symptomatic with positive labs. We will require collaboration with Medicine & Oncology with a preferred outpatient elective follow up as needed. Other Medical Conditions: History of Pneumonia Congenital heart murmur with atrial septal defect Problems: Plan 1. Continue conservative medical treatment & infection prophylaxis. 2. Pain management as needed. 3. General diet as tolerated. 4. Repeat LFTs with a.m. draw. 5. Defer treatment to Medicine/ID/Oncology. 6. We will continue to follow peripherally. VTE Prophylaxis: SCDs Resuscitation Status: CPR: Attempt Resuscitation Ken Monreal PA-C May 17, 2017 08:42
[2017-05-17] MEDS: Acyclovir 800 mg Tablet PO SCH ×2 (09:13→20:44)
[2017-05-17] MEDS: levoFLOXacin 750 mg Tablet PO SCH (09:17)
[2017-05-17] MEDS ORDERED: LEUPROLIDE 11.25 MG IM ONE (11:15)
--- NOTE | 2017-05-17 14:29 | PCM.PNMED ---
Subjective Date of Service May 17, 2017 Subjective No overnight events. Exam Vital Signs Vital Sign - Last Date Time Temp Pulse Resp B/P Pulse Ox O2 Delivery O2 Flow Rate FiO2 05/17/17 13:33 36.8 75 16 100/71 98 Room Air Intake and Output 05/16/17 05/16/17 05/17/17 Cumulative From/Thru 15:00 23:00 07:00 05/11/17 22:18 - 05/17/17 05:38 Intake Total 1343 ml 1825 ml 31375 ml Output Total 500 ml 16830 ml Balance 1343 ml 1325 ml 8115 ml Intake Oral 720 ml 5815 ml IV Total 743 ml 1105 ml 95691 ml Packed Cells 300 ml 960 ml Platelets 300 ml 300 ml Output Urine Total 500 ml 42657 ml # Voids 1 # Bowel Movements 0 1 Exam General: No acute distress, well-developed, well-nourished, appropriately interactive Cardiovascular: Regular rate and rhythm with no murmurs, rubs, or gallops appreciated Pulmonary: Clear to auscultation bilaterally with no crackles, wheezes, or rhonchi. Normal respiratory effort with no use of accessory muscles. Abdomen: Bowel tones present. Soft, nontender, nondistended.Epigastric pain on deep palpation Extremities: No clubbing, cyanosis, edema, or lymphadenopathy appreciated. Neurological: Cranial nerves grossly intact. Normal muscle strength, tone, and bulk. Reflexes, coordination, and sensory function within normal limits. IVs and Medications Medications Reviewed: Medications were reviewed in detail Lab and Diagnostics Result Diagram: 05/17/17 0510 05/17/17 0510 X-Rays, CTs and MRIs CT HEAD No Contrast: CONCLUSION: Normal non-contrast scan of the head. Additional Diagnostics HIDA scan IMPRESSION: 1. Nonvisualization of the gallbladder, consistent with cholecystitis, as seen by ultrasound examination dated 05.12.17. Assessment & Plan Ms. Castorena is a 31 female with past medical history of B-cell acute lymphoblastic leukemia, congenital heart murmur with ASD with [id number] shunt who presents with headache. Pancytopenia. Present on admission. Ongoing Secondary to Leukemia. - Platelet transfusion in ED and another 2u 05/16. Plts responded. - Continue to monitor for bleeding, fevers. - 05/15- Ordered another 2u Plts/2u RBC from [facility] in [place] , arranged by Dr. Rodgers. Continue prophylactic acyclovir, fluconazole, Bactrim, and Levaquin. Neutropenia - secondary to chemotherapy - afebrile - neupogen Q24 hrs - on prophylactic abx as listed below - Hem/Onc- Dr. Rodgers following. See above. - ID following, Dr. Lara. Elevated bilirubin 2/2 acute cholecystitis - Total bili elevated, direct normal - HIDA scan +ve for acute cholecystitis - Surgery consutled- Pt asx, no current plans for surgery. Responded to conservative management. Can refer to outpatient surgery if symptoms of acute cholecystitis return after discharge. - Follow LFT's for now. B-cell acute lymphoblastic leukemia ([place] chromosome negative), Present on admission, active CD20 positive per oncology note. - Started daily GCSF 480 mcg subcutaneously on 05/10, QDaily - Acyclovir 800 mg b.i.d. for prophylaxis. - Fluconazole 200 mg daily for prophylaxis. - Levofloxacin 750 mg daily for prophylaxis. - Bactrim DS b.i.d. on Mondays and Tuesdays for prophylaxis. - Dexamethasone 40 mg daily x4 days, for May 14 through May 17. - Dr. Rodgers following, f/u updated recs. Fertility concerns: - The patient is a 3 para 3, but is hoping that she could become following treatments. As per Dr. Rodgers : Lupron 11.5 mg deep IM on May 17, 2017, with initiation of 10 days of letrozole 5 mg daily and norethindrone 5 mg daily to start at that time Headache, Present on admission, resolved - likely secondary to recent lumbar puncture in , completely resolved now Secundum atrial septal defect: - a congenital defect with left to right shunt, evidence of severe right ventricular pressures with severe right atrial enlargement, but normal bilateral ventricular function with a left ventricular ejection fraction greater than 60% - Given that she is likely to be neutropenic and thrombocytopenic for a prolonged time, surgical repair will be deferred until she is no longer receiving chemotherapy. Avoid dramatic fluid shifts and volume overload when giving chemotherapy Dispo: Likely to stay > 2 midnights due to complexity of disease process and treatment associated with it . Code Status: Full Code Dispo: Pending clinical improvement post chemo VTE Prophylaxis: SCDs VTE Mechanical Devices: Intermittant Pneumatic CD Resuscitation Status: CPR: Attempt Resuscitation Rolly Rodriguez MD May 17, 2017 14:29
--- NOTE | 2017-05-17 16:27 | PROG NOTE ---
[address] [address] PROGRESS NOTE PATIENT: NEREIDA CONTRERAS : 1985 MR#: [id number] ADMIT: 05/12/2017 JOB ID: [id number] DATE: 05/17/2017 REASON FOR FOLLOWUP: Cholecystitis in the setting of profound neutropenia due to ALL. INTERVAL HISTORY: Overnight, the patient says she has felt fine. No fevers, chills, sweats. No sore throat, cough, headache, nausea, vomiting, or diarrhea. She received platelet transfusions with good response and had a lumbar puncture and instillation of intrathecal chemotherapy without much difficulty. PHYSICAL EXAMINATION: Reveals an afebrile woman. Temp 36.8, pulse 75, respiratory rate 16, blood pressure 100/71. She is in no distress, eating ice cream. Oral cavity without thrush or pharyngitis. Lungs clear. Cardiac tones with a loud machinery-type holosystolic murmur. Abdomen soft, nontender. Specifically no right upper quadrant tenderness. LABORATORIES: Include white count 100, platelet count 33,000 after a bump to 47,000 yesterday afternoon following yesterday morning's 4000. Creatinine 0.34. Albumin 3.3. Spinal fluid yesterday: Three white cells, 353 red cells. Blood cultures from the remain negative. IMPRESSION: The patient continues to do surprisingly well despite impressive neutropenia as well as severe thrombocytopenia and apparent cholecystitis. Despite the fact that we have a HIDA diagnosis of cholecystitis, she has absolutely no symptoms of cholecystitis and a completely benign right upper quadrant. RECOMMENDATIONS: 1. Continue her prophylactic therapy with acyclovir, fluconazole, Bactrim, and Levaquin. 2. Note the Levaquin should be a reasonable therapeutic agent in terms of acute cholecystitis if that is actually the diagnosis. 3. Will continue to follow this patient along while she is here in the hospital, but I do not believe there is any infectious disease reason to keep her here in the hospital, as long as she can return to the hospital quickly should she develop fevers or other issues.
--- NOTE | 2017-05-17 17:46 | NUR ---
PLAN/LABS Patient Plt 37 today, she will be discharged home Saturday as long as Plt remain > 20. Will get Filgrastim out patient at [facility] Saturday, Leuprolide IM tomorrow at hospital, and continue PO Letrozol for 10days. Chem to restart Saturday in [place]. Patient denies pain, nausea, and shortness of breath, encouraged to take PO fluids, NS 100, PICC x2, VSS, and body make up artist used x3 so patient and family aware of plan and questions answered.
--- NOTE | 2017-05-17 18:24 | NUR ---
Social Work: Continued Discharge Planning/Multidisciplinary Rounds D: EMR reviewed. Pt is on day 5 of hospitalization. Pt discussed in multidisciplinary rounds and is not medically stable for discharge, anticipate 1-2 more days pending Oncology and cultures pending return from [place]. Pt has been up and independent in room. No discharge needs identified, no MD orders received. SW will continue to follow. A: Pt who is independent at baseline and has capacity for self-care. P: Pt anticipated to discharge home via POV when medically stable. SW provided housing resources. SW will continue to follow for needs. GRIFFIN Eng
[2017-05-18] MEDS: 0.9% Sodium Chloride 1,000 ML IV SCH ×3 (01:21→22:45)
[2017-05-18 02:46] VITALS: PULSE 76
--- NOTE | 2017-05-18 02:47 | NUR ---
ACTIVITY: Pt. was up for a while sitting on the edge of her bed visiting with her . Denies pain, denies n/v. Went to bed has been sleeping most of the night. A & O, vss. Cont. to monitor.
[2017-05-18 04:05] VITALS: BP 94/60; PULSE 70; RESP 16; O2SAT 99
[2017-05-18 05:53] VITALS: PULSE 70
[2017-05-18] MEDS: Acyclovir 800 mg Tablet PO SCH ×2 (08:44→20:48)
[2017-05-18] MEDS: levoFLOXacin 750 mg Tablet PO SCH (08:44)
--- NOTE | 2017-05-18 09:33 | PROG NOTE ---
[address] [address] PROGRESS NOTE PATIENT: NEREIDA CONTRERAS : 1985 MR#: [id number] ADMIT: 05/12/2017 JOB ID: [id number] DATE: 05/18/2017 SUBJECTIVE: She continues to be profoundly neutropenic, actually pancytopenic but with no symptoms of cholecystitis and no right upper quadrant pain. General Surgery will stop seeing her though will continue to follow her. I think she should get her gallbladder out, the only question is when. I will discuss this with Dr. Rodgers or oncology on-call whether consideration for a laparoscopic cholecystectomy when she is no longer pancytopenic, but during a break in her chemotherapy is warranted or whether it should simply wait until her treatment for ALL is complete.
[2017-05-18 09:57] VITALS: PULSE 70
[2017-05-18 11:48] VITALS: BP 106/72; PULSE 71; RESP 16; O2SAT 97
[2017-05-18] MEDS ORDERED: .Epic Conversion Completed XX PRN (13:45)
--- NOTE | 2017-05-18 14:43 | PCM.PNMED ---
Subjective Date of Service May 18, 2017 Subjective No overnight events. Exam Vital Signs Vital Sign - Last Date Time Temp Pulse Resp B/P Pulse Ox O2 Delivery O2 Flow Rate FiO2 05/18/17 11:48 36.7 71 16 106/72 97 Room Air Intake and Output 05/17/17 05/17/17 05/18/17 Cumulative From/Thru 15:00 23:00 07:00 05/11/17 22:18 - 05/18/17 05:59 Intake Total 1889 ml 2576 ml 97713 ml Output Total 2000 ml 1650 ml 01830 ml Balance -111 ml 926 ml 8930 ml Intake Oral 640 ml 1440 ml 7895 ml IV Total 1249 ml 1136 ml 33645 ml Packed Cells 960 ml Platelets 300 ml Output Urine Total 2000 ml 1650 ml 02609 ml # Voids 1 # Bowel Movements 0 0 1 Exam General: No acute distress, well-developed, well-nourished, appropriately interactive Cardiovascular: Regular rate and rhythm with no murmurs, rubs, or gallops appreciated Pulmonary: Clear to auscultation bilaterally with no crackles, wheezes, or rhonchi. Normal respiratory effort with no use of accessory muscles. Abdomen: Bowel tones present. Soft, nontender, nondistended.Epigastric pain on deep palpation Extremities: No clubbing, cyanosis, edema, or lymphadenopathy appreciated. Neurological: Cranial nerves grossly intact. Normal muscle strength, tone, and bulk. Reflexes, coordination, and sensory function within normal limits. IVs and Medications Medications Reviewed: Medications were reviewed in detail Lab and Diagnostics Result Diagram: 05/17/17 0510 05/18/17 0600 X-Rays, CTs and MRIs CT HEAD No Contrast: CONCLUSION: Normal non-contrast scan of the head. Additional Diagnostics HIDA scan IMPRESSION: 1. Nonvisualization of the gallbladder, consistent with cholecystitis, as seen by ultrasound examination dated 05.12.17. Assessment & Plan Ms. Castorena is a 31 female with past medical history of B-cell acute lymphoblastic leukemia, congenital heart murmur with ASD with [id number] shunt who presents with headache. Pancytopenia. Present on admission. Ongoing Secondary to Leukemia. - Platelet transfusion in ED and another 2u 05/16. Plts responded. - Continue to monitor for bleeding, fevers. - 05/15- Ordered 2u Plts/2u RBC from [facility] in [place] , arranged by Dr. Rodgers. Continue prophylactic acyclovir, fluconazole, Bactrim, and Levaquin. - Per Dr. Rodgers, as long as plts >10 and Hct > 26 and no active bleeding can be discharged. Will need to [facility] for Neupogen injection and labs. Neutropenia - secondary to chemotherapy - afebrile - neupogen Q24 hrs - on prophylactic abx as listed below - Hem/Onc- Dr. Rodgers following. See above. - ID following, Dr. Lara. Elevated bilirubin 2/2 acute cholecystitis - Total bili elevated, direct normal - HIDA scan +ve for acute cholecystitis - Surgery consutled- Pt asx, no current plans for surgery. Responded to conservative management. Can refer to outpatient surgery if symptoms of acute cholecystitis return after discharge. B-cell acute lymphoblastic leukemia ([place] chromosome negative), Present on admission, active CD20 positive per oncology note. - Started daily GCSF 480 mcg subcutaneously on 05/10, QDaily - Acyclovir 800 mg b.i.d. for prophylaxis. - Fluconazole 200 mg daily for prophylaxis. - Levofloxacin 750 mg daily for prophylaxis. - Bactrim DS b.i.d. on Mondays and Tuesdays for prophylaxis. - Dexamethasone 40 mg daily x4 days, for May 14 through May 17. - Dr. Rodgers following, will follow up as outpatient next week. Fertility concerns: - The patient is a 3 para 3, but is hoping that she could become following treatments. As per Dr. Rodgers : -Lupron 11.5 mg deep subcutaneously (three month dosing) today as well as 10 days of letrozole 5 mg daily and 10 days of norethindrone 5 mg daily Secundum atrial septal defect: - a congenital defect with left to right shunt, evidence of severe right ventricular pressures with severe right atrial enlargement, but normal bilateral ventricular function with a left ventricular ejection fraction greater than 60% - Given that she is likely to be neutropenic and thrombocytopenic for a prolonged time, surgical repair will be deferred until she is no longer receiving chemotherapy. -Avoid dramatic fluid shifts and volume overload when giving chemotherapy -Held Aspirin, should take aspirin for at least six months as long as platelets are greater than 50,000 Dispo: Anticipate discharge in next 1-2 days. Follow up at [facility] Saturday AM for Neupogen injection and labs. - On 05/17 started letrozole 5 mg daily for 10 days and norethindrone 5 mg daily for 10 days. - Continue to get daily G-CSF as an outpatient - Hold Aspirin for now until platelets improve to grater than 50,000. - Return to the [facility] for her next course of treatment beginning approximately May 24, 2017. - Follow up at [facility] Saturday AM for Neupogen injection and labs. VTE Prophylaxis: SCDs VTE Mechanical Devices: Intermittant Pneumatic CD Resuscitation Status: CPR: Attempt Resuscitation Rolly Rodriguez MD May 18, 2017 14:43
[2017-05-18 15:27] LABS: Mean Corpuscular Hemoglobin 29.2 pg (27.0-35.0); Mean Corpuscular Volume 82.7 fL (81-100)
[2017-05-18 15:28] LABS: Platelet Count 20 bil/L (150-400)
--- NOTE | 2017-05-18 17:20 | NUR ---
Activity Pt denies pain during shift, sleeping off and on. Did have c/o sore throat this AM, but had some soup and a popsicle and states now better. VSS, A&O x 3. Labs drawn through PICC for CBC. Pt had expected critical labs again and is aware, no change in treatment plan. Possible discharge tomorrow. Bed in low, call light in reach.
[2017-05-18] MEDS: Ondansetron 2 mg/mL 2 mL Inj IVPUSH PRN (17:39)
--- NOTE | 2017-05-18 17:43 | NUR ---
Nausea TAX EXAMINER found pt vomiting into garbage can. IV nausea meds given, pt resting comfortably.
[2017-05-18 21:05] VITALS: BP 98/60; PULSE 87; RESP 16; O2SAT 99
--- NOTE | 2017-05-18 22:23 | NUR ---
ACTIVITY: During initial assessment pt. resting in bed asleep. When asked if she has any pain or nausea she states after she ate some food from home she developed abdominal pain and nausea. Per RN report she gave her Zofran, the nausea is resolved but still has abdominal pain and sore throat since yesterday. Given 1 tab Tylenol with Codeine. Later on [employer] reported a temp. 38.6, given 650 mg of PO Tylenol. Pt. resting in bed, sleeping mostly. On going care.
--- NOTE | 2017-05-21 18:43 | PATH ---
SURGICAL PATHOLOGY Attending Physician:Shelton Rodgers M.D. ( CASE STATUS: Signed Out PATIENT NAME: NEREIDA CONTRERAS PID: [id number] : 1985 DATE COLLECTED:05/16/2017 00:00 SPECIMEN: Cerebrospinal Fluid CLINICAL HISTORY: Cerebrospinal Fluid FINAL DIAGNOSIS: Cerebrospinal Fluid: Negative for malignant cells. ICD10: C91.0 NOTE: A single Cytospin slide is prepared, which shows numerous histiocytes and few bland-appearing lymphocytes in a background of numerous red blood cells. No lymphoblasts are identified. GROSS DESCRIPTION: Received fresh on 05/17/2017 is approximately 6 cc of clear colorless fluid. Prepared is one Cytospin slides. Vo ICD-9 CODES: CPT CODES: 1: 61220 Electronically Signed Out Ej Cabrera MD, Ph.D. [facility], [place] [address] Technical component performed at [facility], [address] [place] [address] Ave[address], [place], [address]
== END 2017-05-19 01:26 | disposition admitted as inpatient to this hospital (09) | DRG 809 ==
LOC: SED 21:45 → OBSVTOIN 05-12 00:50 → OSC 05-12 00:50
PROVIDERS: ADMIT Hospitalist; ATTEND Internal Medicine
DX: D61.810 Antineoplastic chemotherapy induced pancytopenia (principal); C91.00 Acute lymphoblastic leukemia not having achieved remission; G97.1 Other reaction to spinal and lumbar puncture